=== PATIENT | female | born 1950 | race African-American/Black ===

== ENCOUNTER 2020-04-25 18:29 | Inpatient (IN) | payer OTHER ==
[2020-04-25] MEDS ORDERED: ACETAMINOPHEN 1000 MG/100 ML VIAL (NON FORMULARY) IVPB ONE (19:01)
[2020-04-25] MEDS ORDERED: ONDANSETRON 4 MG/2 ML VIAL IVPUSH ONE (19:01)
--- NOTE | 2020-04-25 19:02 | PDOC ---
History of Present Illness - General Chief Complaint: Pain, Acute Stated Complaint: ABD/PAIN/ALL QUADRANTS Time Seen by Provider: 04/25/20 18:46 - History of Present Illness Initial Comments: Consuelo Sanchez is a 69 y/o female with PMH significant for MS, sarcoidosis, HTN, HLD, presenting today with abdominal pain and fullness. Reports that she had a colonoscopy with Dr. Monsalve done on . Reports she has been feeling diffuse abdominal pain and fullness since . Reports nausea and vomiting w/o blood approx once a day. Has not had a bowel movement since Monday night (bowel prep). Has not been eating much much but able to tolerate PO fluids. She was prescribed pantoprazole and zofran after the colonoscopy. Reports diffuse abdominal pain that is worsening and abdominal fullness. No blood in the stool. No diarrhea. No dysuria. No headache/dizziness. No chest pain/shortness of breath. SurgHx: s/p hysterectomy and myomectomy Past History - Medical History Allergies/Adverse Reactions: Allergies Allergy/AdvReac Type Severity Reaction Status Date / Time No Known Allergies Allergy Verified 11/16/14 10:13 Home Medications: Ambulatory Orders Alendronate Sodium [Binosto] 70 mg PO DAILY 11/16/14 Clopidogrel Bisulfate [Plavix -] 75 mg PO DAILY 11/16/14 Pramipexole Di-HCl [Mirapex] 0.125 mg PO BID 11/16/14 Simvastatin [Zocor -] 20 mg PO DAILY 11/16/14 Irbesartan [Avapro] 150 mg PO DAILY 04/25/20 Ondansetron [Zofran *Odt*] 4 mg SL TID PRN 04/25/20 Pantoprazole Sodium [Protonix -] 40 mg PO DAILY 04/25/20 Spironolactone [Aldactone] 25 mg PO DAILY 04/25/20 Anemia: (PLATELET PROBLEMS IN PAST.) CVA: (RULING OUT MS PER RENALDO.) HTN: Yes Hypercholesterolemia: Yes - Surgical History Abdominal Surgery: Yes - Immunization History Immunization Up to Date: Yes (FLU UP TO DATE) - Psycho-Social/Smoking History Smoking History: Smoker current status UNK Have you smoked in the past 12 months: No - Substance Abuse Hx (Audit-C & DAST Scrn) How often the patient has a drink containing alcohol: Never Score: In Men: 4 or > Positive; In Women: 3 or > Positive: 0 Screen Result (Pos requires Nsg. Audit-10AR): Negative In the last yr the pt used illegal drug/Rx for NonMed reason: No Score: Yes response is considered Positive: 0 Screen Result (Positive result requires Nsg. DAST-10): Negative Review of Systems - Review of Systems Comments:: GENERAL/CONSTITUTIONAL: No fever or chills. No weakness._ HEAD, EYES, EARS, NOSE AND THROAT: No change in vision. No change in hearing. No sore throat._ CARDIOVASCULAR: No chest pain or shortness of breath_ RESPIRATORY: Denies cough, hemoptysis_ GASTROINTESTINAL: Reports nausea, vomiting, abdominal pain and fullness. GENITOURINARY: No dysuria, frequency, or change in urination._ MUSCULOSKELETAL: No joint or muscle swelling or pain. No neck or back pain._ SKIN: No rash_ NEUROLOGIC: No headache, vertigo, loss of consciousness, or change in strength/sensation._ ENDOCRINE: No increased thirst. No abnormal weight change_ HEMATOLOGIC/LYMPHATIC: No anemia, easy bleeding, or history of blood clots._ ALLERGIC/IMMUNOLOGIC: No hives or skin allergy._ *Physical Exam - Vital Signs Last Vital Signs Temp Pulse Resp BP Pulse Ox 98 F 125 H 18 109/70 99 04/25/20 18:37 04/25/20 18:37 04/25/20 18:37 04/25/20 18:37 04/25/20 18:37 - Physical Exam GENERAL: Awake, alert, and oriented to person/place/time, in no acute distress_ HEAD: No signs of trauma, normocephalic, atraumatic _ EYES: PERRLA, EOMI, sclera anicteric, conjunctiva clear_ ENT: Hearing grossly normal, nares patent, oropharynx clear without exudates. No uvular deviation. Moist mucosa_ NECK: Normal ROM, supple, no lymphadenopathy, JVD, or masses_ LUNGS: No distress, speaks in full sentences, clear to auscultation bilaterally _ HEART: Regular rate and rhythm, normal S1 and S2, no murmurs appreciated, peripheral pulses normal and equal bilaterally._ ABDOMEN: Soft, minimal tenderness, distended and full without fluid wave, normoactive bowel sounds. No guarding, no rebound. No masses_ EXTREMITIES: Normal inspection, Normal range of motion, no edema. No clubbing or cyanosis_ NEUROLOGICAL: Cranial nerves II through XII grossly intact. Normal speech, normal gait, no focal sensorimotor deficits _ SKIN: Warm, Dry, normal turgor, no rashes or lesions noted_ ED Treatment Course - LABORATORY CBC & Chemistry Diagram: 04/26/20 06:20 04/26/20 06:20 - RADIOLOGY Radiology Studies Ordered: Category Date Time Status ABDOMEN & PELVIS CT WITH CONTR [CT] Stat CT Scan 04/25/20 18:56 Ordered CHEST X-RAY PORTABLE* [RAD] Stat Radiology 04/25/20 18:57 Ordered Medical Decision Making - Medical Decision Making 04/25/20 19:00 69F s/p colonoscopy on presenting today with worsening abdominal pain and fullness. Took pantoprazole and zofran per Dr. Monsalve. Vomiting NBNB once a day. No BM since Monday night. Has not been eating but tolerating PO fluids. -cbc, cmp -ekg, trop, cxr -CT abd w/ IV contrast -lactic -tylenol -zofran 04/25/20 20:23 CXR shows concern for free air under diaphragm. Case d/w Dr. Monsalve. Will obtain CT abd w/o contrast. Pt started on rocephin and flagyl. Morphine for pain control. [address] Monsalve: [phone] 04/25/20 20:30 EKG shows 110bpm, sinus tachycardia, no axis deviation, WI 116, QTc 441, no ST elevation/depression, no prior for comparison. 04/25/20 21:05 Labs reviewed. Laboratory Last Values WBC 4.0 K/mm3 (4.0-10.0) 04/25/20 19:35 RBC 3.67 M/mm3 (3.60-5.2) 04/25/20 19:35 Hgb 11.0 GM/dL (10.7-15.3) 04/25/20 19:35 Hct 32.8 % (32.4-45.2) 04/25/20 19:35 MCV 89.3 fl (80-96) 04/25/20 19:35 MCH 30.0 pg (25.7-33.7) 04/25/20 19:35 MCHC 33.6 g/dl (32.0-36.0) 04/25/20 19:35 RDW 14.2 % (11.6-15.6) 04/25/20 19:35 Plt Count 214 K/MM3 (134-434) D 04/25/20 19:35 MPV 8.5 fl (7.5-11.1) 04/25/20 19:35 Absolute Neuts (auto) 2.8 K/mm3 (1.5-8.0) 04/25/20 19:35 Neutrophils % 70.4 % (42.8-82.8) 04/25/20 19:35 Lymphocytes % 11.0 % (8-40) 04/25/20 19:35 Monocytes % 18.2 % (3.8-10.2) H 04/25/20 19:35 Eosinophils % 0.1 % (0-4.5) 04/25/20 19:35 Basophils % 0.3 % (0-2.0) 04/25/20 19:35 Nucleated RBC % 0 % (0-0) 04/25/20 19:35 PT with INR 12.50 SEC (9.7-13.0) 04/25/20 19:35 INR 1.06 (0.83-1.09) 04/25/20 19:35 PTT (Actin FS) 27.6 SECONDS (25.2-36.5) 04/25/20 19:35 Sodium 132 mmol/L (136-145) L 04/25/20 19:35 Potassium 3.6 mmol/L (3.5-5.1) 04/25/20 19:35 Chloride 93 mmol/L (98-107) L 04/25/20 19:35 Carbon Dioxide 33 mmol/L (21-32) H 04/25/20 19:35 Anion Gap 7 MMOL/L (8-16) L 04/25/20 19:35 BUN 26.6 mg/dL (7-18) H 04/25/20 19:35 Creatinine 0.8 mg/dL (0.55-1.3) 04/25/20 19:35 Est GFR (CKD-EPI)AfAm 86.57 04/25/20 19:35 Est GFR (CKD-EPI)NonAf 74.70 04/25/20 19:35 Random Glucose 118 mg/dL (74-106) H 04/25/20 19:35 Lactic Acid 2.0 mmol/L (0.4-2.0) 04/25/20 19:35 Calcium 10.5 mg/dL (8.5-10.1) H 04/25/20 19:35 Total Bilirubin 1.1 mg/dL (0.2-1) H 04/25/20 19:35 AST 38 U/L (15-37) H 04/25/20 19:35 ALT 29 U/L (13-61) 04/25/20 19:35 Alkaline Phosphatase 71 U/L (45-117) 04/25/20 19:35 Creatine Kinase 102 U/L (26-192) 04/25/20 19:35 Troponin I < 0.02 ng/ml (0.00-0.05) 04/25/20 19:35 Total Protein 7.5 g/dl (6.4-8.2) 04/25/20 19:35 Albumin 3.8 g/dl (3.4-5.0) 04/25/20 19:35 04/25/20 21:33 CT abd findings d/w radiologist. SBO with transition point in the pelvis. No signs of free air in the abdomen. Trace ascites. Case d/w with Dr. Duong. Will admit with NGT. NGT tube placed with gastric content return. CXR ordered. 04/25/20 22:27 D/w Dr. Tovar who accepts the patient for admission under Dr. Barriga. 04/25/20 23:30 CXR shows NGT past the GE junction. Discharge - Discharge Information Problems reviewed: Yes Clinical Impression/Diagnosis: SBO (small bowel obstruction) Condition: Guarded - Admission Yes - Follow up/Referral - Patient Discharge Instructions - Post Discharge Activity
[2020-04-25] MEDS ORDERED: ACETAMINOPHEN INJECTION 100 ML IVPB ONE (19:44)
[2020-04-25 19:54] LABS: BASO % 0.3 % (0-2.0); EOS % 0.1 % (0-4.5); HEMATOCRIT 32.8 % (32.4-45.2); MCHC 33.6 g/dl (32.0-36.0); MEAN CELL VOLUME 89.3 fl (80-96); MEAN PLT VOLUME 8.5 fl (7.5-11.1); MONO % 18.2 % (3.8-10.2); NEUT % 70.4 % (42.8-82.8); PLATELET COUNT 214 K/MM3 (134-434); RBC 3.67 M/mm3 (3.60-5.2); RDW 14.2 % (11.6-15.6)
--- NOTE | 2020-04-25 20:10 | PDOC ---
Attending Attestation - Resident Resident Name: Darius Sarabia - ED Attending Attestation I have performed the following: I have examined & evaluated the patient, The case was reviewed & discussed with the resident, I agree w/resident's findings & plan - HPI HPI: 04/25/20 20:27 Pt comes with inability to eat properly or pee after colonsocopy done Thurs. Pt is uncomfortable. Ate a hard boiled egg today Pt looks weak and dehydrated. SHe is complaint with her meds Afebrile - Physicial Exam PE: 04/25/20 20:28 Pt appears unwell pale and thin heart tachy lungs CTAB abd diffuse discomfort; but no rigidity or guarding no flank pain neuro exam normal - Medical Decision Making 04/25/20 20:10 R/O perf CBC is normal 04/25/20 20:29 portable CXR shows free air under diaphragm. Sent to imaging irrigation worker for read. 04/25/20 21:00 Pt had coffee ground emesis. She will be given 80 mg protonix Pt understa 04/25/20 20:31 Patient Name: STEFANIE FATIMA THIS IS A PRELIMINARY REPORT DATE OF SERVICE: 2020-04-25 19:57:19 IMAGES: 2 EXAM: CHEST X-RAY PORTABLE* HISTORY: Abdominal distention COMPARISON: None. FINDINGS: No airspace consolidation. No pneumothorax. The costophrenic angles are well defined Likely scarring in the right mid lung field The cardiomediastinal silhouette is within normal limits The bony thorax is unremarkable Multiple prominent gas-filled loops of bowel in the right upper quadrant. Left subdiaphragmatic. lucency may also reflect gas-filled bowel in the left upper quadrant, however intra-abdominal free air cannot be excluded. Consider further evaluation with CT 04/25/20 21:44 Patient Name: STEFANIE FATIMA FINDINGS: There is subsegmental, dependent and compressive atelectasis at the lung bases Calcified subcarinal and bilateral hilar lymph nodes compatible with old granulomatous disease The visualized distal esophagus is distended with fluid, likely refluxed There are multiple distended loops of small bowel containing fluid with scattered air-fluid levels extending to a transition in the pelvis best seen on axial images 86 through 90 with decompression of the bowel distally compatible with small bowel obstruction. Suspected adhesions. There is trace ascites in the pelvis and mesenteric edema in the region of transition. No intra-abdominal free air The stomach is markedly distended with fluid Multiple stones within a decompressed gallbladder The liver, spleen, pancreas, adrenal glands and kidneys are grossly normal allowing for lack of intravenous contrast 04/25/20 21:46 Discharge - Discharge Information Problems reviewed: Yes Clinical Impression/Diagnosis: SBO (small bowel obstruction) Condition: Guarded - Follow up/Referral - Patient Discharge Instructions - Post Discharge Activity
[2020-04-25 20:12] LABS: INR 1.06 (0.83-1.09); PROTHROMBIN TIME (PATIENT) 12.5 SEC (9.7-13.0)
[2020-04-25] MEDS ORDERED: CEFTRIAXONE 1 GM in DEXTROSE 5%-WATER - 50 ML IVPB ONE (20:14)
[2020-04-25 20:15] LABS: ACTIVATED PTT 27.6 SECONDS (25.2-36.5)
[2020-04-25] MEDS ORDERED: MORPHINE SULFATE 2 MG/ML VIAL ONE ×2 (20:20→21:17)
[2020-04-25] MEDS ORDERED: LACTATED RINGERS SOLUTION 1000 ML INFUS.BAG IV ONE (20:22)
[2020-04-25] MEDS ORDERED: morphine CARPU-JECT 2 MG/1 ML DISP.SYRIN IVPUSH ONE ×2 (20:22→20:59)
[2020-04-25] MEDS ORDERED: CEFTRIAXONE 1 GM/50 ML BAG ONE (20:31)
[2020-04-25 20:34] LABS: ALBUMIN 3.8 g/dl (3.4-5.0); ALK PHOS 71 U/L (45-117); ANION GAP 7 MMOL/L (8-16); BILIRUBIN,TOTAL 1.1 mg/dL (0.2-1); BLOOD UREA NITROGEN 26.6 mg/dL (7-18); CALCIUM 10.5 mg/dL (8.5-10.1); CHLORIDE 93 mmol/L (98-107); CO2 33 mmol/L (21-32); CREATININE 0.8 mg/dL (0.55-1.3); GLUCOSE,RANDOM 118 mg/dL (74-106); POTASSIUM 3.6 mmol/L (3.5-5.1); SGOT/AST 38 U/L (15-37); SGPT/ALT 29 U/L (13-61); SODIUM 132 mmol/L (136-145); TOT PROT 7.5 g/dl (6.4-8.2)
[2020-04-25] MEDS ORDERED: PANTOPRAZOLE SODIUM 40 MG VIAL IVPB ONE (20:58)
[2020-04-25] MEDS ORDERED: PANTOPRAZOLE SODIUM 80 MG/200 ML BAG IVPB ONE (20:59)
--- NOTE | 2020-04-25 22:13 | PN ---
Teaching Attending Note Name of Resident: Cyndi Tovar ATTENDING PHYSICIAN STATEMENT I saw and evaluated the patient. I reviewed the resident's note and discussed the case with the resident. I agree with the resident's findings and plan as documented. SUBJECTIVE: Patient is a 69 year old woman with a PMH of Multiple sclerosis, Hysterectomy, Myomectomy, Sarcoidosis, HTN and HLD who presents to the ER with abdominal pain and fullness. Reports that she had a colonoscopy with Dr. Monsalve done on . Reports she has been feeling diffuse abdominal pain and fullness since . Reports nausea and vomiting without blood abouts once a day. Has not had a bowel movement since Monday night (bowel prep). Has not been eating much much but able to tolerate PO fluids. She was prescribed Pantoprazole and Zofran after the colonoscopy. Reports diffuse abdominal pain that is worsening and abdominal fullness. Vomited once in the ER. Denies blood in the stool, diarrhea, dysuria, headache/dizziness, chest pain, shortness of breath, fever or chills. Denies alcohol, tobacco or illicit drug use. No sick contacts or recent travels. Family history - father from [place]. OBJECTIVE: Alert Vital Signs Period Temp Pulse Resp BP Sys/Christopher Pulse Ox Last 24 Hr 98 F 125 18 109/70 99 HEENT: No Jaundice, eye redness or discharge, PERRLA, EOMI. Normocephalic, atraumatic. External ears are normal and hearing is grossly intact. No nasal discharge. Neck: Supple, nontender. No palpable adenopathy or thyromegaly. No JVD Chest: Good effort. Clear to auscultation and percussion. Heart: Regular. No S3, rub or murmur Abdomen: Distended, soft and tender and no HSM. No rebound or guarding. Normal bowel sounds. Ext: Peripheral pulses intact. No leg edema. Skin: Warm and dry. No petechiae, rash or ecchymosis. Neuro: Alert. Oriented x3. CN 2-12 grossly intact. Sensation grossly intact in all four extremities and DTR are symmetric. Psych: Appropriate mood and affect. Good insight. Home Medications Medication Instructions Recorded Alendronate Sodium [Binosto] 70 mg PO DAILY 11/16/14 Clopidogrel Bisulfate [Plavix -] 75 mg PO DAILY 11/16/14 Pramipexole Di-HCl [Mirapex] 0.125 mg PO BID 11/16/14 Simvastatin [Zocor -] 20 mg PO DAILY 11/16/14 Irbesartan [Avapro] 150 mg PO DAILY 04/25/20 Ondansetron [Zofran *Odt*] 4 mg SL TID PRN 04/25/20 Pantoprazole Sodium [Protonix -] 40 mg PO DAILY 04/25/20 Spironolactone [Aldactone] 25 mg PO DAILY 04/25/20 Abnormal Lab Results 04/25/20 04/25/20 19:35 19:35 Monocytes % 18.2 H Sodium 132 L Chloride 93 L Carbon Dioxide 33 H Anion Gap 7 L BUN 26.6 H Random Glucose 118 H Calcium 10.5 H Total Bilirubin 1.1 H AST 38 H ASSESSMENT AND PLAN: 1. Small bowel obstruction - CT scan of abdomen/pelvis without contrast shows - "There is subsegmental, dependent and compressive atelectasis at the lung bases. Calcified subcarinal and bilateral hilar lymph nodes compatible with old granulomatous disease. The visualized distal esophagus is distended with fluid, likely refluxed. There are multiple distended loops of small bowel containing fluid with scattered air-fluid levels extending to a transition in the pelvis best seen on axial images 86 through 90 with decompression of the bowel distally compatible with small bowel obstruction. Suspected adhesions. There is trace ascites in the pelvis and mesenteric edema in the region of transition. No intra-abdominal free air. The stomach is markedly distended with fluid. Multiple stones within a decompressed gallbladder. The liver, spleen, pancreas, adrenal glands and kidneys are grossly normal allowing for lack of intravenous contrast." CXR shows increased interstitial markings, perihilar calcified nodules/lymphnodes (R>L) and hilar prominence. ER staff prescribed Tylenol, Zofran, Protonix, IV LR, IV Ceftriaxone, IV Flagyl and IV Morphine for the patient. Will avoid IV LR, use IV NS and keep her NPO. Surgery consulted and NGT is being placed. Hypercalcemia likely due to sarcoidosis - IV NS will enhance calcium excretion and correct dehydration. EKG shows sinus tachycardia at 110/minute and QTc [address]-T wave changes. Initial troponin is negative. Viral testing for COVID-19 ordered and patient placed on airborne, droplet and contact isolation. Will continue comprehensive care for all of patients comorbid conditions. 2. Hypertension Hold antihypertensive drugs for low BP. Restart suitable outpatient antihypertensive drugs when clinically appropriate. Subsequently, will revise regimen to ensure [id number] excellent BP control. Patient counseled on the injurious effects of uncontrolled hypertension. Nonpharmacologic measures to control hypertension like weight loss, salt restriction and exercise stressed. Importance of adherence to treatment regimen and attainment of normotension emphasized. 3. DVT prophylaxis - SCD. 4. Advance directives - Full code
[2020-04-25] MEDS ORDERED: MORPHINE SULFATE 2 MG/ML VIAL IVPUSH PRN (23:03)
[2020-04-25] MEDS ORDERED: SODIUM CHLORIDE 1,000 ML IV SCH (23:15)
--- NOTE | 2020-04-25 23:22 | HP ---
CHIEF COMPLAINT: Abdominal pain/fullness/urinary retention PCP: Luis Combs HISTORY OF PRESENT ILLNESS: Pt is a 69 year old female with PMHx of MS, sarcoidosis, HTN and HLD presenting with abdominal pain and fullness since after her colonoscopy with Dr. Monsalve. Pt states she has not urinated or had a bowel movement since then. She states she also has had one daily episode of dark black vomit since . Pt states she has been able to tolerate PO fluids, and had a hard boiled egg this morning that she was able to keep down. Pt states the abdominal pain and fullness has been constant since . Pt states she was given Zofran and Protonix to take after her colonoscopy which have not been of any help. Pt denies fever, chills, SOB, diarrhea. Constipated and not urinated since ER course was notable for: (1) Rocephin, flagyl for concern of free air under diaphragm (2) CT/abd pelvis shows SBO with transition point in pelvis, no intraabdoinal free air notes; bilateral hilar lymph nodes calcified consistent with sarcoid; trace ascites; atelectsais at lung bases (3) [place] catheter placed, NG/NPO/IVF per Dr. Duong (surgery) Recent Travel: Denies PAST MEDICAL HISTORY: As stated in HPI PAST SURGICAL HISTORY: Hysterectomy 1989 Myomectomy 2000 Social History: Smoking: Denies Alcohol: Denies Drugs: Denies Allergies No Known Allergies Allergy (Verified 11/16/14 10:13) HOME MEDICATIONS: Home Medications Medication Instructions Recorded Alendronate Sodium [Binosto] 70 mg PO DAILY 11/16/14 Clopidogrel Bisulfate [Plavix -] 75 mg PO DAILY 11/16/14 Pramipexole Di-HCl [Mirapex] 0.125 mg PO BID 11/16/14 Simvastatin [Zocor -] 20 mg PO DAILY 11/16/14 Irbesartan [Avapro] 150 mg PO DAILY 04/25/20 Ondansetron [Zofran *Odt*] 4 mg SL TID PRN 04/25/20 Pantoprazole Sodium [Protonix -] 40 mg PO DAILY 04/25/20 Spironolactone [Aldactone] 25 mg PO DAILY 04/25/20 REVIEW OF SYSTEMS CONSTITUTIONAL: Absent: fever, chills, diaphoresis, generalized weakness, malaise, loss of appetite, weight change HEENT: Absent: rhinorrhea, nasal congestion, throat pain, throat swelling, difficulty swallowing, mouth swelling, ear pain, eye pain, visual changes CARDIOVASCULAR: Absent: chest pain, syncope, palpitations, irregular heart rate, lightheadedness, peripheral edema RESPIRATORY: Absent: cough, shortness of breath, dyspnea with exertion, orthopnea, wheezing, stridor, hemoptysis GASTROINTESTINAL: Abdominal pain/distension/nausea and vomiting/constipation Absent: diarrhea, melena, hematochezia GENITOURINARY: Absent: dysuria, frequency, urgency, hesitancy, hematuria, flank pain, genital pain MUSCULOSKELETAL: Absent: myalgia, arthralgia, joint swelling, back pain, neck pain SKIN: Absent: rash, itching, pallor HEMATOLOGIC/IMMUNOLOGIC: Absent: easy bleeding, easy bruising, lymphadenopathy, frequent infections ENDOCRINE: Absent: unexplained weight gain, unexplained weight loss, heat intolerance, cold intolerance NEUROLOGIC: Absent: headache, focal weakness or paresthesias, dizziness, unsteady gait, seizure, mental status changes, bladder or bowel incontinence PSYCHIATRIC: Absent: anxiety, depression, suicidal or homicidal ideation, hallucinations. PHYSICAL EXAMINATION Vital Signs - 24 hr 04/25/20 18:37 Temperature 98 F Pulse Rate 125 H Respiratory 18 Rate Blood Pressure 109/70 O2 Sat by Pulse 99 Oximetry (%) GENERAL: Awake, alert, and fully oriented, in no acute distress. HEAD: Normal with no signs of trauma. EYES: Pupils equal, round and reactive to light, extraocular movements intact, sclera anicteric, conjunctiva clear. No lid lag. EARS, NOSE, THROAT: Ears normal, nares patent, oropharynx clear without exudates. Moist mucous membranes. NECK: Normal range of motion, supple without lymphadenopathy, JVD, or masses. LUNGS: Breath sounds equal, clear to auscultation bilaterally. No wheezes, and no crackles. No accessory muscle use. HEART: Regular rate and rhythm, normal S1 and S2 without murmur, rub or gallop. ABDOMEN: Soft, tender, distended, hypoactive bowel sounds. no guarding, no rebound, no masses. No hepatomegaly or splenomegaly. MUSCULOSKELETAL: Normal range of motion at all joints. No bony deformities or tenderness. No CVA tenderness. UPPER EXTREMITIES: 2+ pulses, warm, well-perfused. No cyanosis. No clubbing. No peripheral edema. LOWER EXTREMITIES: 2+ pulses, warm, well-perfused. No calf tenderness. No peripheral edema. NEUROLOGICAL: Cranial nerves II-XII intact. Normal speech. Normal gait. PSYCHIATRIC: Cooperative. Good eye contact. Appropriate mood and affect. SKIN: Warm, dry, normal turgor, no rashes or lesions noted, normal capillary refill. Laboratory Results - last 24 hr 04/25/20 04/25/20 04/25/20 19:35 19:35 19:35 WBC 4.0 RBC 3.67 Hgb 11.0 Hct 32.8 MCV 89.3 MCH 30.0 MCHC 33.6 RDW 14.2 Plt Count 214 D MPV 8.5 Absolute Neuts (auto) 2.8 Neutrophils % 70.4 Lymphocytes % 11.0 Monocytes % 18.2 H Eosinophils % 0.1 Basophils % 0.3 Nucleated RBC % 0 PT with INR 12.50 INR 1.06 PTT (Actin FS) 27.6 Sodium 132 L Potassium 3.6 Chloride 93 L Carbon Dioxide 33 H Anion Gap 7 L BUN 26.6 H Creatinine 0.8 Est GFR (CKD-EPI)AfAm 86.57 Est GFR (CKD-EPI)NonAf 74.70 Random Glucose 118 H Lactic Acid Calcium 10.5 H Total Bilirubin 1.1 H AST 38 H ALT 29 Alkaline Phosphatase 71 Creatine Kinase 102 Troponin I < 0.02 Total Protein 7.5 Albumin 3.8 04/25/20 19:35 WBC RBC Hgb Hct MCV MCH MCHC RDW Plt Count MPV Absolute Neuts (auto) Neutrophils % Lymphocytes % Monocytes % Eosinophils % Basophils % Nucleated RBC % PT with INR INR PTT (Actin FS) Sodium Potassium Chloride Carbon Dioxide Anion Gap BUN Creatinine Est GFR (CKD-EPI)AfAm Est GFR (CKD-EPI)NonAf Random Glucose Lactic Acid 2.0 Calcium Total Bilirubin AST ALT Alkaline Phosphatase Creatine Kinase Troponin I Total Protein Albumin ASSESSMENT/PLAN: Pt is a 69 year old female with PMHx MS, sarcoidosis, HTN and HLD presenting with abdominal pain and fullness, no urination or bowel movements since after her colonoscopy with Dr. Monsalve admitted for SBO as seen on CT #Small bowel obstruction -CT ab/pelvis showing SBO without free air with transition point in pelvis -Rec'd flagyl and rocephin in ED due to concern of free air; ruled out on imaging; no leukocytosis/afebrile/lactic WNL -Surgery consulted; IVF/NPO/NGT -[place] catheter placed due to lack of urination since -PRN morphine #Hx of HTN -On ibersartan at home -Held -BP 109/70 #Hx of Sarcoidosis -calcified bilateral hilar lymph nodes seen on CT/cxr -continue home alendronate -Ca 10.5 #Hx of MS #Hx of HLD -continue home statin FEN: NPO IVF NGT Monitor electrolytes PPX: SCD Dispo Admitted to med surg. SBO --> NPO/IVF/NGT. [place] placed for urinary retention since . Monitor improvement. Consulted surg. Family Medical History Family History: As Documented Visit type - Medication Review Med list reviewed for High Risk Meds patients 65 and older: Yes - Emergency Visit Emergency Visit: Yes ED Registration Date: 04/25/20 Care time: The patient presented to the Emergency Department on the above date and was hospitalized for further evaluation of their emergent condition. - New Patient This patient is new to me today: No - Critical Care Critical Care patient: No ATTENDING PHYSICIAN STATEMENT I saw and evaluated the patient. I reviewed the resident's note and discussed the case with the resident. I agree with the resident's findings and plan as documented. SUBJECTIVE: OBJECTIVE: ASSESSMENT AND PLAN:
[2020-04-26] MEDS ORDERED: MORPHINE SULFATE 2 MG/ML VIAL IVPUSH PRN (00:19)
[2020-04-26 01:26] LABS: URINE APPEARANCE CLOUDY; URINE BILIRUBIN NEGATIVE (NEGATIVE); URINE COLOR DK YELLOW; URINE GLUCOSE (UA) NEGATIVE (NEGATIVE); URINE KETONE TRACE (NEGATIVE); URINE LEUK ESTERASE NEGATIVE (NEGATIVE); URINE NITRITE NEGATIVE (NEGATIVE); URINE PROTEIN TRACE (NEGATIVE)
[2020-04-26] MEDS ORDERED: MORPHINE SULFATE 2 MG/ML VIAL ONE (03:18)
[2020-04-26 07:13] LABS: BASO % 0.1 % (0-2.0); HEMATOCRIT 29.6 % (32.4-45.2); HEMOGLOBIN 10.1 GM/dL (10.7-15.3); LYMPH % 19.4 % (8-40); MCH 30.4 pg (25.7-33.7); MCHC 34.3 g/dl (32.0-36.0); MEAN CELL VOLUME 88.8 fl (80-96); MONO % 19.2 % (3.8-10.2); NEUT % 58.3 % (42.8-82.8); PLATELET COUNT 166 K/MM3 (134-434); RBC 3.33 M/mm3 (3.60-5.2); RDW 13.8 % (11.6-15.6)
[2020-04-26 07:20] LABS: WHITE BLOOD COUNT 1.3 K/mm3 (4.0-10.0)
[2020-04-26 07:21] LABS: BLOOD UREA NITROGEN 22.8 mg/dL (7-18); CALCIUM 9.4 mg/dL (8.5-10.1); CREATININE 0.6 mg/dL (0.55-1.3); PHOSPHOROUS 3.5 mg/dL (2.5-4.9); POTASSIUM 3.5 mmol/L (3.5-5.1)
--- NOTE | 2020-04-26 08:14 | PN ---
Progress Note (short form) - Note Progress Note: S: 69yo F who presented due to abdominal pain and distention admitted due to likely small bowel obstruction. Pt had colonoscopy performed with Dr. Monsalve on 04/23/2020 without significant findings (per patient) and started having fullness shortly thereafter. Patient noted development of nausea and NB/NB vomiting and came to the hospital as a result. Patient's las BM was 04/22 with her bowel prep and she has not been eating much due to feeling unwell. Pt was tolerating fluids. Pt currently has diffuse abdominal pain and distention. No fevers, no true shortness of breath, no CP. Vital Signs Temperature 97.9 F 04/26/20 06:21 Pulse Rate 110 H 04/26/20 06:21 Respiratory Rate 18 04/26/20 07:30 Blood Pressure 130/72 04/26/20 06:21 O2 Sat by Pulse Oximetry (%) 93 L 04/26/20 07:30 GENERAL: Awake, alert, and fully oriented, in no acute distress. HEENT: NC/AT, EOMI, VIVI, anicteric sclera, MMM, NGT in nare without ulceration: 150cc bilious output LUNG: CTA b/l with shallow inspirations, no wheezes or rales CARD: RRR no murmurs ABD: Soft, diffuse mild tenderness, distended with hypoactive BS, no guarding, no rebound. No hernias appreciated. EXT: No edema, no calf tendernes, strong disal pulses SKIN: No rashes or lesions; no ecchymotic areas CBC, BMP 04/26/20 06:20 04/26/20 06:20 Assessment and Plan: Small bowel obstruction with transition point Cholelithiasis Leukopenia Normocytic Anemia CAD Hyponatremia History of HTN History of MS --SBO with transition point in pelvis --NGT decompression with strict NPO --Surgery and GI on board --Considering leukopenia and normocytic anemia will cover with broad spectrum antibiotics, however will repeat CBC to ensure accuracy --Avoid opiate pain mitigation unless severe pain; optimize Tylenol dosing --Holding all nonessential PO medications due to above. --AXR today noted with dilated bowel loops --Repeat AXR in AM --Monitor NGT drain output Dispo: Monitor M/S Saud Pretty, DO - IM
[2020-04-26] MEDS ORDERED: ACETAMINOPHEN 1000 MG/100 ML VIAL (NON FORMULARY) IVPB PRN (08:18)
[2020-04-26 09:13] LABS: ANISOCYTOSIS 1+; MACROCYTOSIS 0; PLATELET ESTIMATE NORMAL
[2020-04-26] MEDS ORDERED: CEFTRIAXONE 1 GM/50 ML BAG ONE (10:38)
[2020-04-26] MEDS: CEFTRIAXONE 1 GM in DEXTROSE 5%-WATER - 50 ML IVPB SCH (10:47)
--- NOTE | 2020-04-26 13:12 | CONSULT ---
- Consultation REQUESTING PROVIDER: CONSULT REQUEST: We have been asked to surgically evaluate this patient for (specify). Hospitalist:Saud Pretty MD HISTORY OF PRESENT ILLNESS:SUSANA who is a is a 69 y/o female who presented to the [facility] ED 04/25/2020 with abdominal pain and fullness. She had a colonoscopy with Dr. Monsalve done on 04/23/2020 as a " f/u". She reports she has been feeling diffuse abdominal pain and fullness since immediately after the procedure and perhaps before. Reports nausea and vomiting. She has not had a bowel movement since 04/22/2020 since the bowel prep. She has not been eating but is able to tolerate PO fluids. She was prescribed pantoprazole and zofran after the colonoscopy. She states she has diffuse abdominal pain that is worsening and abdominal fullness. PMHx:MS/sarcoid/HTN/HLD PSHx: TAHBSO/myomectomy Home Medications Medication Instructions Recorded Alendronate Sodium [Binosto] 70 mg PO DAILY 11/16/14 Clopidogrel Bisulfate [Plavix -] 75 mg PO DAILY 11/16/14 Pramipexole Di-HCl [Mirapex] 0.125 mg PO BID 11/16/14 Simvastatin [Zocor -] 20 mg PO DAILY 11/16/14 Irbesartan [Avapro] 150 mg PO DAILY 04/25/20 Ondansetron [Zofran *Odt*] 4 mg SL TID PRN 04/25/20 Pantoprazole Sodium [Protonix -] 40 mg PO DAILY 04/25/20 Spironolactone [Aldactone] 25 mg PO DAILY 04/25/20 Allergies Allergy/AdvReac Type Severity Reaction Status Date / Time No Known Allergies Allergy Verified 11/16/14 10:13 REVIEW OF SYSTEMS: CONSTITUTIONAL: Absent: fever, chills, diaphoresis, generalized weakness, malaise, loss of appetite, weight change CARDIOVASCULAR: Absent: chest pain, syncope, palpitations, irregular heart rate, lightheadedness, peripheral edema RESPIRATORY: Absent: cough, shortness of breath, dyspnea with exertion, wheezing, stridor, hemoptysis GASTROINTESTINAL: Absent: abdominal pain, abdominal distension, nausea, vomiting, diarrhea, constipation, melena, hematochezia GENITOURINARY: Absent: dysuria, frequency, urgency, hesitancy, hematuria, flank pain, genital pain MUSCULOSKELETAL: Absent: myalgia, arthralgia, joint swelling, back pain, neck pain SKIN: Absent: rash, itching, pallor HEMATOLOGIC/IMMUNOLOGIC: Absent: easy bleeding, easy bruising, lymphadenopathy NEUROLOGIC: Absent: headache, Present: focal weakness, Absent:paresthesias, dizziness, Present:unsteady gait, Absent: seizure, mental status changes, bladder or bowel incontinence PSYCHIATRIC: Absent: anxiety, depression, suicidal or homicidal ideation, hallucinations. PHYSICAL EXAM: GENERAL: Awake, alert, and fully oriented, in no acute distress. HEAD: Normal with no signs of trauma. EYES: PERRL, sclera anicteric, conjunctiva clear. NECK: Normal ROM, supple without lymphadenopathy, JVD, or masses. ABDOMEN: Soft, minimally tender, distended, hypooactive bowel sounds, no guarding, no rebound, no masses. No organomegaly. No hernias; healed scar. MUSCULOSKELETAL: Normal ROM at all joints. No bony deformities or tenderness. No CVA tenderness. UPPER EXTREMITIES: 2+ pulses, warm, well-perfused. No cyanosis. Cap refill <2 seconds. No peripheral edema. LOWER EXTREMITIES: 2+ pulses, warm, well-perfused. No calf tenderness. No peripheral edema. NEUROLOGICAL: Normal speech, gait not observed. PSYCH: Cooperative. Good eye contact. Appropriate mood and affect. SKIN: Warm, dry, normal turgor, no rashes or lesions noted. Vital Signs Temperature 98.2 F 04/26/20 10:25 Pulse Rate 103 H 04/26/20 10:25 Respiratory Rate 17 04/26/20 10:25 Blood Pressure 121/71 04/26/20 10:25 O2 Sat by Pulse Oximetry (%) 98 04/26/20 10:25 Lab Results WBC 1.3 K/mm3 (4.0-10.0) L* 04/26/20 06:20 RBC 3.33 M/mm3 (3.60-5.2) L 04/26/20 06:20 Hgb 10.1 GM/dL (10.7-15.3) L 04/26/20 06:20 Hct 29.6 % (32.4-45.2) L 04/26/20 06:20 MCV 88.8 fl (80-96) 04/26/20 06:20 MCHC 34.3 g/dl (32.0-36.0) 04/26/20 06:20 RDW 13.8 % (11.6-15.6) 04/26/20 06:20 Plt Count 166 K/MM3 (134-434) D 04/26/20 06:20 INR 1.06 (0.83-1.09) 04/25/20 19:35 Sodium 133 mmol/L (136-145) L 04/26/20 06:20 Potassium 3.5 mmol/L (3.5-5.1) 04/26/20 06:20 Chloride 94 mmol/L (98-107) L 04/26/20 06:20 Carbon Dioxide 32 mmol/L (21-32) 04/26/20 06:20 Anion Gap 7 MMOL/L (8-16) L 04/26/20 06:20 BUN 22.8 mg/dL (7-18) H 04/26/20 06:20 Creatinine 0.6 mg/dL (0.55-1.3) 04/26/20 06:20 Random Glucose 95 mg/dL (74-106) 04/26/20 06:20 Calcium 9.4 mg/dL (8.5-10.1) 04/26/20 06:20 Blood Type O POSITIVE 04/26/20 00:50 Antibody Screen Negative 04/26/20 00:50 CT a/p images and films reviewed IMP: post colonoscopy abdominal pain and distention; ? of SBO ? PLAN: NPO/IVF/I/O/NGT; f/u AXR's and serial exams; will f/u; films today show dilated small bowel loops; ? small amount of air in the colon; no clear cut a/f levels; will order films for 04/27/2020. Lucian Duong MD FACS
--- NOTE | 2020-04-26 14:06 | CON.GI ---
Consult Consult Specialty:: GI - History of Present Illness History of Present Illness: 69 y/o F s/p diagnostic colonoscopy 04/23/22 was noted to have redundant sigmoid. The next day she developed vague abdominal pain associated with one episode of vomiting. Because of the persistent symptoms she went to the ED for further evaluation and management. In the ER, FUA revealed possible perforation. CT without contrast revealed SBO with mesenteric edema. NGT was inserted and drained 400 cc dark geen fluid overnight which provided complete relief of her symptoms. She is hungry and thirsty. Her WBC dropped to 1500. She was noted to have mild renal insufficiency - Alcohol/Substance Use Hx Alcohol Use: No - Smoking History Smoking history: Smoker current status UNK Have you smoked in the past 12 months: No Home Medications - Allergies Allergies/Adverse Reactions: Allergies Allergy/AdvReac Type Severity Reaction Status Date / Time No Known Allergies Allergy Verified 11/16/14 10:13 - Home Medications Home Medications: Ambulatory Orders Alendronate Sodium [Binosto] 70 mg PO DAILY 11/16/14 Clopidogrel Bisulfate [Plavix -] 75 mg PO DAILY 11/16/14 Pramipexole Di-HCl [Mirapex] 0.125 mg PO BID 11/16/14 Simvastatin [Zocor -] 20 mg PO DAILY 11/16/14 Irbesartan [Avapro] 150 mg PO DAILY 04/25/20 Ondansetron [Zofran *Odt*] 4 mg SL TID PRN 04/25/20 Pantoprazole Sodium [Protonix -] 40 mg PO DAILY 04/25/20 Spironolactone [Aldactone] 25 mg PO DAILY 04/25/20 Physical Exam-GI Vital Signs: Vital Signs Temperature 98.2 F 04/26/20 10:25 Pulse Rate 103 H 04/26/20 10:25 Respiratory Rate 17 04/26/20 10:25 Blood Pressure 121/71 04/26/20 10:25 O2 Sat by Pulse Oximetry (%) 98 04/26/20 10:25 Constitutional: Yes: Well Nourished Eyes: Yes: Conjunctiva Clear HENT: Yes: Atraumatic Neck: Yes: Supple Cardiovascular: Yes: Regular Rate and Rhythm Respiratory: Yes: CTA Bilaterally ...Auscultate: Yes: Normoactive Bowel Sounds ...Palpate: Yes: Soft. No: Firm/Rigid, Guarding, Hepatomegaly, Mass, Pulsatile Mass, Splenomegaly, Tenderness ...Percussion: No: Tympanitic Labs: CBC, BMP 04/26/20 06:20 04/26/20 06:20 INR, PTT INR 1.06 (0.83-1.09) 04/25/20 19:35 CBC,CMP WBC 1.3 K/mm3 (4.0-10.0) L* 04/26/20 06:20 RBC 3.33 M/mm3 (3.60-5.2) L 04/26/20 06:20 Hgb 10.1 GM/dL (10.7-15.3) L 04/26/20 06:20 Hct 29.6 % (32.4-45.2) L 04/26/20 06:20 MCV 88.8 fl (80-96) 04/26/20 06:20 MCH 30.4 pg (25.7-33.7) 04/26/20 06:20 MCHC 34.3 g/dl (32.0-36.0) 04/26/20 06:20 RDW 13.8 % (11.6-15.6) 04/26/20 06:20 Plt Count 166 K/MM3 (134-434) D 04/26/20 06:20 MPV 9.0 fl (7.5-11.1) 04/26/20 06:20 Absolute Neuts (auto) 0.7 K/mm3 (1.5-8.0) L 04/26/20 06:20 Neutrophils % 58.3 % (42.8-82.8) 04/26/20 06:20 Neutrophils % (Manual) 29.3 % (42.8-82.8) L 04/26/20 06:20 Band Neutrophils % 29.3 % 04/26/20 06:20 Lymphocytes % 19.4 % (8-40) D 04/26/20 06:20 Lymphocytes % (Manual) 26.3 % (8-40) 04/26/20 06:20 Monocytes % 19.2 % (3.8-10.2) H 04/26/20 06:20 Monocytes % (Manual) 10 % (3.8-10.2) 04/26/20 06:20 Eosinophils % 3.0 % (0-4.5) D 04/26/20 06:20 Eosinophils % (Manual) 3.0 % (0-4.5) 04/26/20 06:20 Basophils % 0.1 % (0-2.0) 04/26/20 06:20 Basophils % (Manual) 0.0 % (0-2.0) 04/26/20 06:20 Myelocytes % (Man) 0 % (0-2) 04/26/20 06:20 Promyelocytes % (Man) 0 % (0-2) 04/26/20 06:20 Blast Cells % (Manual) 0 % (0-0) 04/26/20 06:20 Nucleated RBC % 0 % (0-0) 04/26/20 06:20 Metamyelocytes 0 % (0-2) 04/26/20 06:20 Hypochromia 0 04/26/20 06:20 Platelet Estimate Normal 04/26/20 06:20 Polychromasia 0 04/26/20 06:20 Poikilocytosis 0 04/26/20 06:20 Anisocytosis 1+ 04/26/20 06:20 Microcytosis 1+ 04/26/20 06:20 Macrocytosis 0 04/26/20 06:20 Sodium 133 mmol/L (136-145) L 04/26/20 06:20 Potassium 3.5 mmol/L (3.5-5.1) 04/26/20 06:20 Chloride 94 mmol/L (98-107) L 04/26/20 06:20 Carbon Dioxide 32 mmol/L (21-32) 04/26/20 06:20 Anion Gap 7 MMOL/L (8-16) L 04/26/20 06:20 BUN 22.8 mg/dL (7-18) H 04/26/20 06:20 Creatinine 0.6 mg/dL (0.55-1.3) 04/26/20 06:20 Est GFR (CKD-EPI)AfAm 107.03 04/26/20 06:20 Est GFR (CKD-EPI)NonAf 92.35 04/26/20 06:20 Random Glucose 95 mg/dL (74-106) 04/26/20 06:20 Lactic Acid 2.0 mmol/L (0.4-2.0) 04/25/20 19:35 Calcium 9.4 mg/dL (8.5-10.1) 04/26/20 06:20 Phosphorus 3.5 mg/dL (2.5-4.9) 04/26/20 06:20 Magnesium 2.0 mg/dL (1.8-2.4) 04/26/20 06:20 Total Bilirubin 1.1 mg/dL (0.2-1) H 04/25/20 19:35 AST 38 U/L (15-37) H 04/25/20 19:35 ALT 29 U/L (13-61) 04/25/20 19:35 Alkaline Phosphatase 71 U/L (45-117) 04/25/20 19:35 Creatine Kinase 102 U/L (26-192) 04/25/20 19:35 Troponin I < 0.02 ng/ml (0.00-0.05) 04/25/20 19:35 Total Protein 7.5 g/dl (6.4-8.2) 04/25/20 19:35 Albumin 3.8 g/dl (3.4-5.0) 04/25/20 19:35 Problem List - Problems (1) SBO (small bowel obstruction) Assessment/Plan: --resolving R> continue NGT drainage serial abdominal examination IV hydration FUA in am continue antibiotics surgical ff-up Code(s): K56.609 - UNSP INTESTNL OBST, UNSP TO PARTIAL VERSUS COMPLETE OBST
[2020-04-26] MEDS: SODIUM CHLORIDE 1,000 ML IV SCH (14:27)
[2020-04-26 23:31] VITALS: BMI 25.3
[2020-04-27] MEDS: SODIUM CHLORIDE 1,000 ML IV SCH ×2 (01:11→13:58)
[2020-04-27 07:32] LABS: HEMATOCRIT 31.5 % (32.4-45.2); HEMOGLOBIN 10.4 GM/dL (10.7-15.3); MCH 29.7 pg (25.7-33.7); MCHC 33.2 g/dl (32.0-36.0); MEAN CELL VOLUME 89.4 fl (80-96); MEAN PLT VOLUME 8.9 fl (7.5-11.1); PLATELET COUNT 184 K/MM3 (134-434); RBC 3.52 M/mm3 (3.60-5.2); RDW 14.2 % (11.6-15.6); WHITE BLOOD COUNT 3.5 K/mm3 (4.0-10.0)
[2020-04-27 08:06] LABS: POTASSIUM 3.4 mmol/L (3.5-5.1)
[2020-04-27 08:36] LABS: BLOOD UREA NITROGEN 22.1 mg/dL (7-18); CALCIUM 9.5 mg/dL (8.5-10.1); CREATININE 0.5 mg/dL (0.55-1.3)
--- NOTE | 2020-04-27 09:24 | PN ---
Progress Note (short form) - Note Progress Note: Surgery: Pt states that she isn't having any abd pain. NO BM/ flatus Vital Signs Period Temp Pulse Resp BP Sys/Christopher Pulse Ox Last 24 Hr 97.8 F-98.7 F 87-110 17-20 111-131/60-71 92-99 NGT: 1000ml bilious GEN: A&0x3, NAD ABD: soft, non-distended, non-tender CBC, BMP 04/27/20 07:20 04/27/20 07:20 A/P: 69 yo female s/p colonscopy as outpt now admitted with abd pain. AXR ordered for reveals continue SBO, NGT pulled back to 60cm(was at 75cm) and taped into place. Draining bile K 3.4 repleted today with KCL riders. Repeat BMP ordered for tomorrow and abd xray D/w Dr. Duong <Olivia Ramírez - Last Filed: 04/27/20 17:31> - Note Progress Note: Attending Surgeon: I personally saw and examined the patient. My examination reveals a patient with an SBO. I discussed the case with the surgical PA and agree with their findings and plan of care with any exceptions as noted. ~ Lucian Duong MD, FACS <Lucian Duong - Last Filed: 04/29/20 19:50>
[2020-04-27] MEDS ORDERED: cefTRIAXone SODIUM 1 GM VIAL ONE (10:23)
[2020-04-27] MEDS ORDERED: DEXTROSE 5%-WATER - 50 ML IVPB ONE (10:23)
[2020-04-27] MEDS: CEFTRIAXONE 1 GM in DEXTROSE 5%-WATER - 50 ML IVPB SCH (10:27)
--- NOTE | 2020-04-27 11:00 | EKG ---
Test Reason : Blood Pressure : / mmHG Vent. Rate : 110 BPM Atrial Rate : 110 BPM P-R Int : 116 ms QRS Dur : 076 ms QT Int : 326 ms P-R-T Axes : 071 059 -33 degrees QTc Int : 441 ms SINUS TACHYCARDIA NONSPECIFIC ST AND T WAVE ABNORMALITY ABNORMAL ECG NO PREVIOUS ECGS AVAILABLE Confirmed by OMAR HILLS MD ([id number]) on 04/27/2020 11:00:15 AM Referred By: Confirmed By:OMAR HILLS MD
--- NOTE | 2020-04-27 14:51 | PN ---
Teaching Attending Note Name of Resident: Travon Segal ATTENDING PHYSICIAN STATEMENT I saw and evaluated the patient. I reviewed the resident's note and discussed the case with the resident. I agree with the resident's findings and plan as documented. SUBJECTIVE: Seen and examined at bedside. Patient reports continued abdominal pain. KUB s hows high-grade small bowel obstruction. Patient remains n.p.o. with NG tube OBJECTIVE Last Vital Signs Temp Pulse Resp BP Pulse Ox 98.2 F 89 17 130/70 93 L 04/27/20 14:00 04/27/20 14:00 04/27/20 14:00 04/27/20 14:00 04/27/20 14:00 PE: Per resident note Labs/Imaging: reviewed ASSESSMENT/PLAN 69-year-old female with a history of MS, sarcoidosis, hypertension, hyperlipidemia recent diagnostic colonoscopy on 04/23/2020 presented with small bowel obstruction and mesenteric edema. #Small bowel obstruction N.p.o. with NG tube placed Surgery on board Continue fluids Continue ceftriaxone, Flagyl Pain control #Urinary obstruction [place] catheter in place Pending decision by surgical team regarding possible surgical management. If no plans for surgery in near future would recommend trial of void #On Plavix Confirm indication for Plavix. If stent within 1 year may require IV treatment to prevent in-stent thrombosis
[2020-04-27] MEDS ORDERED: MENTHOL/PHENOL 1 EACH UD MM PRN (18:18)
[2020-04-27] MEDS: KCL 10 MEQ IVPB 10 MEQ/100 ML INFUS.BAG IVPB SCH ×3 (18:43→23:11)
--- NOTE | 2020-04-27 20:17 | PN ---
Physical Exam: SUBJECTIVE: Patient seen and examined OBJECTIVE: Vital Signs Period Temp Pulse Resp BP Sys/Christopher Pulse Ox Last 24 Hr 97.8 F-98.9 F 87-105 17-18 111-131/60-71 93-99 GENERAL: The patient is awake, alert, and fully oriented, in no acute distress. HEAD: Normal with no signs of trauma. EYES: PERRL, extraocular movements intact, sclera anicteric, conjunctiva clear. No ptosis. ENT: Ears normal, nares patent, oropharynx clear without exudates, moist mucous membranes. NECK: Trachea midline, full range of motion, supple. LUNGS: Breath sounds equal, clear to auscultation bilaterally, no wheezes, no crackles, no accessory muscle use. HEART: Regular rate and rhythm, S1, S2 without murmur, rub or gallop. ABDOMEN: Soft, nontender, nondistended, normoactive bowel sounds, no guarding, no rebound, no hepatosplenomegaly, no masses. EXTREMITIES: 2+ pulses, warm, well-perfused, no edema. NEUROLOGICAL: Cranial nerves II through XII grossly intact. Normal speech, gait not observed. PSYCH: Normal mood, normal affect. SKIN: Warm, dry, normal turgor, no rashes or lesions noted Laboratory Results - last 24 hr 04/26/20 04/27/20 04/27/20 00:40 07:20 07:20 WBC 3.5 L RBC 3.52 L Hgb 10.4 L Hct 31.5 L MCV 89.4 MCH 29.7 MCHC 33.2 RDW 14.2 Plt Count 184 MPV 8.9 Sodium 134 L Potassium 3.4 L Chloride 96 L Carbon Dioxide 25 Anion Gap 13 BUN 22.1 H Creatinine 0.5 L Est GFR (CKD-EPI)AfAm 113.65 Est GFR (CKD-EPI)NonAf 98.06 Random Glucose 65 L Calcium 9.5 COVID-19 (JULIA) Not detected Active Medications Generic Name Dose Route Start Last Admin Trade Name Freq PRN Reason Stop Dose Admin Eucalyptus/Menthol/Phenol/Sorbitol 1 each 04/27/20 18:18 Cepastat Lozenge - MM Q4H PRN SORE THROAT Metronidazole 500 mg in 100 mls @ 100 mls/hr 04/26/20 10:00 04/27/20 17:23 Flagyl 500mg Premixed Ivpb - IVPB 100 mls/hr Q8H-IV ADELINE Administration Ceftriaxone Sodium 1 gm/ 50 mls @ 200 mls/hr 04/26/20 10:00 04/27/20 10:27 Dextrose IVPB 200 mls/hr DAILY ADELINE Administration Protocol Sodium Chloride 1,000 mls @ 100 mls/hr 04/26/20 14:10 04/27/20 13:58 Normal Saline - IV 100 mls/hr ASDIR ADELINE Administration Morphine Sulfate 2 mg 04/26/20 08:19 Morphine Sulfate IVPUSH Q8H PRN PAIN LEVEL 7 - 10 ASSESSMENT/PLAN: Pt. is a 69 y.o. F w/ PMHx. of MS, sarcoidosis, hypertension, hyperlipidemia, and recent diagnostic colonoscopy on 04/23/2020 presented with small bowel obstruction and mesenteric edema. #Small bowel obstruction N.p.o. with NG tube placed--> still draining bilious contents Surgery on board -GI consult appreciated Continue fluids Continue ceftriaxone, Flagyl Pain control -AXR 04/27/20: SBO -CT A/P: cholelithiasis, RML patchy infiltrates , SBO #Urinary obstruction [place] catheter in place Pending decision by surgical team regarding possible surgical management. If no plans for surgery in near future would recommend trial of void #On Plavix Confirm indication for Plavix. If stent within 1 year may require IV treatment to prevent in-stent thrombosis---> call placed to home x2 without response. -will continue to hold in setting of possible surgery #HTN #HLD #Sarcoidosis hold non-essential home PO medications #FEN NS @ 100 monitor and replete as needed NPO #DVT Ppx. SCDs Visit type - Emergency Visit Emergency Visit: Yes ED Registration Date: 04/25/20 Care time: The patient presented to the Emergency Department on the above date and was hospitalized for further evaluation of their emergent condition. - New Patient This patient is new to me today: Yes Date on this admission: 04/27/20 - Critical Care Critical Care patient: No - Discharge Referral Referred to [facility] Med P.C[facility] No - Medication Review Med list reviewed for High Risk Meds patients 65 and older: Yes ATTENDING PHYSICIAN STATEMENT I saw and evaluated the patient. I reviewed the resident's note and discussed the case with the resident. I agree with the resident's findings and plan as documented. SUBJECTIVE: OBJECTIVE: ASSESSMENT AND PLAN:
[2020-04-28] MEDS: MORPHINE SULFATE 2 MG/ML VIAL IVPUSH PRN ×2 (00:39→22:30)
--- NOTE | 2020-04-28 08:07 | PN.GI ---
GI Progress Note Subjective: patient continue to have no bowl movement or passage of Gas, denies abdominal pain - Objective Vital Signs: Vital Signs Temperature 98.3 F 04/28/20 06:50 Pulse Rate 103 H 04/28/20 06:50 Respiratory Rate 20 04/28/20 06:50 Blood Pressure 129/77 04/28/20 07:28 O2 Sat by Pulse Oximetry (%) 93 L 04/28/20 06:50 Constitutional: Well Nourished HENT: Yes: Atraumatic Neck: Yes: Supple Cardiovascular: Yes: Regular Rate and Rhythm Respiratory: Yes: CTA Bilaterally Gastrointestinal Inspection: Yes: Distention ...Auscultate: Yes: Normoactive Bowel Sounds ...Palpate: Yes: Soft. No: Firm/Rigid, Guarding, Hepatomegaly, Mass, Pulsatile Mass, Splenomegaly Labs: INR, PTT INR 1.06 (0.83-1.09) 04/25/20 19:35 CBC,CMP WBC 3.5 K/mm3 (4.0-10.0) L 04/27/20 07:20 RBC 3.52 M/mm3 (3.60-5.2) L 04/27/20 07:20 Hgb 10.4 GM/dL (10.7-15.3) L 04/27/20 07:20 Hct 31.5 % (32.4-45.2) L 04/27/20 07:20 MCV 89.4 fl (80-96) 04/27/20 07:20 MCH 29.7 pg (25.7-33.7) 04/27/20 07:20 MCHC 33.2 g/dl (32.0-36.0) 04/27/20 07:20 RDW 14.2 % (11.6-15.6) 04/27/20 07:20 Plt Count 184 K/MM3 (134-434) 04/27/20 07:20 MPV 8.9 fl (7.5-11.1) 04/27/20 07:20 Absolute Neuts (auto) 0.7 K/mm3 (1.5-8.0) L 04/26/20 06:20 Neutrophils % 58.3 % (42.8-82.8) 04/26/20 06:20 Neutrophils % (Manual) 29.3 % (42.8-82.8) L 04/26/20 06:20 Band Neutrophils % 29.3 % 04/26/20 06:20 Lymphocytes % 19.4 % (8-40) D 04/26/20 06:20 Lymphocytes % (Manual) 26.3 % (8-40) 04/26/20 06:20 Monocytes % 19.2 % (3.8-10.2) H 04/26/20 06:20 Monocytes % (Manual) 10 % (3.8-10.2) 04/26/20 06:20 Eosinophils % 3.0 % (0-4.5) D 04/26/20 06:20 Eosinophils % (Manual) 3.0 % (0-4.5) 04/26/20 06:20 Basophils % 0.1 % (0-2.0) 04/26/20 06:20 Basophils % (Manual) 0.0 % (0-2.0) 04/26/20 06:20 Myelocytes % (Man) 0 % (0-2) 04/26/20 06:20 Promyelocytes % (Man) 0 % (0-2) 04/26/20 06:20 Blast Cells % (Manual) 0 % (0-0) 04/26/20 06:20 Nucleated RBC % 0 % (0-0) 04/26/20 06:20 Metamyelocytes 0 % (0-2) 04/26/20 06:20 Hypochromia 0 04/26/20 06:20 Platelet Estimate Normal 04/26/20 06:20 Polychromasia 0 04/26/20 06:20 Poikilocytosis 0 04/26/20 06:20 Anisocytosis 1+ 04/26/20 06:20 Microcytosis 1+ 04/26/20 06:20 Macrocytosis 0 04/26/20 06:20 Sodium 134 mmol/L (136-145) L 04/27/20 07:20 Potassium 3.4 mmol/L (3.5-5.1) L 04/27/20 07:20 Chloride 96 mmol/L (98-107) L 04/27/20 07:20 Carbon Dioxide 25 mmol/L (21-32) 04/27/20 07:20 Anion Gap 13 MMOL/L (8-16) 09/14/20 07:20 BUN 22.1 mg/dL (7-18) H 04/27/20 07:20 Creatinine 0.5 mg/dL (0.55-1.3) L 04/27/20 07:20 Est GFR (CKD-EPI)AfAm 113.65 04/27/20 07:20 Est GFR (CKD-EPI)NonAf 98.06 04/27/20 07:20 Random Glucose 65 mg/dL (74-106) L 04/27/20 07:20 Lactic Acid 2.0 mmol/L (0.4-2.0) 04/25/20 19:35 Calcium 9.5 mg/dL (8.5-10.1) 04/27/20 07:20 Phosphorus 3.5 mg/dL (2.5-4.9) 04/26/20 06:20 Magnesium 2.0 mg/dL (1.8-2.4) 04/26/20 06:20 Total Bilirubin 1.1 mg/dL (0.2-1) H 04/25/20 19:35 AST 38 U/L (15-37) H 04/25/20 19:35 ALT 29 U/L (13-61) 04/25/20 19:35 Alkaline Phosphatase 71 U/L (45-117) 04/25/20 19:35 Creatine Kinase 102 U/L (26-192) 04/25/20 19:35 Troponin I < 0.02 ng/ml (0.00-0.05) 04/25/20 19:35 Total Protein 7.5 g/dl (6.4-8.2) 04/25/20 19:35 Albumin 3.8 g/dl (3.4-5.0) 04/25/20 19:35 Problem List - Problems (1) SBO (small bowel obstruction) Assessment/Plan: R> keep NPO await Small bowel series as per surgery Code(s): K56.609 - UNSP INTESTNL OBST, UNSP TO PARTIAL VERSUS COMPLETE OBST
[2020-04-28 08:17] LABS: BASO % 0.2 % (0-2.0); HEMATOCRIT 31.6 % (32.4-45.2); HEMOGLOBIN 10.3 GM/dL (10.7-15.3); LYMPH % 7.8 % (8-40); MCH 29.3 pg (25.7-33.7); MCHC 32.5 g/dl (32.0-36.0); MEAN CELL VOLUME 90.2 fl (80-96); MEAN PLT VOLUME 8.8 fl (7.5-11.1); PLATELET COUNT 176 K/MM3 (134-434); RDW 13.9 % (11.6-15.6); WHITE BLOOD COUNT 4.6 K/mm3 (4.0-10.0)
[2020-04-28 08:31] LABS: BLOOD UREA NITROGEN 17.9 mg/dL (7-18); CALCIUM 8.5 mg/dL (8.5-10.1); CREATININE 0.6 mg/dL (0.55-1.3); PHOSPHOROUS 2.4 mg/dL (2.5-4.9); POTASSIUM 3.7 mmol/L (3.5-5.1)
[2020-04-28] MEDS ORDERED: cefTRIAXone SODIUM 1 GM VIAL ONE (10:22)
[2020-04-28] MEDS ORDERED: DEXTROSE 5%-WATER - 50 ML IVPB ONE (10:22)
[2020-04-28] MEDS: CEFTRIAXONE 1 GM in DEXTROSE 5%-WATER - 50 ML IVPB SCH (10:32)
[2020-04-28] MEDS ORDERED: ACETAMINOPHEN 1000 MG/100 ML VIAL (NON FORMULARY) IVPB PRN (10:43)
--- NOTE | 2020-04-28 10:45 | PN ---
Progress Note (short form) - Note Progress Note: Surgery: Pt states that she isn't having intermitent abd pain. No nausea and not passing flatus/BM, but she does feel the sensation of gas starting. Vital Signs Period Temp Pulse Resp BP Sys/Christopher Pulse Ox Last 24 Hr 97.9 F-98.9 F 89-105 17-20 119-130/63-80 90-99 NGT: 1600ml bilious GEN: A&0x3, NAD ABD: soft, non-distended, non-tender CBC, BMP 04/28/20 07:30 04/28/20 07:30 Laboratory Tests 04/28/20 07:30 Phosphorus 2.4 L A/P: 69 yo female s/p colonscopy as outpt now admitted with abd pain. SBO AXR ordered for todau reveals continue SBO, NGT decompression and repeat films in the am. OOB to chair/PT. IV tylenol for pain as needed, trying to avoid narcotics. K 3.7 and phos 2.4 repleted today with K phos. Repeat BMP ordered for tomorrow. Discontinue ray cath, placed for possible OR. Currently her vitals and uop remain stable. If the OR is needed, may replace cath at time of procedure. D/w Dr. Duong <Olivia Ramírez - Last Filed: 04/28/20 10:52> - Note Progress Note: Attending Surgeon: I personally saw and examined the patient. My examination reveals a patient with an SBO. I discussed the case with the surgical PA and agree with their findings and plan of care with any exceptions as noted. ~ Lucian Duong MD, FACS <Lucian Duong - Last Filed: 04/29/20 19:49>
[2020-04-28] MEDS ORDERED: POTASSIUM PHOSPHATE 15 MM in SODIUM CHLORIDE 250 ML IVPB ONE (11:00)
[2020-04-28] MEDS: AMINO ACIDS 4.25%/D5W 1,000 ML IV SCH ×2 (12:35→22:30)
[2020-04-28 13:09] LABS: ROULEAU 2+
[2020-04-28 13:10] LABS: PLATELET ESTIMATE ADEQUATE
--- NOTE | 2020-04-28 14:45 | PN ---
Teaching Attending Note Name of Resident: Estrella Kunz ATTENDING PHYSICIAN STATEMENT I saw and evaluated the patient. I reviewed the resident's note and discussed the case with the resident. I agree with the resident's findings and plan as documented. SUBJECTIVE: Seen and examined at bedside. KUB still shows high-grade obstruction. Samayoa catheter removed OBJECTIVE Last Vital Signs Temp Pulse Resp BP Pulse Ox 97.6 F 98 H 20 134/73 94 L 04/28/20 14:31 04/28/20 14:31 04/28/20 14:31 04/28/20 14:31 04/28/20 14:31 PE: Per resident note Labs/Imaging: reviewed ASSESSMENT/PLAN 69-year-old female with a history of MS, sarcoidosis, hypertension, hyperlipidemia recent diagnostic colonoscopy on 04/23/2020 presented with small bowel obstruction and mesenteric edema. #Small bowel obstruction N.p.o. with NG tube placed Surgery on board Continue fluids stop ceftriaxone, Flagyl Pain control #Urinary obstruction Samayoa catheter removed. Trial of void #On Plavix Confirm indication for Plavix. If stent within 1 year may require IV treatment to prevent in-stent thrombosis
--- NOTE | 2020-04-28 15:18 | PN ---
Physical Exam: SUBJECTIVE: Patient seen and examined at bedside. No acute events overnight. OBJECTIVE: Vital Signs Period Temp Pulse Resp BP Sys/Christopher Pulse Ox Last 24 Hr 97.6 F-98.9 F 95-105 18-20 119-134/63-80 90-99 GENERAL: Awake, alert, and fully oriented, in no acute distress. HEENT: NC/AT, EOMI, VIVI, anicteric sclera, MMM, NGT in nare without ulceration: 150cc bilious output LUNG: CTA b/l with shallow inspirations, no wheezes or rales CARD: RRR no murmurs ABD: Soft, diffuse mild tenderness, distended with hypoactive BS, no guarding, no rebound. No hernias appreciated. EXT: No edema, no calf tendernes, strong disal pulses SKIN: No rashes or lesions; no ecchymotic areas Laboratory Results - last 24 hr 04/28/20 04/28/20 07:30 07:30 WBC 4.6 RBC 3.50 L Hgb 10.3 L Hct 31.6 L MCV 90.2 MCH 29.3 MCHC 32.5 RDW 13.9 Plt Count 176 MPV 8.8 Absolute Neuts (auto) 2.9 Total Counted 100 Neutrophils % 62.0 Neutrophils % (Manual) 67.0 Band Neutrophils % 5.0 Lymphocytes % 7.8 L D Lymphocytes % (Manual) 10.0 D Monocytes % 28.0 H Monocytes % (Manual) 14 H Eosinophils % 2.0 Eosinophils % (Manual) 2.0 Basophils % 0.2 Basophils % (Manual) 2.0 D Myelocytes % (Man) 1 D Nucleated RBC % 0 Hypochromia 1+ Platelet Estimate Adequate Platelet Comment No clumping noted Poikilocytosis 1+ Acanthocytes (Spur) 1+ Rouleaux 2+ Sodium 137 Potassium 3.7 Chloride 101 Carbon Dioxide 23 Anion Gap 13 BUN 17.9 Creatinine 0.6 Est GFR (CKD-EPI)AfAm 107.03 Est GFR (CKD-EPI)NonAf 92.35 Random Glucose 62 L Calcium 8.5 Phosphorus 2.4 L Magnesium 2.0 Active Medications Generic Name Dose Route Start Last Admin Trade Name Freq PRN Reason Stop Dose Admin Acetaminophen 1,000 mg 04/28/20 10:43 Ofirmev Injection - IVPB Q6H PRN PAIN LEVEL 1-5 Eucalyptus/Menthol/Phenol/Sorbitol 1 each 04/27/20 18:18 04/28/20 12:46 Cepastat Lozenge - MM 1 each Q4H PRN Administration SORE THROAT Potassium Phosphate 15 mm/ 255 mls @ 42 mls/hr 04/28/20 11:00 04/28/20 12:36 Sodium Chloride IVPB 04/28/20 17:04 42 mls/hr ONCE ONE Administration Amino Acids 1,000 mls @ 84 mls/hr 04/28/20 11:45 04/28/20 12:35 Clinimix - IV 84 mls/hr Q12H ADELINE Administration Morphine Sulfate 2 mg 04/26/20 08:19 04/28/20 00:39 Morphine Sulfate IVPUSH 2 mg Q8H PRN Administration PAIN LEVEL 7 - 10 ASSESSMENT/PLAN: 69F w/ pmhx of MS, sarcoidosis, hypertension, hyperlipidemia, and recent diagnostic colonoscopy on 04/23/2020 presented with small bowel obstruction and mesenteric edema. #Small bowel obstruction NPO w/ NG tube placed Surgery on board; will cont to monitor if surgical intervention is needed. Abdominal x-ray ordered for AM. -GI consult appreciated Continue fluids Stop IV abx (s/p Ceftriaxone/Flagyl) Pain control -AXR 04/27/20: SBO -CT A/P: cholelithiasis, RML patchy infiltrates , SBO #Urinary obstruction; Samay[place] catheter removed. TOV, if no output, will get bladder scan and straight cath if needed. #On Plavix Confirm indication for Plavix. If stent within 1 year may require IV treatment to prevent in-stent thrombosis---> call placed to home x2 without response. -will continue to hold in setting of possible surgery #HTN/HLD; Hold home meds. #Sarcoidosis; No acute issues. #FEN -no IVf needed -recheck lytes in AM (K Phos repleted today) -NPO #Prophylaxis DVT: SCDs Dispo -cont to monitor on med-surg Visit type - Emergency Visit Emergency Visit: Yes ED Registration Date: 04/25/20 Care time: The patient presented to the Emergency Department on the above date and was hospitalized for further evaluation of their emergent condition. - New Patient This patient is new to me today: Yes Date on this admission: 04/28/20 - Critical Care Critical Care patient: No - Discharge Referral Referred to [facility] Med P.C.: No - Medication Review Med list reviewed for High Risk Meds patients 65 and older: Yes ATTENDING PHYSICIAN STATEMENT I saw and evaluated the patient. I reviewed the resident's note and discussed the case with the resident. I agree with the resident's findings and plan as documented. SUBJECTIVE: OBJECTIVE: ASSESSMENT AND PLAN:
[2020-04-29] MEDS: AMINO ACIDS 4.25%/D5W 1,000 ML IV SCH ×2 (02:48→13:51)
[2020-04-29 07:59] LABS: HEMATOCRIT 29.9 % (32.4-45.2); HEMOGLOBIN 10.2 GM/dL (10.7-15.3); MEAN CELL VOLUME 88.3 fl (80-96); MEAN PLT VOLUME 8.7 fl (7.5-11.1); PLATELET COUNT 189 K/MM3 (134-434); RBC 3.38 M/mm3 (3.60-5.2); RDW 13.8 % (11.6-15.6); WHITE BLOOD COUNT 4.9 K/mm3 (4.0-10.0)
[2020-04-29] MEDS: MORPHINE SULFATE 2 MG/ML VIAL IVPUSH PRN (08:33)
[2020-04-29 08:47] LABS: BLOOD UREA NITROGEN 15.6 mg/dL (7-18); CALCIUM 8.3 mg/dL (8.5-10.1); CREATININE 0.5 mg/dL (0.55-1.3); MAGNESIUM 1.9 mg/dL (1.8-2.4); PHOSPHOROUS 1.6 mg/dL (2.5-4.9)
--- NOTE | 2020-04-29 12:40 | PN ---
Progress Note (short form) - Note Progress Note: Surgery: Pt states that she isn't having intermitent abd pain. No nausea and not passing flatus/BM. Pt oob to chair today Vital Signs Period Temp Pulse Resp BP Sys/Christopher Pulse Ox Last 24 Hr 97.6 F-99.1 F 82-100 18-20 118-134/63-74 92-95 NGT: 2200ml light bilious GEN: A&0x3, NAD ABD: soft, non-distended, mild mid abd tenderness CBC, BMP 04/29/20 07:30 04/29/20 07:30 Laboratory Tests 04/29/20 07:30 Phosphorus 1.6 L Magnesium 1.9 A/P: 69 yo female s/p colonscopy as outpt now admitted with abd pain. SBO IV tylenol for pain as needed, trying to avoid narcotics. K 3.0 and phos 1.6, spoke with the medical team today for repletion of electrolytes. Follow daily D/w Dr. Duong. Continue ngt daily and ordered Small bowel follow thru. <Olivia Ramírez - Last Filed: 04/29/20 12:43> - Note Progress Note: Attending Surgeon: I personally saw and examined the patient. My examination reveals a patient with an SBO. I discussed the case with the surgical PA and agree with their findings and plan of care with any exceptions as noted. ~ Lucian Duong MD, FACS <Lucian Duong - Last Filed: 04/29/20 19:48>
[2020-04-29] MEDS ORDERED: POTASSIUM PHOSPHATE 15 MM in SODIUM CHLORIDE 250 ML IVPB ONE (13:00)
--- NOTE | 2020-04-29 14:21 | PN ---
Physical Exam: SUBJECTIVE: Patient seen and examined at bedside patient states she is very uncomfortable'; she still has not had a bowel movement she is has a lot of phlegm and she is having slight pain- since the ray was removed yesterday she has not had any issues voiding; she is very anxious. she denies any CP/SOB/N/V OBJECTIVE: Vital Signs Period Temp Pulse Resp BP Sys/Christopher Pulse Ox Last 24 Hr 97.6 F-99.1 F 82-100 18-20 118-134/63-74 92-95 GENERAL: The patient is awake, alert, and fully oriented, in no acute distress. EYES: PEERLA: EOMI no scleral icterus NECK: no JVD; no lymphadenopathy LUNGS: CTA B/L no rales, rhochi or wheezing HEART: Regular rate and rhythm, S1, S2 without murmur, rub or gallop. ABDOMEN: Soft, hypoactive BS; slight tenderness upon palpation; no rebound/guarding EXTREMITIES: 2+ pulses, warm, well-perfused, no edema. NEUROLOGICAL: Cranial nerves II through XII grossly intact. Normal speech, gait not observed. PSYCH: Normal mood, normal affect. SKIN: Warm, dry, normal turgor, no rashes or lesions noted Laboratory Results - last 24 hr 04/29/20 04/29/20 07:30 07:30 WBC 4.9 RBC 3.38 L Hgb 10.2 L Hct 29.9 L MCV 88.3 MCH 30.0 MCHC 34.0 RDW 13.8 Plt Count 189 MPV 8.7 Sodium 135 L Potassium 3.0 L Chloride 98 Carbon Dioxide 29 Anion Gap 8 BUN 15.6 Creatinine 0.5 L Est GFR (CKD-EPI)AfAm 113.65 Est GFR (CKD-EPI)NonAf 98.06 Random Glucose 130 H Calcium 8.3 L Phosphorus 1.6 L Magnesium 1.9 Active Medications Generic Name Dose Route Start Last Admin Trade Name Freq PRN Reason Stop Dose Admin Acetaminophen 1,000 mg 04/28/20 10:43 04/29/20 10:18 Ofirmev Injection - IVPB 1,000 mg Q6H PRN Administration PAIN LEVEL 1-5 Eucalyptus/Menthol/Phenol/Sorbitol 1 each 04/27/20 18:18 04/28/20 12:46 Cepastat Lozenge - MM 1 each Q4H PRN Administration SORE THROAT Amino Acids 1,000 mls @ 84 mls/hr 04/28/20 11:45 04/29/20 13:51 Clinimix - IV 84 mls/hr Q12H ADELINE Administration Potassium Phosphate 15 mm/ 255 mls @ 42.5 mls/hr 04/29/20 13:00 04/29/20 13:51 Sodium Chloride IVPB 04/29/20 18:59 42.5 mls/hr ONCE ONE Administration 15 MM/6 HR Morphine Sulfate 2 mg 04/26/20 08:19 04/29/20 08:33 Morphine Sulfate IVPUSH 2 mg Q8H PRN Administration PAIN LEVEL 7 - 10 ASSESSMENT/PLAN: 1F w/ pmhx of MS, sarcoidosis, hypertension, hyperlipidemia, and recent diagnostic colonoscopy on 04/23/2020 presented with small bowel obstruction and mesenteric edema. #Small bowel obstruction NPO w/ NG tube placed Surgery on board; will cont to monitor if surgical intervention is needed. Abdominal x-ray done today showing BSO with no signs of free air -GI consult appreciated Continue fluids Pain control -AXR 04/27/20: SBO -CT A/P: cholelithiasis, RML patchy infiltrates , SBO -to get a small bowel series tomorrow AM -started on clinimix #Urinary obstruction; Ray catheter removed. TOV, if no output, will get bladder scan and straight cath if needed. #On Plavix Confirm indication for Plavix. If stent within 1 year may require IV treatment to prevent in-stent thrombosis---> call placed to home x2 without response. -will continue to hold in setting of possible surgery #HTN/HLD; Hold home meds. #Sarcoidosis; No acute issues. #FEN -no IVf needed -recheck lytes later this PM; (k and phos repleted) -NPO #Prophylaxis DVT: SCDs Dispo -cont to monitor on med-surg Problem List - Problems (1) SBO (small bowel obstruction) Code(s): K56.609 - UNSP INTESTNL OBST, UNSP TO PARTIAL VERSUS COMPLETE OBST (2) Hip pain Code(s): M25.559 - PAIN IN UNSPECIFIED HIP Visit type - Emergency Visit Emergency Visit: Yes ED Registration Date: 04/25/20 Care time: The patient presented to the Emergency Department on the above date and was hospitalized for further evaluation of their emergent condition. - New Patient This patient is new to me today: Yes Date on this admission: 04/29/20 - Critical Care Critical Care patient: No - Medication Review Med list reviewed for High Risk Meds patients 65 and older: Yes ATTENDING PHYSICIAN STATEMENT I saw and evaluated the patient. I reviewed the resident's note and discussed the case with the resident. I agree with the resident's findings and plan as documented. SUBJECTIVE: OBJECTIVE: ASSESSMENT AND PLAN:
--- NOTE | 2020-04-29 14:37 | PN ---
Teaching Attending Note Name of Resident: Joselyn Szymanski ATTENDING PHYSICIAN STATEMENT I saw and evaluated the patient. I reviewed the resident's note and discussed the case with the resident. I agree with the resident's findings and plan as documented. SUBJECTIVE: Seen and examined at bedside. Potassium and phosphorus low. We will replete. Still obstructed. Patient to have small bowel series tomorrow OBJECTIVE Last Vital Signs Temp Pulse Resp BP Pulse Ox 97.6 F 98 H 20 134/73 94 L 04/28/20 14:31 04/28/20 14:31 04/28/20 14:31 04/28/20 14:31 04/28/20 14:31 PE: Per resident note Labs/Imaging: reviewed ASSESSMENT/PLAN 69-year-old female with a history of MS, sarcoidosis, hypertension, hyperlipidemia recent diagnostic colonoscopy on 04/23/2020 presented with small bowel obstruction and mesenteric edema. #Small bowel obstruction N.p.o. with NG tube placed Surgery on board Continue fluids small bowel series tomorrow Pain control #hypkalemia/hypophosphatemia -aggressively replete given extra losses 2/2 gastric suction #Urinary obstruction Samayoa catheter removed. Trial of void #On Plavix Confirm indication for Plavix. If stent within 1 year may require IV treatment to prevent in-stent thrombosis
[2020-04-29] MEDS ORDERED: PHENOL 177 ML SPRAY BOTTLE MM PRN (14:45)
--- NOTE | 2020-04-29 15:39 | PN.GI ---
GI Progress Note Subjective: Following up 69 yr old F with SBO, NG tube in place to LWS. Pt complains of diffuse abdominal pain. Continues to have no BM or passage of gas. - Objective Vital Signs: Vital Signs Temperature 98.0 F 04/29/20 14:00 Pulse Rate 88 04/29/20 14:00 Respiratory Rate 20 04/29/20 14:00 Blood Pressure 120/73 04/29/20 14:00 O2 Sat by Pulse Oximetry (%) 95 04/29/20 14:00 Constitutional: Well Nourished, Calm HENT: Yes: Atraumatic Neck: Yes: Supple Cardiovascular: Yes: Regular Rate and Rhythm Respiratory: Yes: CTA Bilaterally Gastrointestinal Inspection: No: Distention ...Auscultate: Yes: Hypoactive Bowel Sounds ...Palpate: Yes: Soft, Tenderness (diffuse). No: Firm/Rigid, Guarding, Hepatomegaly, Mass, Splenomegaly Labs: CBC, BMP 04/29/20 07:30 04/29/20 07:30 INR, PTT INR 1.06 (0.83-1.09) 04/25/20 19:35 Problem List - Problems (1) SBO (small bowel obstruction) Assessment/Plan: Keep NPO awaiting small bowel series as per surgery. Code(s): K56.609 - UNSP INTESTNL OBST, UNSP TO PARTIAL VERSUS COMPLETE OBST
--- NOTE | 2020-04-29 18:44 | PN.GI ---
GI Progress Note Subjective: apoke to the patient, and daughter and explained that we will need a second opinion as the patient not clinically better afte 4 days of conservative management. Compared to yesterday she has more abdominal pain - Objective Vital Signs: Vital Signs Temperature 98.5 F 04/29/20 16:20 Pulse Rate 88 04/29/20 16:20 Respiratory Rate 18 04/29/20 16:20 Blood Pressure 128/78 04/29/20 16:20 O2 Sat by Pulse Oximetry (%) 95 04/29/20 14:00 Constitutional: Well Nourished Eyes: Yes: Conjunctiva Clear, Occular Prosthesis Neck: Yes: Trachea Midline Cardiovascular: Yes: Regular Rate and Rhythm Respiratory: Yes: CTA Bilaterally ...Palpate: Yes: Soft, Tenderness (--diffuse). No: Firm/Rigid, Guarding, Hepatomegaly, Pulsatile Mass, Splenomegaly Labs: CBC, BMP 04/29/20 07:30 04/29/20 07:30 INR, PTT INR 1.06 (0.83-1.09) 04/25/20 19:35 Problem List - Problems (1) SBO (small bowel obstruction) Assessment/Plan: will obtain labs R> will await second opinion CBC, lactic acid, ESR,CRP,CMP Code(s): K56.609 - UNSP INTESTNL OBST, UNSP TO PARTIAL VERSUS COMPLETE OBST
--- NOTE | 2020-04-29 19:32 | PN ---
Progress Note (short form) - Note Progress Note: Attending Surgeon Seen in f/u earlier today and concur w/ a/p as outlined by CABRERA Ramírez VSS AF abdo-soft and non tender and minimally distended AXR-sbo IMP: SBO PLAN: Small bowel series which will be dx. and possibly therapeutic; may need ex-lap ; lysis of adhesions; K and phosphorous being repleted. Lucian Duong MD FACS
--- NOTE | 2020-04-29 21:03 | CONSULT ---
Consult Consult Specialty:: surgery Reason for Consultation:: Abdominal pain. second opinion - History of Present Illness Chief Complaint: Abdominal pain History of Present Illness: 69 y/o female who presented to the [facility] ED 04/25/2020 with abdominal pain and fullness. She had a colonoscopy with Dr. Monsalve done on 04/23/2020 as a " f/u". She reports she has been feeling diffuse abdominal pain and fullness since immediately after the procedure and perhaps before. Reports nausea and vomiting. She has not had a bowel movement since 04/22/2020 since the bowel prep. She has not been eating Since admission she has not improved with significant NGT output and no bowel activity Her PSurgical History includes myomectomy and hysterectomy. - Alcohol/Substance Use Hx Alcohol Use: No - Smoking History Smoking history: Never smoked Have you smoked in the past 12 months: No Home Medications - Allergies Allergies/Adverse Reactions: Allergies Allergy/AdvReac Type Severity Reaction Status Date / Time No Known Allergies Allergy Verified 11/16/14 10:13 - Home Medications Home Medications: Ambulatory Orders Alendronate Sodium [Binosto] 70 mg PO DAILY 11/16/14 Clopidogrel Bisulfate [Plavix -] 75 mg PO DAILY 11/16/14 Pramipexole Di-HCl [Mirapex] 0.125 mg PO BID 11/16/14 Simvastatin [Zocor -] 20 mg PO DAILY 11/16/14 Irbesartan [Avapro] 150 mg PO DAILY 04/25/20 Ondansetron [Zofran *Odt*] 4 mg SL TID PRN 04/25/20 Pantoprazole Sodium [Protonix -] 40 mg PO DAILY 04/25/20 Spironolactone [Aldactone] 25 mg PO DAILY 04/25/20 Physical Exam Vital Signs: Vital Signs Temperature 98.9 F 04/29/20 20:12 Pulse Rate 96 H 04/29/20 20:12 Respiratory Rate 20 04/29/20 20:12 Blood Pressure 136/66 04/29/20 20:12 O2 Sat by Pulse Oximetry (%) 93 L 04/29/20 20:12 Labs: CBC, BMP 04/29/20 07:30 04/29/20 07:30 Imaging - Results X-ray: Report Reviewed, Image Reviewed Cat Scan: Report Reviewed, Image Reviewed Problem List - Problems (1) SBO (small bowel obstruction) Code(s): K56.609 - UNSP INTESTNL OBST, UNSP TO PARTIAL VERSUS COMPLETE OBST Assessment/Plan 69 you old female with Acute SBO Hospital Day 4 not improving to conservative management with NGT decompression, hydration. Recommendations Exploratory laparotomy for lysis of adhesions , most likely cause of SBO. Discussed with patient and She is currently hemodynamically stable with no peritoneal signs and think this can be done safely in am unless she clinically changes overnight.
[2020-04-29 22:03] LABS: HEMATOCRIT 31.1 % (32.4-45.2); HEMOGLOBIN 10.3 GM/dL (10.7-15.3); MCH 29.2 pg (25.7-33.7); MCHC 33.2 g/dl (32.0-36.0); MEAN CELL VOLUME 88.2 fl (80-96); MEAN PLT VOLUME 8.8 fl (7.5-11.1); PLATELET COUNT 218 K/MM3 (134-434); RBC 3.53 M/mm3 (3.60-5.2); RDW 13.8 % (11.6-15.6); WHITE BLOOD COUNT 5.8 K/mm3 (4.0-10.0)
[2020-04-29 22:18] LABS: INR 1.13 (0.83-1.09); PROTHROMBIN TIME (PATIENT) 13.4 SEC (9.7-13.0)
[2020-04-29 22:27] LABS: BLOOD UREA NITROGEN 13.2 mg/dL (7-18); CALCIUM 8.7 mg/dL (8.5-10.1); CREATININE 0.4 mg/dL (0.55-1.3); POTASSIUM 3.4 mmol/L (3.5-5.1)
[2020-04-30] MEDS: MORPHINE SULFATE 2 MG/ML VIAL IVPUSH PRN (02:00)
[2020-04-30] MEDS: AMINO ACIDS 4.25%/D5W 1,000 ML IV SCH ×3 (06:15→23:59)
[2020-04-30 08:20] LABS: BASO % 0.3 % (0-2.0); EOS % 2.2 % (0-4.5); HEMATOCRIT 32.2 % (32.4-45.2); HEMOGLOBIN 10.6 GM/dL (10.7-15.3); LYMPH % 11.3 % (8-40); MCH 29.3 pg (25.7-33.7); MEAN CELL VOLUME 88.8 fl (80-96); MEAN PLT VOLUME 8.8 fl (7.5-11.1); MONO % 19.4 % (3.8-10.2); NEUT % 66.8 % (42.8-82.8); PLATELET COUNT 235 K/MM3 (134-434); RBC 3.63 M/mm3 (3.60-5.2); RDW 13.8 % (11.6-15.6); WHITE BLOOD COUNT 6.1 K/mm3 (4.0-10.0)
[2020-04-30 08:43] LABS: POTASSIUM 3.2 mmol/L (3.5-5.1)
[2020-04-30 09:27] LABS: ALBUMIN 3.2 g/dl (3.4-5.0); BILIRUBIN,TOTAL 0.7 mg/dL (0.2-1); BLOOD UREA NITROGEN 13.2 mg/dL (7-18); CALCIUM 9.4 mg/dL (8.5-10.1); CREATININE 0.4 mg/dL (0.55-1.3); MAGNESIUM 2.1 mg/dL (1.8-2.4); PHOSPHOROUS 2.8 mg/dL (2.5-4.9); TOT PROT 6.6 g/dl (6.4-8.2)
[2020-04-30] MEDS ORDERED: PT OWN MED DRAWER 7, Y5N ONE (10:15)
[2020-04-30] MEDS: KCL 10 MEQ IVPB 10 MEQ/100 ML INFUS.BAG IVPB SCH ×4 (10:28→18:00)
[2020-04-30] MEDS ORDERED: fentaNYL CITRATE 250 MCG/5 ML VIAL ONE (12:56)
--- NOTE | 2020-04-30 12:58 | PN ---
Physical Exam: SUBJECTIVE: Patient seen and examined at bedside; no acute events overnight; patient going to the OR this morning for Ex-lap OBJECTIVE: Vital Signs Period Temp Pulse Resp BP Sys/Christopher Pulse Ox Last 24 Hr 98.0 F-98.9 F 88-96 18-20 114-136/64-78 91-98 GENERAL: The patient is awake, alert, and fully oriented, in no acute distress. EYES: PEERLA: EOMI no scleral icterus NECK: no JVD; no lymphadenopathy LUNGS: CTA B/L no rales, rhonchi or wheezing. HEART: Regular rate and rhythm, S1, S2 without murmur, rub or gallop. ABDOMEN: Soft, slight tenderness upon palpation; minimal BS EXTREMITIES: 2+ pulses, warm, well-perfused, no edema. PSYCH: Normal mood, normal affect. SKIN: Warm, dry, normal turgor, no rashes or lesions noted Laboratory Results - last 24 hr 04/29/20 04/29/20 04/29/20 20:05 20:05 20:05 WBC 5.8 RBC 3.53 L Hgb 10.3 L Hct 31.1 L MCV 88.2 MCH 29.2 MCHC 33.2 RDW 13.8 Plt Count 218 MPV 8.8 Absolute Neuts (auto) Neutrophils % Lymphocytes % Monocytes % Eosinophils % Basophils % Nucleated RBC % PT with INR INR Sodium 134 L Potassium 3.4 L Chloride 96 L Carbon Dioxide 31 Anion Gap 7 L BUN 13.2 Creatinine 0.4 L Est GFR (CKD-EPI)AfAm 122.31 Est GFR (CKD-EPI)NonAf 105.53 Random Glucose 79 Lactic Acid 1.2 Calcium 8.7 Phosphorus 3.0 Magnesium Total Bilirubin AST ALT Alkaline Phosphatase Total Protein Albumin Blood Type Antibody Screen 04/29/20 04/30/20 04/30/20 20:05 07:19 07:19 WBC 6.1 RBC 3.63 Hgb 10.6 L Hct 32.2 L MCV 88.8 MCH 29.3 MCHC 33.0 RDW 13.8 Plt Count 235 MPV 8.8 Absolute Neuts (auto) 4.1 Neutrophils % 66.8 Lymphocytes % 11.3 D Monocytes % 19.4 H Eosinophils % 2.2 Basophils % 0.3 Nucleated RBC % 0 PT with INR 13.40 H INR 1.13 H Sodium 135 L Potassium 3.2 L Chloride 95 L Carbon Dioxide 31 Anion Gap 9 BUN 13.2 Creatinine 0.4 L Est GFR (CKD-EPI)AfAm 122.31 Est GFR (CKD-EPI)NonAf 105.53 Random Glucose 76 Lactic Acid Calcium 9.4 Phosphorus 2.8 Magnesium 2.1 Total Bilirubin 0.7 AST 28 ALT 21 Alkaline Phosphatase 69 Total Protein 6.6 Albumin 3.2 L Blood Type Antibody Screen 04/30/20 10:00 WBC RBC Hgb Hct MCV MCH MCHC RDW Plt Count MPV Absolute Neuts (auto) Neutrophils % Lymphocytes % Monocytes % Eosinophils % Basophils % Nucleated RBC % PT with INR INR Sodium Potassium Chloride Carbon Dioxide Anion Gap BUN Creatinine Est GFR (CKD-EPI)AfAm Est GFR (CKD-EPI)NonAf Random Glucose Lactic Acid Calcium Phosphorus Magnesium Total Bilirubin AST ALT Alkaline Phosphatase Total Protein Albumin Blood Type O POSITIVE Antibody Screen Negative Active Medications Generic Name Dose Route Start Last Admin Trade Name Freq PRN Reason Stop Dose Admin Acetaminophen 1,000 mg 04/28/20 10:43 04/29/20 10:18 Ofirmev Injection - IVPB 1,000 mg Q6H PRN Administration PAIN LEVEL 1-5 Eucalyptus/Menthol/Phenol/Sorbitol 1 each 04/27/20 18:18 04/28/20 12:46 Cepastat Lozenge - MM 1 each Q4H PRN Administration SORE THROAT Amino Acids 1,000 mls @ 84 mls/hr 04/28/20 11:45 04/30/20 10:58 Clinimix - IV Not Given Q12H ADELINE Morphine Sulfate 2 mg 04/26/20 08:19 04/30/20 02:00 Morphine Sulfate IVPUSH 2 mg Q8H PRN Administration PAIN LEVEL 7 - 10 Phenol/Menthol 1 spray 04/29/20 14:45 Chloraseptic - MM Q6HPO PRN SORE THROAT ASSESSMENT/PLAN: 1F w/ pmhx of MS, sarcoidosis, hypertension, hyperlipidemia, and recent diagnostic colonoscopy on 04/23/2020 presented with small bowel obstruction and mesenteric edema. #Small bowel obstruction NPO w/ NG tube placed Surgery on board; going to OR today for ex-lap -GI consult appreciated Continue fluids Pain control -AXR 04/27/20: SBO -CT A/P: cholelithiasis, RML patchy infiltrates , SBO -started on clinimix #Urinary obstruction; Samay[place] catheter removed. urinating fine- no issues #On Plavix Confirm indication for Plavix. If stent within 1 year may require IV treatment to prevent in-stent thrombosis---> call placed to home x2 without response. -will continue to hold in setting of possible surgery #HTN/HLD; Hold home meds. #Sarcoidosis; No acute issues. #FEN -no IVf needed -recheck lytes later this PM; (k and phos repleted) -NPO #Prophylaxis DVT: SCDs Dispo -cont to monitor on med-surg Problem List - Problems (1) SBO (small bowel obstruction) Code(s): K56.609 - UNSP INTESTNL OBST, UNSP TO PARTIAL VERSUS COMPLETE OBST (2) Hip pain Code(s): M25.559 - PAIN IN UNSPECIFIED HIP Visit type - Emergency Visit Emergency Visit: Yes ED Registration Date: 04/25/20 Care time: The patient presented to the Emergency Department on the above date and was hospitalized for further evaluation of their emergent condition. - New Patient This patient is new to me today: No - Critical Care Critical Care patient: No - Medication Review Med list reviewed for High Risk Meds patients 65 and older: Yes ATTENDING PHYSICIAN STATEMENT I saw and evaluated the patient. I reviewed the resident's note and discussed the case with the resident. I agree with the resident's findings and plan as documented. SUBJECTIVE: OBJECTIVE: ASSESSMENT AND PLAN:
[2020-04-30] MEDS ORDERED: ceFAZolin SODIUM 1 GM VIAL IVPB ONE (13:53)
[2020-04-30] MEDS ORDERED: DEXAMETHASONE SOD PHOSPHATE/PF 10 MG/ML SDV ONE (14:42)
--- NOTE | 2020-04-30 14:46 | PN ---
Teaching Attending Note Name of Resident: Joselyn Szymanski ATTENDING PHYSICIAN STATEMENT I saw and evaluated the patient. I reviewed the resident's note and discussed the case with the resident. I agree with the resident's findings and plan as documented. SUBJECTIVE: OBJECTIVE: ASSESSMENT AND PLAN: 69 year old female with a PMHx notable for Multiple Sclerosis, sarcoidosis, hypertension, hyperlipidemia, and recent diagnostic colonoscopy on 04/23/2020 who presents with small bowel obstruction and mesenteric edema. #Small bowel obstruction - To OR today for exp-lap -started on clinimix - on plavix for unclear indication hold for surgery #HTN/HLD; Hold home oral meds. #Sarcoidosis; No acute issues.
[2020-04-30] MEDS ORDERED: NEOSTIGMINE METHYLSULFATE 0.5 MG/ML - 10 ML MDV ONE (14:58)
--- NOTE | 2020-04-30 15:19 | PN ---
Progress Note (short form) - Note Progress Note: CAME TO SEE PATIENT. She was in OR for exploratory laparatomy. Problem List - Problems (1) SBO (small bowel obstruction) Code(s): K56.609 - UNSP INTESTNL OBST, UNSP TO PARTIAL VERSUS COMPLETE OBST
[2020-04-30] MEDS ORDERED: ONDANSETRON 4 MG/2 ML VIAL IVPUSH PRN ×2 (15:25→16:19)
[2020-04-30] MEDS ORDERED: HYDROmorphone HCl 2 MG/ML VIAL IVPB PRN ×2 (15:27→16:19)
[2020-04-30] MEDS ORDERED: LACTATED RINGERS SOLUTION 1,000 ML IV SCH ×2 (15:30→16:19)
[2020-04-30] MEDS ORDERED: ACETAMINOPHEN 1000 MG/100 ML VIAL (NON FORMULARY) IVPB SCH ×2 (15:30→21:30)
[2020-04-30] MEDS ORDERED: BISACODYL 10 MG SUPP.RECT PR ONE (15:33)
--- NOTE | 2020-04-30 15:44 | OP ---
Operative Note - Note: Operative Date: 04/30/20 Pre-Operative Diagnosis: small bowel obstruction Operation: laparotomy and repair of internal hernia Findings: internal hernia; viable bowel Surgeon: Lucian Duong Sheep Or Calf Grader: Olivia Ramírez Anesthesiologist/WOOD HEEL CEMENTER: Jil Lay Anesthesia: General Specimens Removed: none Estimated Blood Loss (mls): 20
[2020-04-30] MEDS ORDERED: MENTHOL/PHENOL 1 EACH UD MM PRN ×2 (16:19→17:02)
[2020-04-30] MEDS ORDERED: PHENOL 177 ML SPRAY BOTTLE MM PRN ×2 (16:19→17:02)
--- NOTE | 2020-04-30 17:01 | SURG ---
Surgery Men'S Swim Coach Note Men'S Swim Coach: Olivia Ramírez PA-C Date of Service: 04/30/20 Diagnosis: small bowel obstruction Procedure: laparotomy and repair of internal hernia I was present for the entirety of the operative procedure. For further detail, please refer to operative report.
[2020-04-30] MEDS: HYDROmorphone HCl 2 MG/ML VIAL IVPB PRN (18:27)
[2020-04-30 22:25] LABS: BLOOD UREA NITROGEN 15.9 mg/dL (7-18); CALCIUM 8.2 mg/dL (8.5-10.1); CREATININE 0.5 mg/dL (0.55-1.3); POTASSIUM 3.9 mmol/L (3.5-5.1)
[2020-04-30] MEDS: ACETAMINOPHEN 1000 MG/100 ML VIAL (NON FORMULARY) IVPB SCH (23:13)
[2020-04-30] MEDS ORDERED: AMINO ACIDS 4.25%/D5W 1,000 ML IV SCH (23:45)
[2020-05-01] MEDS: ACETAMINOPHEN 1000 MG/100 ML VIAL (NON FORMULARY) IVPB SCH ×2 (05:14→11:47)
[2020-05-01] MEDS ORDERED: ONDANSETRON 4 MG/2 ML VIAL IVPUSH PRN (05:36)
[2020-05-01] MEDS: HYDROmorphone HCl 2 MG/ML VIAL IVPB PRN ×3 (06:06→22:55)
--- NOTE | 2020-05-01 07:12 | PN ---
Teaching Attending Note Name of Resident: Crystal Mancia ATTENDING PHYSICIAN STATEMENT I saw and evaluated the patient. I reviewed the resident's note and discussed the case with the resident. I agree with the resident's findings and plan as documented. SUBJECTIVE: Pt unable to sleep well last night with discomfort due to abdominal surgery and NGT. Otherwise no complaints. No flatus or BM. Otherwise no other acute events. OBJECTIVE: Vital Signs Temperature 98.7 F 05/01/20 06:00 Pulse Rate 90 05/01/20 06:00 Respiratory Rate 20 05/01/20 06:00 Blood Pressure 103/62 05/01/20 06:00 O2 Sat by Pulse Oximetry (%) 94 L 05/01/20 06:00 PE: Gen: NAD, awake, alert, oriented HEENT: NC/AT, NGT R nare with 200cc bilious drainage, MMM LUNG: CTA b/l without wheezes or rales CARD: RRR no murmurs ABD: Soft, nondistendend, mild tenderness around surgical site, surgical bandage without drainage, no guarding, no rebound EXT: No edema, no calf tenderness, strong distal pulses Active Medications Acetaminophen (Ofirmev Injection -) 1,000 mg IVPB Q6H ADELINE Stop: 05/01/20 11:31 Last Admin: 05/01/20 05:14 Dose: 1,000 mg Documented by: Eucalyptus/Menthol/Phenol/Sorbitol (Cepastat Lozenge -) 1 each MM Q4H PRN PRN Reason: SORE THROAT Hydromorphone HCl (Dilaudid Vial -) 0.5 mg IVPB Q4H PRN PRN Reason: PAIN LEVEL 1-5 Last Admin: 05/01/20 06:06 Dose: 0.5 mg Documented by: Amino Acids (Clinimix -) 1,000 mls @ 84 mls/hr IV Q12H ADELINE Last Admin: 04/30/20 23:59 Dose: 84 mls/hr Documented by: Pantoprazole Sodium (Protonix Iv) 40 mg IVPUSH DAILY [facility] Phenol/Menthol (Chloraseptic -) 1 spray MM Q6HPO PRN PRN Reason: SORE THROAT Microbiology 04/26/20 00:30 Urine - Urine Clean Catch Urine Culture - Final NO GROWTH OBTAINED Assessment and Plan: POD 1 Ex-lap with reduction of internal hernia Small bowel obstruction Cholelithiasis CAD Hyponatremia Hypophosphatemia History of HTN History of MS --Monitor post-operatively after successful internal hernia reduction --Surgery and GI on board; appreciate recommendations --Pain control; will adjust regimen for severe and moderate pain post procedure --Holding all nonessential PO medications due to above --Monitor hyponatremia especially with Clinimix formulation on board. Would hold if <130 as patient is hyponatremic chronically --Replete electrolytes Dispo: Monitor M/S DO Malgorzata Carranza
[2020-05-01] MEDS: PANTOPRAZOLE SODIUM 40 MG VIAL IVPUSH SCH (09:24)
[2020-05-01 09:27] LABS: ALBUMIN 2.8 g/dl (3.4-5.0); BILIRUBIN,TOTAL 0.6 mg/dL (0.2-1); BLOOD UREA NITROGEN 16.1 mg/dL (7-18); CALCIUM 8.3 mg/dL (8.5-10.1); CREATININE 0.5 mg/dL (0.55-1.3); MAGNESIUM 1.7 mg/dL (1.8-2.4); PHOSPHOROUS 1.7 mg/dL (2.5-4.9); TOT PROT 5.9 g/dl (6.4-8.2)
[2020-05-01 09:36] LABS: BASO % 0.1 % (0-2.0); HEMATOCRIT 30.8 % (32.4-45.2); HEMOGLOBIN 10.3 GM/dL (10.7-15.3); LYMPH % 3.5 % (8-40); MCH 29.4 pg (25.7-33.7); MCHC 33.3 g/dl (32.0-36.0); MEAN CELL VOLUME 88.2 fl (80-96); MEAN PLT VOLUME 8.5 fl (7.5-11.1); MONO % 14.4 % (3.8-10.2); PLATELET COUNT 243 K/MM3 (134-434); RBC 3.49 M/mm3 (3.60-5.2); RDW 13.8 % (11.6-15.6)
[2020-05-01] MEDS ORDERED: ACETAMINOPHEN 1000 MG/100 ML VIAL (NON FORMULARY) IVPB PRN (11:39)
--- NOTE | 2020-05-01 11:59 | PN ---
Progress Note (short form) - Note Progress Note: Attending Surgeon POD #1 c/o pain VSS AF abdo-dressing c/d/i; incisional tenderness; non distended; o/w negative calves-soft; non tender labs noted; Phos low NGT 2000 then 200 IMP: stable POD3 PLAN: D/c ray/OOB/continue NGT to LCWS; replete phos
[2020-05-01] MEDS ORDERED: POTASSIUM PHOSPHATE 15 MM in DEXTROSE 5%-WATER - 250 ML IVPB ONE (13:00)
[2020-05-01] MEDS: AMINO ACIDS 4.25%/D5W 1,000 ML IV SCH (13:24)
--- NOTE | 2020-05-01 16:15 | PN ---
Physical Exam: SUBJECTIVE: Patient seen and examined this AM. No new complaints but has not passed flatus yet. OBJECTIVE: Vital Signs Period Temp Pulse Resp BP Sys/Christopher Pulse Ox Last 24 Hr 97.4 F-98.7 F 88-106 12-20 103-150/62-94 94-99 GENERAL: A&Ox3, NAD EYES: EOMI ENT: moist mucous membranes NECK: Supple, no JVD LUNGS: CTA B/L no wheezing HEART: Regular rate and rhythm, S1, S2 without murmur ABDOMEN: Soft, mild diffuse tenderness to palpation, Hypoactive BS EXTREMITIES: no edema SKIN: Warm, dry Laboratory Last Values WBC 10.0 K/mm3 (4.0-10.0) 05/01/20 09:05 RBC 3.49 M/mm3 (3.60-5.2) L 05/01/20 09:05 Hgb 10.3 GM/dL (10.7-15.3) L 05/01/20 09:05 Hct 30.8 % (32.4-45.2) L 05/01/20 09:05 MCV 88.2 fl (80-96) 05/01/20 09:05 MCH 29.4 pg (25.7-33.7) 05/01/20 09:05 MCHC 33.3 g/dl (32.0-36.0) 05/01/20 09:05 RDW 13.8 % (11.6-15.6) 05/01/20 09:05 Plt Count 243 K/MM3 (134-434) 05/01/20 09:05 MPV 8.5 fl (7.5-11.1) 05/01/20 09:05 Absolute Neuts (auto) 8.2 K/mm3 (1.5-8.0) H 05/01/20 09:05 Total Counted 100 04/28/20 07:30 Neutrophils % 82.0 % (42.8-82.8) D 05/01/20 09:05 Neutrophils % (Manual) 67.0 % (42.8-82.8) 04/28/20 07:30 Band Neutrophils % 5.0 % 04/28/20 07:30 Lymphocytes % 3.5 % (8-40) L D 05/01/20 09:05 Lymphocytes % (Manual) 10.0 % (8-40) D 04/28/20 07:30 Monocytes % 14.4 % (3.8-10.2) H 05/01/20 09:05 Monocytes % (Manual) 14 % (3.8-10.2) H 04/28/20 07:30 Eosinophils % 0.0 % (0-4.5) D 05/01/20 09:05 Eosinophils % (Manual) 2.0 % (0-4.5) 04/28/20 07:30 Basophils % 0.1 % (0-2.0) 05/01/20 09:05 Basophils % (Manual) 2.0 % (0-2.0) D 04/28/20 07:30 Myelocytes % (Man) 1 % (0-2) D 04/28/20 07:30 Promyelocytes % (Man) 0 % (0-2) 04/26/20 06:20 Blast Cells % (Manual) 0 % (0-0) 04/26/20 06:20 Nucleated RBC % 0 % (0-0) 05/01/20 09:05 Metamyelocytes 0 % (0-2) 04/26/20 06:20 Hypochromia 1+ 04/28/20 07:30 Platelet Estimate Adequate 04/28/20 07:30 Platelet Comment No clumping noted 04/28/20 07:30 Polychromasia 0 04/26/20 06:20 Poikilocytosis 1+ 04/28/20 07:30 Anisocytosis 1+ 04/26/20 06:20 Microcytosis 1+ 04/26/20 06:20 Macrocytosis 0 04/26/20 06:20 Acanthocytes (Spur) 1+ 04/28/20 07:30 Rouleaux 2+ 04/28/20 07:30 PT with INR 13.40 SEC (9.7-13.0) H 04/29/20 20:05 INR 1.13 (0.83-1.09) H 04/29/20 20:05 PTT (Actin FS) 27.6 SECONDS (25.2-36.5) 04/25/20 19:35 Sodium 131 mmol/L (136-145) L 05/01/20 Unknown Potassium 4.0 mmol/L (3.5-5.1) 05/01/20 Unknown Chloride 96 mmol/L (98-107) L 05/01/20 Unknown Carbon Dioxide 27 mmol/L (21-32) 05/01/20 Unknown Anion Gap 9 MMOL/L (8-16) 05/01/20 Unknown BUN 16.1 mg/dL (7-18) 05/01/20 Unknown Creatinine 0.5 mg/dL (0.55-1.3) L 05/01/20 Unknown Est GFR (CKD-EPI)AfAm 113.65 05/01/20 Unknown Est GFR (CKD-EPI)NonAf 98.06 05/01/20 Unknown POC Glucometer 88 UNITS (80-120) 04/30/20 15:43 Random Glucose 153 mg/dL (74-106) H 05/01/20 Unknown Lactic Acid 1.2 mmol/L (0.4-2.0) 04/29/20 20:05 Calcium 8.3 mg/dL (8.5-10.1) L 05/01/20 Unknown Phosphorus 1.7 mg/dL (2.5-4.9) L 05/01/20 Unknown Magnesium 1.7 mg/dL (1.8-2.4) L 05/01/20 Unknown Total Bilirubin 0.6 mg/dL (0.2-1) 05/01/20 Unknown AST 47 U/L (15-37) H 05/01/20 Unknown ALT 33 U/L (13-61) 05/01/20 Unknown Alkaline Phosphatase 70 U/L (45-117) 05/01/20 Unknown Creatine Kinase 102 U/L (26-192) 04/25/20 19:35 Troponin I < 0.02 ng/ml (0.00-0.05) 04/25/20 19:35 Total Protein 5.9 g/dl (6.4-8.2) L 05/01/20 Unknown Albumin 2.8 g/dl (3.4-5.0) L 05/01/20 Unknown Urine Color Dk yellow 04/26/20 00:30 Urine Appearance Cloudy 04/26/20 00:30 Urine pH 5.0 (5.0-8.0) 04/26/20 00:30 Ur Specific [place] 1.034 (1.010-1.035) 04/26/20 00:30 Urine Protein Trace (NEGATIVE) 04/26/20 00:30 Urine Glucose (UA) Negative (NEGATIVE) 04/26/20 00:30 Urine Ketones Trace (NEGATIVE) H 04/26/20 00:30 Urine Blood Negative (NEGATIVE) 04/26/20 00:30 Urine Nitrite Negative (NEGATIVE) 04/26/20 00:30 Urine Bilirubin Negative (NEGATIVE) 04/26/20 00:30 Urine Urobilinogen 1.0 mg/dL (0.2-1.0) 04/26/20 00:30 Ur Leukocyte Esterase Negative (NEGATIVE) 04/26/20 00:30 COVID-19 (JULIA) Not detected (Not Detected) 04/26/20 00:40 Blood Type O POSITIVE 04/30/20 10:00 Antibody Screen Negative 04/30/20 10:00 Crossmatch See Detail 04/30/20 10:00 Microbiology 04/26/20 00:30 Urine - Urine Clean Catch Urine Culture - Final NO GROWTH OBTAINED Active Medications Acetaminophen (Ofirmev Injection -) 1,000 mg IVPB Q6H PRN PRN Reason: PAIN LEVEL 1-3 Stop: 05/02/20 11:39 Eucalyptus/Menthol/Phenol/Sorbitol (Cepastat Lozenge -) 1 each MM Q4H PRN PRN Reason: SORE THROAT Hydromorphone HCl (Dilaudid Vial -) 0.5 mg IVPB Q4H PRN PRN Reason: PAIN LEVEL 7-10 Last Admin: 05/01/20 06:06 Dose: 0.5 mg Documented by: Amino Acids (Clinimix -) 1,000 mls @ 84 mls/hr IV Q12H [facility] Last Admin: 05/01/20 13:24 Dose: 84 mls/hr Documented by: Potassium Phosphate 15 mm/ (Dextrose) 255 mls @ 42.5 mls/hr IVPB ONCE ONE Stop: 05/01/20 18:59 Last Admin: 05/01/20 13:25 Dose: 42.5 mls/hr Documented by: Ketorolac Tromethamine (Toradol Injection -) 30 mg IVPUSH Q8H-IV PRN PRN Reason: PAIN LEVEL 4-6 Stop: 05/06/20 17:59 Pantoprazole Sodium (Protonix Iv) 40 mg IVPUSH DAILY [facility] Last Admin: 05/01/20 09:24 Dose: 40 mg Documented by: Phenol/Menthol (Chloraseptic -) 1 spray MM Q6HPO PRN PRN Reason: SORE THROAT ASSESSMENT/PLAN: 69F w/ PMHx MS, sarcoidosis, HTN, HLD, recent diagnostic colonoscopy on 04/23/2020 presented with SBO and mesenteric edema. #Small bowel obstruction -Now POD#1 s/p ExLap with reduction internal hernia NPO w/ NGT placed Surgery consulted, appreciate rec's -GI consult appreciated -Analgesia -IV Hydration -Clinimix #HTN/HLD; Hold home meds, Resume when BP is above goal #Sarcoidosis; No acute issues. #FEN -No Standing fluids -Replete Lytes PRN -NPO #Prophylaxis DVT: SCDs Dispo -cont to monitor on med-surg Visit type - Emergency Visit Emergency Visit: Yes ED Registration Date: 04/25/20 Care time: The patient presented to the Emergency Department on the above date and was hospitalized for further evaluation of their emergent condition. - New Patient This patient is new to me today: Yes Date on this admission: 05/01/20 - Critical Care Critical Care patient: No - Discharge Referral Referred to [facility] Med [facility].C[facility] No - Medication Review Med list reviewed for High Risk Meds patients 65 and older: Yes ATTENDING PHYSICIAN STATEMENT I saw and evaluated the patient. I reviewed the resident's note and discussed the case with the resident. I agree with the resident's findings and plan as documented. SUBJECTIVE: OBJECTIVE: ASSESSMENT AND PLAN:
--- NOTE | 2020-05-01 19:04 | PN ---
GI Progress Note Subjective: s/p explore lap day 1, no flatus, NGT - Objective Vital Signs: Vital Signs Temperature 99.2 F 05/01/20 17:44 Pulse Rate 109 H 05/01/20 17:44 Respiratory Rate 05/01/20 17:44 Blood Pressure 108/73 05/01/20 17:44 O2 Sat by Pulse Oximetry (%) 99 05/01/20 17:44 Constitutional: Well Nourished, Poor Hygeine Eyes: Yes: Occular Prosthesis HENT: Yes: Tonsillar Exudate Cardiovascular: Yes: Regular Rate and Rhythm Respiratory: Yes: CTA Bilaterally ...Palpate: Yes: Soft. No: Firm/Rigid, Guarding, Hepatomegaly, Mass, Pulsatile Mass, Splenomegaly, Tenderness Labs: CBC, BMP 05/01/20 09:05 05/01/20 Unknown INR, PTT INR 1.13 (0.83-1.09) H 04/29/20 20:05 Problem List - Problems (1) SBO (small bowel obstruction) Assessment/Plan: s/p explore lap R> IV hydration correct electrolytes Code(s): K56.609 - UNSP INTESTNL OBST, UNSP TO PARTIAL VERSUS COMPLETE OBST
[2020-05-02] MEDS: AMINO ACIDS 4.25%/D5W 1,000 ML IV SCH ×4 (03:40→23:51)
[2020-05-02 07:49] LABS: BASO % 0.2 % (0-2.0); EOS % 1.4 % (0-4.5); HEMATOCRIT 27.6 % (32.4-45.2); HEMOGLOBIN 9.1 GM/dL (10.7-15.3); LYMPH % 8.4 % (8-40); MCH 29.8 pg (25.7-33.7); MCHC 32.9 g/dl (32.0-36.0); MEAN CELL VOLUME 90.3 fl (80-96); MEAN PLT VOLUME 8.4 fl (7.5-11.1); MONO % 18.2 % (3.8-10.2); NEUT % 71.8 % (42.8-82.8); PLATELET COUNT 207 K/MM3 (134-434); RBC 3.05 M/mm3 (3.60-5.2); RDW 14.1 % (11.6-15.6); WHITE BLOOD COUNT 7.3 K/mm3 (4.0-10.0)
[2020-05-02] MEDS: PANTOPRAZOLE SODIUM 40 MG VIAL IVPUSH SCH (09:59)
[2020-05-02] MEDS ORDERED: PT OWN MED DRAWER 7, Y5N ONE (10:07)
[2020-05-02] MEDS: POTASSIUM PHOSPHATE 30 MM in SODIUM CHLORIDE 500 ML IVPB SCH ×2 (10:13→18:35)
--- NOTE | 2020-05-02 11:00 | PN ---
Progress Note (short form) - Note Progress Note: Attending Surgeon POD #2 Less c/o pain; no flatus/no bowel movement VSS AF abdo-incision and dressing c/d/i; less incisional tenderness; non distended; o/w negative calves-soft; non tender labs noted; Phos low/K low/Mg low; WBC normal NGT 400 IMP: stable POD2 PLAN: D/c ray/OOB/continue NGT to WS; replete phos and magnesium and potassium Lucian Duong MD FACS
--- NOTE | 2020-05-02 12:55 | PN ---
Progress Note (short form) - Note Progress Note: SUBJECTIVE: Seen and examined at bedside. Potassium and phosphorus low. We will replete. Patient failed trial of void overnight x2. Will consult urology for urinary retention OBJECTIVE Last Vital Signs Temp Pulse Resp BP Pulse Ox 98.3 F 107 H 20 98/66 96 05/02/20 07:40 05/02/20 07:40 05/02/20 07:40 05/02/20 07:40 05/02/20 07:40 PE: GEN: NAD HEENT: NC/AT PEAR RESP: CTAB CARDS: RRR, -MRG ABD: soft, nt/nd +BS EXT: No swelling/Edema Neuro: Non-focal, A&OX3 Labs/Imaging: reviewed ASSESSMENT/PLAN 69-year-old female with a history of MS, sarcoidosis, hypertension, hyperlipidemia recent diagnostic colonoscopy on 04/23/2020 presented with small bowel obstruction and mesenteric edema. #Small bowel obstruction PO Day #2. Has not passed gas or stool Continue clinimex NGT in place Pain control #hypkalemia/hypophosphatemia -aggressively replete given extra losses 2/2 gastric suction #Urinary obstruction Patient has failed trial of void Urology consult -cont ray Visit type - Emergency Visit Emergency Visit: Yes ED Registration Date: 04/25/20 Care time: The patient presented to the Emergency Department on the above date and was hospitalized for further evaluation of their emergent condition. - New Patient This patient is new to me today: No - Critical Care Critical Care patient: No - Medication Review Med list reviewed for High Risk Meds patients 65 and older: Yes
[2020-05-02 13:07] LABS: ALBUMIN 2.7 g/dl (3.4-5.0); BILIRUBIN,TOTAL 0.6 mg/dL (0.2-1); CALCIUM 8.6 mg/dL (8.5-10.1); CREATININE 0.5 mg/dL (0.55-1.3); POTASSIUM 3.5 mmol/L (3.5-5.1); TOT PROT 5.8 g/dl (6.4-8.2)
--- NOTE | 2020-05-02 20:59 | OP ---
DATE OF OPERATION: 04/30/2020 PREOPERATIVE DIAGNOSIS: Small-bowel obstruction. POSTOPERATIVE DIAGNOSIS: Small-bowel obstruction. PROCEDURE: Laparotomy and repair of internal hernia. SURGEON: Lucian Duong MD [employer] BUSTER: Olivia Ramírez PA-C ANESTHESIA: General. OPERATIVE FINDINGS: There was an internal hernia which was the result of previous gynecological surgery. Contained within that hernia was a loop of small bowel. The bowel was viable without any evidence of vascular compromise, and the rest of the findings were unremarkable. DESCRIPTION OF PROCEDURE: The patient was placed on the operating table in supine position. After the induction of general anesthesia, the patient's abdomen was prepped with ChloraPrep and draped in sterile fashion. Prior to this, a Samay[place] catheter was inserted and sequential compression devices placed on the patient's lower extremities. A timeout was taken and the abdomen entered through a midline incision starting above the umbilicus and extending towards the symphysis pubis. Upon exploration, the previously noted findings were observed. The ring of the internal hernia was released using electrocautery and then the bowel delivered from the defect and wrapped in warm saline laparotomy pads. The bowel distal to the obstruction was collapsed and the bowel proximal to the obstruction was dilated. All small bowel contents were milked cephalad into the stomach so they could be suctioned out by the NG tube that was in place. The internal hernia defect was closed using continuous 2-0 Vicryl suture. The bowel was then reassessed and found to be viable as noted above. Other adhesions in the pelvis were lysed using blunt dissection and then hemostasis checked for and noted to be good. The small bowel was returned to its normal anatomic position and the abdominal wall closed using continuous 0 loop Maxon suture. Subcutaneous tissue was irrigated and the skin edges reapproximated using surgical clay. Dry sterile dressings were placed and the procedure terminated at this point. The patient was aroused from general anesthesia and transferred to the postanesthesia care unit in a stable condition, awake and alert. ESTIMATED BLOOD LOSS: 20 mL. REPLACEMENTS: Crystalloid. DRAINS: None. SPECIMEN: None. I, Lucian Duong, was physically present in the operating room from the time the patient was placed on the operating table until she was transferred to the postanesthesia care unit in my accompaniment. MD CLAUDIA Cloud/[id number] JEROD
[2020-05-02] MEDS: KETOROLAC TROMETHAMINE 30 MG/1 ML VIAL IVPUSH PRN (22:31)
[2020-05-03] MEDS: KETOROLAC TROMETHAMINE 30 MG/1 ML VIAL IVPUSH PRN ×2 (03:47→11:38)
[2020-05-03] MEDS: PANTOPRAZOLE SODIUM 40 MG VIAL IVPUSH SCH (09:27)
[2020-05-03 09:39] LABS: BASO % 0.3 % (0-2.0); EOS % 2.6 % (0-4.5); HEMATOCRIT 29.8 % (32.4-45.2); LYMPH % 5.8 % (8-40); MCH 29.6 pg (25.7-33.7); MCHC 33.4 g/dl (32.0-36.0); MEAN CELL VOLUME 88.6 fl (80-96); MEAN PLT VOLUME 8.4 fl (7.5-11.1); MONO % 13.7 % (3.8-10.2); NEUT % 77.6 % (42.8-82.8); PLATELET COUNT 246 K/MM3 (134-434); RBC 3.36 M/mm3 (3.60-5.2); RDW 13.9 % (11.6-15.6); WHITE BLOOD COUNT 8.9 K/mm3 (4.0-10.0)
[2020-05-03 10:05] LABS: BLOOD UREA NITROGEN 29.4 mg/dL (7-18); CALCIUM 8.2 mg/dL (8.5-10.1); CREATININE 0.5 mg/dL (0.55-1.3); MAGNESIUM 1.4 mg/dL (1.8-2.4); PHOSPHOROUS 3.1 mg/dL (2.5-4.9); POTASSIUM 3.6 mmol/L (3.5-5.1)
--- NOTE | 2020-05-03 11:12 | PN ---
Progress Note (short form) - Note Progress Note: ttending Surgeon POD #3 Less c/o pain; no flatus/no bowel movement VSS AF abdo-incision c/d/i; less incisional tenderness; non distended; o/w negative; clay in place calves-soft; non tender labs noted; Phos nl/K nl/Mg low; WBC normal NGT 1200 IMP: stable POD# 3 PLAN: Continue ray/OOB/continue NGT to LCWS; replete magnesium; TOV tomorrow Lucian Duong MD FACS
[2020-05-03] MEDS: AMINO ACIDS 4.25%/D5W 1,000 ML IV SCH ×2 (13:01→23:41)
--- NOTE | 2020-05-03 13:06 | PN ---
Progress Note (short form) - Note Progress Note: SUBJECTIVE: Seen and examined at bedside. Pt still has not passed flatus. Ray in place for urinary obstruction OBJECTIVE Last Vital Signs Temp Pulse Resp BP Pulse Ox 98.5 F 93 H 20 117/62 94 L 05/03/20 11:10 05/03/20 11:10 05/03/20 11:10 05/03/20 11:10 05/03/20 11:10 PE: GEN: NAD HEENT: NC/AT PEARLL RESP: CTAB CARDS: RRR, -MRG ABD: soft, nt/nd +BS EXT: No swelling/Edema Neuro: Non-focal, A&OX3 Labs/Imaging: reviewed ASSESSMENT/PLAN 69-year-old female with a history of MS, sarcoidosis, hypertension, hyperlipidemia recent diagnostic colonoscopy on 04/23/2020 presented with small bowel obstruction and mesenteric edema. #Small bowel obstruction PO Day #3. Has not passed gas or stool Continue clinimex NGT in place Pain control #hypkalemia/hypophosphatemia -aggressively replete given extra losses 2/2 gastric suction #Urinary obstruction Patient has failed trial of void x2 Urology consulted: pending recs -cont ray Visit type - Emergency Visit Emergency Visit: Yes ED Registration Date: 04/25/20 Care time: The patient presented to the Emergency Department on the above date and was hospitalized for further evaluation of their emergent condition. - New Patient This patient is new to me today: No - Critical Care Critical Care patient: No - Medication Review Med list reviewed for High Risk Meds patients 65 and older: Yes
[2020-05-03] MEDS ORDERED: KCL 10 MEQ IVPB 10 MEQ/100 ML INFUS.BAG IVPB SCH (13:15)
[2020-05-04] MEDS: KETOROLAC TROMETHAMINE 30 MG/1 ML VIAL IVPUSH PRN ×2 (00:26→21:05)
[2020-05-04 09:19] LABS: CALCIUM 8.5 mg/dL (8.5-10.1); CREATININE 0.4 mg/dL (0.55-1.3); MAGNESIUM 1.5 mg/dL (1.8-2.4); POTASSIUM 3.4 mmol/L (3.5-5.1)
--- NOTE | 2020-05-04 09:47 | CONSULT ---
Consult - text type - Consultation Consultation Note: CC: urinary retention HPI: Patient is s/p repair of SBO secondary to internal hernia. Patient has had two episodes failed trial of voiding. Patient denies previous difficulty voiding. Patient with normal UA/renal function/and a normal WBC PE VSS; afeb abd-soft, non-tender genitalia-ray draining clear urine imp urinary retention s/p hernia repair plan avoid narcotics and continue with toraldol physical therapy give another trial of voiding when patient is ambulating regulary.
[2020-05-04 10:05] LABS: BASO % 0.3 % (0-2.0); EOS % 3.5 % (0-4.5); HEMOGLOBIN 9.3 GM/dL (10.7-15.3); LYMPH % 5.6 % (8-40); MCH 29.7 pg (25.7-33.7); MCHC 33.2 g/dl (32.0-36.0); MEAN CELL VOLUME 89.5 fl (80-96); MEAN PLT VOLUME 8.2 fl (7.5-11.1); MONO % 10.4 % (3.8-10.2); NEUT % 80.2 % (42.8-82.8); PLATELET COUNT 243 K/MM3 (134-434); RBC 3.13 M/mm3 (3.60-5.2); RDW 13.9 % (11.6-15.6); WHITE BLOOD COUNT 7.7 K/mm3 (4.0-10.0)
--- NOTE | 2020-05-04 10:09 | PN ---
Progress Note (short form) - Note Progress Note: Surgery POD#4 laparotomy and repair of internal hernia. Patient seen and examined on AM rounds. She c/o spitting up phlegm but denies any N/V. Her pain is controlled and she is anxious to remove the NGT. She is not passing flatus yet although she has been OOB ambulating frequently. She denies any CP, SOB, fever or chills. Vital Signs Temp 97.8 F 05/04/20 06:00 Pulse 92 H 05/04/20 06:00 Resp 20 05/04/20 06:00 BP 120/70 05/04/20 06:00 Pulse Ox 92 L 05/04/20 06:00 Intake & Output 05/03/20 05/03/20 05/04/20 11:59 23:59 11:59 Intake Total 498 336 504 Output Total 850 600 Balance 498 -514 -96 Intake: IV 498 336 504 CLINIMIX 498 336 504 s/l 0 IVPB 0 Output: Gastric Drainage 400 Urine 450 600 Samayoa 450 600 Other: Voiding Method Indwelling Catheter Indwelling Catheter Indwelling Catheter Bowel Movement No No No # Bowel Movements 0 CBC, BMP 05/04/20 08:08 05/04/20 08:08 PE: A&Ox3, NAD Unlabored resp on RA NGT secure and in place-put out 400cc yesterday. ABD: ND with mild ttp throughout, clay in situ with surrounding tissue intact and no evidence of tracking erythema, edeama or evidence of collection or d/c. B/L LE compartments soft, supple and non-tender with +2 DP pulses. Problem List - Problems (1) SBO (small bowel obstruction) Assessment/Plan: POD#4 slow to progress but stable. No flatus however no vomiting. abdomen benign. -TOV today per urology -place NGT to gravity. -OOB as tolerated -Encourage IS -Pain control Evaluation and plan discussed with Dr Duong Code(s): K56.609 - UNSP INTESTNL OBST, UNSP TO PARTIAL VERSUS COMPLETE OBST
[2020-05-04] MEDS: PANTOPRAZOLE SODIUM 40 MG VIAL IVPUSH SCH (11:17)
[2020-05-04] MEDS: ACETAMINOPHEN 1000 MG/100 ML VIAL (NON FORMULARY) IVPB PRN (11:26)
[2020-05-04] MEDS: AMINO ACIDS 4.25%/D5W 1,000 ML IV SCH (13:38)
--- NOTE | 2020-05-04 13:51 | PN ---
Teaching Attending Note Name of Resident: Zelalem Rangel ATTENDING PHYSICIAN STATEMENT I saw and evaluated the patient. I reviewed the resident's note and discussed the case with the resident. I agree with the resident's findings and plan as documented. SUBJECTIVE: Seen and examined at bedside. Pt still has not passed flatus. NGT switched to g ravity. Undergoing trial of void OBJECTIVE Last Vital Signs Temp Pulse Resp BP Pulse Ox 98.5 F 93 H 20 117/62 94 L 05/03/20 11:10 05/03/20 11:10 05/03/20 11:10 05/03/20 11:10 05/03/20 11:10 PE: GEN: NAD HEENT: NC/AT PEARLL RESP: CTAB CARDS: RRR, -MRG ABD: soft, nt/nd +BS EXT: No swelling/Edema Neuro: Non-focal, A&OX3 Labs/Imaging: reviewed ASSESSMENT/PLAN 69-year-old female with a history of MS, sarcoidosis, hypertension, hyperlipidemia recent diagnostic colonoscopy on 04/23/2020 presented with small bowel obstruction and mesenteric edema. #Small bowel obstruction PO Day #3. Has not passed gas or stool Continue clinimex NGT in place: switch to gravity Pain control #hypkalemia/hypophosphatemia -aggressively replete given extra losses 2/2 gastric suction #Urinary obstruction Patient has failed trial of void Urology consulted: -repeat TOV
--- NOTE | 2020-05-04 15:25 | PN.GI ---
GI Progress Note Subjective: Pt seen and examined by Dr Monsalve. s/p explore lap day 4 , no flatus, no BM. NGT to self gravity. . She c/o spitting up phlegm but denies any N/V. Denies abdominal pain - Objective Vital Signs: Vital Signs Temperature 98.4 F 05/04/20 14:00 Pulse Rate 92 H 05/04/20 14:00 Respiratory Rate 20 05/04/20 14:00 Blood Pressure 115/55 L 05/04/20 14:00 O2 Sat by Pulse Oximetry (%) 92 L 05/04/20 14:00 Constitutional: Well Nourished, No Distress, Calm Eyes: Yes: Conjunctiva Clear, EOM Intact HENT: Yes: Atraumatic, Normocephalic Neck: Yes: Supple, Trachea Midline Cardiovascular: Yes: Regular Rate and Rhythm Respiratory: Yes: Regular, CTA Bilaterally Gastrointestinal Inspection: Yes: WNL. No: Distention ...Auscultate: Yes: Hypoactive Bowel Sounds ...Palpate: Yes: Soft. No: Firm/Rigid, Guarding, Hepatomegaly, Mass, Pulsatile Mass, Splenomegaly, Tenderness Genitourinary: Yes: Samay[place] Present Labs: CBC, BMP 05/04/20 08:08 05/04/20 08:08 INR, PTT INR 1.13 (0.83-1.09) H 04/29/20 20:05 Problem List - Problems (1) SBO (small bowel obstruction) Assessment/Plan: s/p explore lap, plan discussed with Dr Monsalve R> IV hydration correct electrolytes encourage ambulation incentive spirometry Code(s): K56.609 - UNSP INTESTNL OBST, UNSP TO PARTIAL VERSUS COMPLETE OBST
--- NOTE | 2020-05-04 19:34 | PN ---
Physical Exam: SUBJECTIVE: Patient seen and examined at bedside. No acute events overnight. Denies passing flatus. OBJECTIVE: Vital Signs Period Temp Pulse Resp BP Sys/Christopher Pulse Ox Last 24 Hr 97.6 F-98.8 F 88-96 20-20 114-129/55-70 91-98 GENERAL: NAD HEAD: Normal with no signs of trauma. NGT in place EYES: EOMI Sclera Clear ENT: MMM NECK: Trachea midline, full range of motion, supple. LUNGS: Clear to auscultation bilaterally. No wheezing rhonchi or rales HEART: RRR S1S2 No MRG ABDOMEN: NDNT, Hypoactive bowel sounds. EXTREMITIES: No CCE NEUROLOGICAL: No focal neuro deficits appreciated Laboratory Results - last 24 hr 04/30/20 05/04/20 05/04/20 10:00 08:08 08:08 WBC 7.7 RBC 3.13 L Hgb 9.3 L Hct 28.0 L MCV 89.5 MCH 29.7 MCHC 33.2 RDW 13.9 Plt Count 243 MPV 8.2 Absolute Neuts (auto) 6.1 Neutrophils % 80.2 Lymphocytes % 5.6 L Monocytes % 10.4 H Eosinophils % 3.5 Basophils % 0.3 Nucleated RBC % 0 Sodium 136 Potassium 3.4 L Chloride 101 Carbon Dioxide 27 Anion Gap 7 L BUN 23.0 H Creatinine 0.4 L Est GFR (CKD-EPI)AfAm 122.31 Est GFR (CKD-EPI)NonAf 105.53 Random Glucose 95 Calcium 8.5 Phosphorus 3.0 Magnesium 1.5 L Crossmatch See Detail Active Medications Generic Name Dose Route Start Last Admin Trade Name Freq PRN Reason Stop Dose Admin Acetaminophen 1,000 mg 05/04/20 10:50 05/04/20 11:26 Ofirmev Injection - IVPB 05/05/20 10:51 1,000 mg Q6H PRN Administration fever or pain 1-3 Eucalyptus/Menthol/Phenol/Sorbitol 1 each 04/30/20 17:02 Cepastat Lozenge - MM Q4H PRN SORE THROAT Amino Acids 1,000 mls @ 84 mls/hr 04/30/20 23:45 05/04/20 13:38 Clinimix - IV 84 mls/hr Q12H ADELINE Administration Ketorolac Tromethamine 30 mg 05/01/20 11:39 05/04/20 00:26 Toradol Injection - IVPUSH 05/06/20 17:59 30 mg Q8H-IV PRN Administration PAIN LEVEL 4-6 Pantoprazole Sodium 40 mg 05/01/20 10:00 05/04/20 11:17 Protonix Iv IVPUSH 40 mg DAILY ADELINE Administration Phenol/Menthol 1 spray 04/30/20 17:02 Chloraseptic - MM Q6HPO PRN SORE THROAT ASSESSMENT/PLAN: 69F w/ PMHx MS, sarcoidosis, HTN, HLD, recent diagnostic colonoscopy on 04/23/2020 presented with SBO and mesenteric edema. #Small bowel obstruction -Now POD#4 s/p ExLap with reduction internal hernia-Dr Duong NPO w/ NGT placed Surgery on board -GI consulted---> Rec increase IV Fluids -Analgesia -IV Hydration -Clinimix #HTN/HLD; Hold home meds, Resume when BP is above goal #Urinary retention Patient has failed trial of void. Dr Arora on board. Recs appreciated -repeat TOV #Sarcoidosis; No acute issues. #FEN -No Standing fluids -Replete Lytes PRN -NPO #Prophylaxis DVT: SCDs Dispo -cont to monitor on med-surg Visit type - Emergency Visit Emergency Visit: Yes ED Registration Date: 04/25/20 Care time: The patient presented to the Emergency Department on the above date and was hospitalized for further evaluation of their emergent condition. - New Patient This patient is new to me today: No - Critical Care Critical Care patient: No - Discharge Referral Referred to [facility] Med P.C.: No - Medication Review Med list reviewed for High Risk Meds patients 65 and older: Yes ATTENDING PHYSICIAN STATEMENT I saw and evaluated the patient. I reviewed the resident's note and discussed the case with the resident. I agree with the resident's findings and plan as documented. SUBJECTIVE: OBJECTIVE: ASSESSMENT AND PLAN:
[2020-05-04] MEDS ORDERED: FAT EMULSION/OLIVE/SOY (CLINOLIPID) 250 ML EMULSION IV SCH (22:00)
[2020-05-04] MEDS: FAT EMULSION/OLIVE/SOY/PHOSPHO 250 ML IV SCH (22:54)
[2020-05-05] MEDS: AMINO ACIDS 4.25%/D5W 1,000 ML IV SCH ×3 (00:52→12:42)
[2020-05-05] MEDS: ACETAMINOPHEN 1000 MG/100 ML VIAL (NON FORMULARY) IVPB PRN (01:17)
[2020-05-05] MEDS ORDERED: PT OWN MED DRAWER 7, Y5N ONE ×2 (01:53→01:55)
[2020-05-05] MEDS: KETOROLAC TROMETHAMINE 30 MG/1 ML VIAL IVPUSH PRN ×2 (06:48→18:57)
--- NOTE | 2020-05-05 08:09 | PN ---
Progress Note (short form) - Note Progress Note: Surgery POD#5 laparotomy and repair of internal hernia. Patient seen and examined on AM rounds. Pt states she feels like she is about to pass flatus, but hasn't yet. Her pain is controlled and her NGT is on gravity. She is not passing flatus yet although she has been OOB ambulating frequently. She denies any CP, SOB, fever or chills. Last Vital Signs Temp Pulse Resp BP Pulse Ox 98.5 F 96 H 20 138/78 97 05/05/20 06:00 05/05/20 06:00 05/05/20 06:00 05/05/20 06:00 05/05/20 06:00 CBC, BMP 05/04/20 08:08 05/04/20 08:08 PE: A&Ox3, NAD Unlabored resp on RA NGT secure and in place-put out 400cc yesterday. ABD: ND with mild ttp throughout, clay in situ with surrounding tissue intact and no evidence of tracking erythema, edema or evidence of collection or d/c. B/L LE compartments soft, supple and non-tender with +2 DP pulses. Problem List - Problems (1) SBO (small bowel obstruction) Assessment/Plan: POD#5 slow to progress but stable. No flatus however no vomiting. abdomen benign. - NGT to gravity. -OOB as tolerated -Encourage IS -Pain control Evaluation and plan discussed with Dr Duong
[2020-05-05 08:42] LABS: HEMATOCRIT 27.5 % (32.4-45.2); HEMOGLOBIN 9.5 GM/dL (10.7-15.3); MCH 30.6 pg (25.7-33.7); MCHC 34.4 g/dl (32.0-36.0); MEAN PLT VOLUME 8.4 fl (7.5-11.1); PLATELET COUNT 240 K/MM3 (134-434); RBC 3.09 M/mm3 (3.60-5.2); RDW 14.3 % (11.6-15.6); WHITE BLOOD COUNT 6.8 K/mm3 (4.0-10.0)
[2020-05-05 09:13] LABS: ALBUMIN 2.5 g/dl (3.4-5.0); BILIRUBIN,TOTAL 0.6 mg/dL (0.2-1); BLOOD UREA NITROGEN 20.4 mg/dL (7-18); CALCIUM 8.5 mg/dL (8.5-10.1); CREATININE 0.5 mg/dL (0.55-1.3); MAGNESIUM 1.6 mg/dL (1.8-2.4); PHOSPHOROUS 2.9 mg/dL (2.5-4.9); POTASSIUM 3.2 mmol/L (3.5-5.1); TOT PROT 5.5 g/dl (6.4-8.2)
[2020-05-05] MEDS: PANTOPRAZOLE SODIUM 40 MG VIAL IVPUSH SCH (10:20)
--- NOTE | 2020-05-05 11:40 | PN ---
Physical Exam: SUBJECTIVE: Patient seen and examined at bedside. She admits passing flatus twice this morning. Denies passing bowel movement yet. She denies chest pain, palpitations, abdominal pain, nasuea, vomiting. OBJECTIVE: Vital Signs Period Temp Pulse Resp BP Sys/Christopher Pulse Ox Last 24 Hr 98.2 F-98.8 F 88-96 20-20 114-138/55-78 92-98 GENERAL: The patient is awake, alert, and fully oriented, in no acute distress. HEAD: Normocephalic, atraumatic. EYES: PERRL, extraocular movements intact, sclera anicteric, conjunctiva clear. ENT: Oropharynx clear, without erythema or exudates. Moist mucous membranes. NG tube in place, gravity suction. NECK: Trachea midline, full range of motion. Supple without lymphadenopathy. LUNGS: Breath sounds equal, clear to auscultation bilaterally. No wheezes, no crackles. No accessory muscle use. HEART: Regular rate and rhythm. S1, S2 without murmur, rub or gallop. ABDOMEN: Soft, nondistended, nontender to light and deep palpation x4 quadrants. No rebound tenderness, no guarding. Hypoactive bowel sounds x4 quadrants. No hepatosplenomegaly, no masses appreciated. EXTREMITIES: 2+ radial, dorsalis pedis pulses bilaterally. Warm, well-perfused. No lower extremity edema bilaterally. NEUROLOGICAL: Cranial nerves II through XII grossly intact. Normal speech. No gross focal deficits. PSYCH: Normal mood, normal affect upon my encounter. SKIN: Warm, dry. Laboratory Results - last 24 hr 05/05/20 05/05/20 07:35 07:35 WBC 6.8 RBC 3.09 L Hgb 9.5 L Hct 27.5 L MCV 89.0 MCH 30.6 MCHC 34.4 RDW 14.3 Plt Count 240 MPV 8.4 Sodium 138 Potassium 3.2 L Chloride 105 Carbon Dioxide 25 Anion Gap 8 BUN 20.4 H Creatinine 0.5 L Est GFR (CKD-EPI)AfAm 113.65 Est GFR (CKD-EPI)NonAf 98.06 Random Glucose 100 Calcium 8.5 Phosphorus 2.9 Magnesium 1.6 L Total Bilirubin 0.6 AST 55 H ALT 55 Alkaline Phosphatase 193 H Total Protein 5.5 L Albumin 2.5 L Active Medications Generic Name Dose Route Start Last Admin Trade Name Freq PRN Reason Stop Dose Admin Eucalyptus/Menthol/Phenol/Sorbitol 1 each 04/30/20 17:02 Cepastat Lozenge - MM Q4H PRN SORE THROAT Amino Acids 1,000 mls @ 84 mls/hr 04/30/20 23:45 05/05/20 00:52 Clinimix - IV 84 mls/hr Q12H ADELINE Administration Fat Emulsion-[place] Oil/Soybean Oil 250 mls @ 20.833 mls/hr 05/04/20 22:00 05/04/20 22:54 Clinolipid 20% Iv Fat Emulsion IV 20.833 mls/hr DAILY@2200 ADELINE Administration Potassium Chloride 10 meq in 100 mls @ 100 mls/hr 05/05/20 11:45 Potassium Chloride 10 Meq Premix Ivpb - IVPB 05/05/20 14:44 Q60M ADELINE Ketorolac Tromethamine 30 mg 05/01/20 11:39 05/05/20 06:48 Toradol Injection - IVPUSH 05/06/20 17:59 30 mg Q8H-IV PRN Administration PAIN LEVEL 4-6 Magnesium Sulfate 2 gm 05/05/20 11:39 Magnesium Sulfate IVPB 05/05/20 11:40 ONCE ONE Multivitamins/Minerals 10 ml 05/05/20 10:00 Infuvite Adult - IV DAILY ADELINE Pantoprazole Sodium 40 mg 05/01/20 10:00 05/05/20 10:20 Protonix Iv IVPUSH 40 mg DAILY ADELINE Administration Phenol/Menthol 1 spray 04/30/20 17:02 Chloraseptic - MM Q6HPO PRN SORE THROAT ASSESSMENT/PLAN: Patient is a 69 year old female with history of multiple sclerosis, sarcoidosis, hypertension, hyperlipidemia admitted for small bowel obstruction. Small bowel obstruction -S/P colonoscopy on 04/23 -Patient is passing flatus -NG tube to be discontinued by surgery -Trial of clear liquid diet, per surgery -Protonix 40mg IV daily Urinary retention -Patient endorses history of urinary retention for the past month -Urology recommendations appreciated. Will allow for repeat trial of voiding. History of hypertension, hyperlipidemia -Home medication on hold while patient NPO. Currently normotensive. -Reinstate home medications once clinically appropriate. -Monitor vital signs FEN -Clinimix -Hypokalemia, hypomagnesemia repleted. Follow BMP -Trial of clear liquid diet. Will DC clinimix if tolerating diet. Prophylaxis -SCDs bilateral lower extremities -Protonix 40mg IV daily Disposition -Continue care in medical- surgical floor Visit type - Emergency Visit Emergency Visit: Yes ED Registration Date: 04/25/20 Care time: The patient presented to the Emergency Department on the above date and was hospitalized for further evaluation of their emergent condition. - New Patient This patient is new to me today: Yes Date on this admission: 05/05/20 - Critical Care Critical Care patient: No - Discharge Referral Referred to [facility] Med P.C.: No - Medication Review Med list reviewed for High Risk Meds patients 65 and older: Yes ATTENDING PHYSICIAN STATEMENT I saw and evaluated the patient. I reviewed the resident's note and discussed the case with the resident. I agree with the resident's findings and plan as documented. SUBJECTIVE: OBJECTIVE: ASSESSMENT AND PLAN:
[2020-05-05] MEDS ORDERED: MAGNESIUM 2GM/50ML STERILE WATER IVPB IVPB ONE (12:15)
[2020-05-05] MEDS: MULTIVIT INJ. ADULT COMBO WITH VIT K 1 COMBO 10 ML VIAL IV SCH (12:42)
--- NOTE | 2020-05-05 12:52 | PN ---
Teaching Attending Note Name of Resident: Johnnie Gomez ATTENDING PHYSICIAN STATEMENT I saw and evaluated the patient. I reviewed the resident's note and discussed the case with the resident. I agree with the resident's findings and plan as documented. SUBJECTIVE: Seen and examined at bedside. Patient reports passing flatus at 0910 this mor delia. Has not had nausea or vomiting. Per surgery will remove NG tube OBJECTIVE Last Vital Signs Temp Pulse Resp BP Pulse Ox 98.2 F 94 H 20 117/73 96 05/05/20 09:24 05/05/20 09:24 05/05/20 09:24 05/05/20 09:24 05/05/20 09:24 PE: GEN: NAD HEENT: NC/AT TREVON RESP: CTAB CARDS: RRR, -MRG ABD: soft, nt/nd +BS EXT: No swelling/Edema Neuro: Non-focal, A&OX3 Labs/Imaging: reviewed ASSESSMENT/PLAN 69-year-old female with a history of MS, sarcoidosis, hypertension, hyperlipidemia recent diagnostic colonoscopy on 04/23/2020 presented with small bowel obstruction and mesenteric edema. #Small bowel obstruction PO Day #5. Passed gas 05/05 AM -DC NGT per surgery -Diet initiation per surgical team Continue clinimex NGT in place: switch to gravity Pain control #hypkalemia/hypophosphatemia -aggressively replete #Urinary obstruction Patient has failed trial of void Urology consulted: -repeat TOV today
[2020-05-05] MEDS: KCL 10 MEQ IVPB 10 MEQ/100 ML INFUS.BAG IVPB SCH ×4 (13:44→18:46)
--- NOTE | 2020-05-05 14:31 | PN.GI ---
GI Progress Note Subjective: Pt seen and examined at bedside. s/p explore lap day 4 , pt passing gas , no BM. NGT to self gravity. to be d/michelle today as per surgery. Denies any N/V. Denies abdominal pain - Objective Vital Signs: Vital Signs Temperature 98.2 F 05/05/20 09:24 Pulse Rate 94 H 05/05/20 09:24 Respiratory Rate 20 05/05/20 09:24 Blood Pressure 117/73 05/05/20 09:24 O2 Sat by Pulse Oximetry (%) 96 05/05/20 09:24 Constitutional: Well Nourished, No Distress, Calm Eyes: Yes: WNL, Conjunctiva Clear HENT: Yes: WNL, Atraumatic Neck: Yes: WNL, Supple, Trachea Midline Cardiovascular: Yes: Regular Rate and Rhythm Respiratory: Yes: WNL, Regular, CTA Bilaterally Gastrointestinal Inspection: No: Distention ...Auscultate: Yes: Normoactive Bowel Sounds ...Palpate: Yes: Soft. No: Firm/Rigid, Guarding, Hepatomegaly, Mass, Pulsatile Mass, Splenomegaly, Tenderness Labs: CBC, BMP 05/05/20 07:35 05/05/20 07:35 INR, PTT INR 1.13 (0.83-1.09) H 04/29/20 20:05 Problem List - Problems (1) SBO (small bowel obstruction) Assessment/Plan: s/p explore lap, plan discussed with Dr Bello schultz post Sx Advance diet as per surgery R> IV hydration correct electrolytes encourage ambulation incentive spirometry Code(s): K56.609 - UNSP INTESTNL OBST, UNSP TO PARTIAL VERSUS COMPLETE OBST
[2020-05-06] MEDS: AMINO ACIDS 4.25%/D5W 1,000 ML IV SCH ×3 (00:52→23:03)
[2020-05-06] MEDS: FAT EMULSION/OLIVE/SOY/PHOSPHO 250 ML IV SCH (00:52)
[2020-05-06 08:39] LABS: HEMATOCRIT 28.1 % (32.4-45.2); HEMOGLOBIN 9.6 GM/dL (10.7-15.3); MCH 30.5 pg (25.7-33.7); MCHC 34.1 g/dl (32.0-36.0); MEAN CELL VOLUME 89.4 fl (80-96); MEAN PLT VOLUME 7.9 fl (7.5-11.1); PLATELET COUNT 264 K/MM3 (134-434); RBC 3.15 M/mm3 (3.60-5.2); RDW 14.1 % (11.6-15.6); WHITE BLOOD COUNT 5.5 K/mm3 (4.0-10.0)
[2020-05-06 08:56] LABS: ALBUMIN 2.8 g/dl (3.4-5.0); BLOOD UREA NITROGEN 15.1 mg/dL (7-18); CALCIUM 8.8 mg/dL (8.5-10.1); PHOSPHOROUS 3.1 mg/dL (2.5-4.9); POTASSIUM 3.3 mmol/L (3.5-5.1); TOT PROT 5.9 g/dl (6.4-8.2)
[2020-05-06 08:58] LABS: BILIRUBIN,TOTAL 0.6 mg/dL (0.2-1); CREATININE 0.4 mg/dL (0.55-1.3)
--- NOTE | 2020-05-06 09:05 | PN ---
Progress Note (short form) - Note Progress Note: Surgery POD#5 s/p laparotomy and repair of internal hernia. Patient seen and examined on AM rounds. Reports she had a very difficult night. Was oob to the bathroom every 2 hours having loose stools. No n/v, tolerating clears. Requesting more food. Pain is controlled, passing flatus. Denies any CP, SOB, fever or chills. Vital Signs Temp 98.2 F 05/06/20 06:00 Pulse 99 H 05/06/20 06:00 Resp 20 05/06/20 06:00 BP 134/75 05/06/20 06:00 Pulse Ox 94 L 05/06/20 06:00 Intake & Output 05/05/20 05/05/20 05/06/20 11:59 23:59 11:59 Intake Total 1154 700 250 Output Total 400 250 Balance 754 450 250 Intake: IV 1008 500 250 CLINIMIX 1008 500 250 IVPB 146 100 Oral 0 100 Output: Urine 400 250 [place] 400 250 Other: Voiding Method Indwelling Catheter Bedpan Bedpan # Unmeasured Voids [place] 1 1 Bowel Movement No No No CBC, BMP 05/06/20 07:20 05/06/20 07:20 PE: A&Ox3, NAD Unlabored resp on RA ABD: ND with mild ttp throughout, clay in place with surrounding tissue intact and no evidence of tracking erythema, edema or evidence of collection or d/c. B/L LE compartments soft, supple and non-tender with +2 DP pulses. A/P: 69 y/o F w/ PMHx MS, sarcoidosis, HTN and HLD a/w abdominal pain and fullness s/p colonoscopy with Dr. Monsalve, found to have sbo with concern for internal hernia, now POD#5, s/p laparotomy and repair of internal hernia. no n/v, tolerating clears passing flatus having bms afebrile, vss -regular diet ordered -pain control -commode bedside -OOB as tolerated -Encourage IS -if tolerates diet can d/c tomorrow d/w Dr Duong
[2020-05-06] MEDS: MULTIVIT INJ. ADULT COMBO WITH VIT K 1 COMBO 10 ML VIAL IV SCH (10:42)
[2020-05-06] MEDS: PANTOPRAZOLE SODIUM 40 MG VIAL IVPUSH SCH (11:06)
--- NOTE | 2020-05-06 13:44 | PN.GI ---
GI Progress Note Subjective: Pt seen and examined at bedside. s/p explore lap , pt passing gas , reports having diarhea from last night. Diet advanced to lactose free, low fibre diet today. Reports abdominal bloating and diffuse abdominal pain more at the incision site. Denies any N/V. - Objective Vital Signs: Vital Signs Temperature 98.2 F 05/06/20 06:00 Pulse Rate 99 H 05/06/20 06:00 Respiratory Rate 05/06/20 06:00 Blood Pressure 134/75 05/06/20 06:00 O2 Sat by Pulse Oximetry (%) 94 L 05/06/20 06:00 Constitutional: Well Nourished, No Distress, Calm Eyes: Yes: WNL, Conjunctiva Clear, EOM Intact HENT: Yes: WNL, Atraumatic, Normocephalic Neck: Yes: WNL, Supple, Trachea Midline Cardiovascular: Yes: WNL, Regular Rate and Rhythm Respiratory: Yes: WNL, Regular, CTA Bilaterally Gastrointestinal Inspection: No: Distention ...Auscultate: Yes: Normoactive Bowel Sounds ...Palpate: Yes: Soft, Tenderness (tenderness at incision site). No: Firm/ Rigid, Guarding, Hepatomegaly, Mass, Pulsatile Mass, Splenomegaly Labs: CBC, BMP 05/06/20 07:20 05/06/20 07:20 INR, PTT INR 1.13 (0.83-1.09) H 04/29/20 20:05 Problem List - Problems (1) SBO (small bowel obstruction) Assessment/Plan: s/p explore lap, plan discussed with Dr Bello schultz post Sx Advance diet as per surgery correct electrolytes obtain Cdiff for diarhea encourage PO hydration protonix change to PO as pt has no IV access. encourage ambulation incentive spirometry Code(s): K56.609 - UNSP INTESTNL OBST, UNSP TO PARTIAL VERSUS COMPLETE OBST Code(s): K56.609 - UNSP INTESTNL OBST, UNSP TO PARTIAL VERSUS COMPLETE OBST
--- NOTE | 2020-05-06 14:04 | PN ---
Teaching Attending Note Name of Resident: Zelalem Rangel ATTENDING PHYSICIAN STATEMENT I saw and evaluated the patient. I reviewed the resident's note and discussed the case with the resident. I agree with the resident's findings and plan as documented. SUBJECTIVE: Seen and examined at bedside. Patient had diarrhea overnight, difficult night. Has increased bloating today. Diet increased to regular by surgical team OBJECTIVE Last Vital Signs Temp Pulse Resp BP Pulse Ox 98.2 F 99 H 20 134/75 94 L 05/06/20 06:00 05/06/20 06:00 05/06/20 06:00 05/06/20 06:00 05/06/20 06:00 PE: GEN: NAD HEENT: NC/AT PEARLL RESP: CTAB CARDS: RRR, -MRG ABD: soft, nt/nd +BS EXT: No swelling/Edema Neuro: Non-focal, A&OX3 Labs/Imaging: reviewed ASSESSMENT/PLAN 69-year-old female with a history of MS, sarcoidosis, hypertension, hyperlipidemia recent diagnostic colonoscopy on 04/23/2020 presented with small b owel obstruction and mesenteric edema. #Small bowel obstruction PO Day #5. Passed gas 05/05 AM -switch to regular diet -DC clinimex -NGT removed Pain control #Diarrhea -after long period of SBO -no indication for cdiff as WBC normal and better explained by resolving postoperative illeus #hypkalemia/hypophosphatemia -aggressively replete #Urinary obstruction Patient has failed trial of void Urology consulted: -repeat TOV today
--- NOTE | 2020-05-06 18:10 | PN ---
Physical Exam: SUBJECTIVE: Patient seen and examined at bedside. Has passed stool. Denies abdominal pain. Reported diarrhea overnight. OBJECTIVE: Vital Signs Period Temp Pulse Resp BP Sys/Christopher Pulse Ox Last 24 Hr 98.1 F-99 F 84-99 10-20 103-134/59-75 94-100 GENERAL: No acute distress HEAD: Normal with no signs of trauma. EYES: EOMI Sclera Clear ENT: MMM NECK: Trachea midline, full range of motion, supple. LUNGS: CTAB. No wheezing rhonchi or rales HEART: RRR S1S2 No MRG ABDOMEN: NDNT, BS + EXTREMITIES: No CCE Laboratory Results - last 24 hr 05/06/20 05/06/20 07:20 07:20 WBC 5.5 RBC 3.15 L Hgb 9.6 L Hct 28.1 L MCV 89.4 MCH 30.5 MCHC 34.1 RDW 14.1 Plt Count 264 MPV 7.9 Sodium 138 Potassium 3.3 L Chloride 104 Carbon Dioxide 25 Anion Gap 8 BUN 15.1 Creatinine 0.4 L Est GFR (CKD-EPI)AfAm 122.31 Est GFR (CKD-EPI)NonAf 105.53 Random Glucose 81 Calcium 8.8 Phosphorus 3.1 Magnesium 2.0 Total Bilirubin 0.6 AST 44 H ALT 53 Alkaline Phosphatase 216 H Total Protein 5.9 L Albumin 2.8 L Active Medications Generic Name Dose Route Start Last Admin Trade Name Freq PRN Reason Stop Dose Admin Acetaminophen 650 mg 05/06/20 09:36 Tylenol - PO Q4H PRN PAIN LEVEL 1-5 Eucalyptus/Menthol/Phenol/Sorbitol 1 each 04/30/20 17:02 Cepastat Lozenge - MM Q4H PRN SORE THROAT Amino Acids 1,000 mls @ 84 mls/hr 04/30/20 23:45 05/06/20 12:09 Clinimix - IV Not Given Q12H ADELINE Multivitamins/Minerals/Vitamin C 1 tab 05/06/20 18:15 Tab-A-Vit - PO DAILY ADELINE Pantoprazole Sodium 40 mg 05/07/20 10:00 Protonix - PO DAILY ADELINE Phenol/Menthol 1 spray 04/30/20 17:02 Chloraseptic - MM Q6HPO PRN SORE THROAT ASSESSMENT/PLAN: 69F w/ PMHx MS, sarcoidosis, HTN, HLD, recent diagnostic colonoscopy on 04/23/2020 presented with SBO and mesenteric edema. #Small bowel obstruction -Now POD#6 s/p ExLap with reduction internal hernia-Dr Rhoda COBIAN removed Surgery on board -GI on board -Analgesia -Clinimix discontinued -Diet advanced #HTN/HLD; Hold home meds, Resume when BP is above goal #Urinary retention Patient has failed trial of void. Dr Arora on board. Recs appreciated -repeat TOV #Sarcoidosis; No acute issues. #FEN -No Standing fluids -Replete Lytes PRN -Soft Diet #Prophylaxis DVT: SCDs Dispo -cont to monitor on med-surg Visit type - Emergency Visit Emergency Visit: Yes ED Registration Date: 04/25/20 Care time: The patient presented to the Emergency Department on the above date and was hospitalized for further evaluation of their emergent condition. - New Patient This patient is new to me today: No - Critical Care Critical Care patient: No - Discharge Referral Referred to [facility] Med P.C.: No - Medication Review Med list reviewed for High Risk Meds patients 65 and older: Yes ATTENDING PHYSICIAN STATEMENT I saw and evaluated the patient. I reviewed the resident's note and discussed the case with the resident. I agree with the resident's findings and plan as documented. SUBJECTIVE: OBJECTIVE: ASSESSMENT AND PLAN:
[2020-05-06] MEDS: MULTIVITAMINS (DAILY MVI) TABLET (FP) PO SCH (20:13)
[2020-05-06] MEDS: ACETAMINOPHEN 325 MG TABLET (FP) PO PRN (23:10)
[2020-05-07] MEDS ORDERED: MELATONIN 5 MG TABLETS PO ONE (01:33)
[2020-05-07 08:23] LABS: RBC 2.88 M/mm3 (3.60-5.2); WHITE BLOOD COUNT 5.3 K/mm3 (4.0-10.0)
[2020-05-07 08:24] LABS: HEMATOCRIT 25.5 % (32.4-45.2); HEMOGLOBIN 8.5 GM/dL (10.7-15.3); MCH 29.6 pg (25.7-33.7); MCHC 33.5 g/dl (32.0-36.0); MEAN CELL VOLUME 88.4 fl (80-96); MEAN PLT VOLUME 7.8 fl (7.5-11.1); PLATELET COUNT 257 K/MM3 (134-434); RDW 14.6 % (11.6-15.6)
[2020-05-07 09:02] LABS: BLOOD UREA NITROGEN 15.8 mg/dL (7-18); CALCIUM 8.4 mg/dL (8.5-10.1); CREATININE 0.4 mg/dL (0.55-1.3); MAGNESIUM 1.8 mg/dL (1.8-2.4); PHOSPHOROUS 3.4 mg/dL (2.5-4.9); POTASSIUM 3.4 mmol/L (3.5-5.1)
--- NOTE | 2020-05-07 10:41 | PN.GI ---
GI Progress Note Subjective: Seen and examined at bedside. Patient reports increased bloating today. Denies diarrhea. Tolerating diet. - Objective Vital Signs: Vital Signs Temperature 98 F 05/07/20 06:00 Pulse Rate 88 05/07/20 06:00 Respiratory Rate 18 05/07/20 06:00 Blood Pressure 109/53 L 05/07/20 06:00 O2 Sat by Pulse Oximetry (%) 92 L 05/07/20 06:00 Constitutional: Well Nourished, No Distress, Calm Eyes: Yes: WNL, Conjunctiva Clear HENT: Yes: WNL, Atraumatic, Normocephalic Neck: Yes: WNL, Supple, Trachea Midline Cardiovascular: Yes: WNL, Regular Rate and Rhythm Respiratory: Yes: WNL, Regular, CTA Bilaterally Gastrointestinal Inspection: Yes: WNL ...Auscultate: Yes: Normoactive Bowel Sounds ...Palpate: Yes: Soft, Tenderness (incision site). No: Firm/Rigid, Guarding, Hepatomegaly, Mass, Pulsatile Mass, Splenomegaly Labs: CBC, BMP 05/07/20 07:14 05/07/20 07:14 INR, PTT INR 1.13 (0.83-1.09) H 04/29/20 20:05 Problem List - Problems (1) SBO (small bowel obstruction) Assessment/Plan: s/p explore lap, plan discussed with Dr Bello schultz post Sx correct electrolytes Cdiff for diarhea- pending encourage PO hydration maintain on PPI start simethicone 80mg QID start Flagyl 250mg TID encourage ambulation incentive spirometry Code(s): K56.609 - UNSP INTESTNL OBST, UNSP TO PARTIAL VERSUS COMPLETE OBST
[2020-05-07] MEDS: MULTIVITAMINS (DAILY MVI) TABLET (FP) PO SCH (11:43)
[2020-05-07] MEDS: PANTOPRAZOLE 40 MG TABLET PO SCH (11:43)
[2020-05-07] MEDS: AMINO ACIDS 4.25%/D5W 1,000 ML IV SCH (11:59)
--- NOTE | 2020-05-07 13:00 | PN ---
Progress Note (short form) - Note Progress Note: Surgery POD#7 laparotomy and repair of internal hernia. Patient seen and examined on AM rounds. Pt states that she has had multiple BMs and is tolerating regular diet. Pt was put on NC this am because she felt short of breath. Pt complains of mild abd pain with moving. Last Vital Signs Temp Pulse Resp BP Pulse Ox 98 F 88 18 106/58 L 96 05/07/20 06:00 05/07/20 10:00 05/07/20 10:00 05/07/20 10:00 05/07/20 10:00 CBC, BMP 05/07/20 07:14 05/07/20 07:14 PE: A&Ox3, NAD Unlabored resp on RA NGT secure and in place-put out 400cc yesterday. ABD: ND with mild ttp throughout, clay in situ with surrounding tissue intact and no evidence of tracking erythema, edema or evidence of collection or d/c. B/L LE compartments soft, supple and non-tender Problem List - Problems (1) SBO (small bowel obstruction) Assessment/Plan: POD#7 pt appears to be doing well from a surgical standpoint, tolerating PO and having BMs -pt cleared from surgery standpoint for discharge. Pt should follow up with Dr. Duong next week for staple removal. Evaluation and plan discussed with Dr Duong
[2020-05-07] MEDS: SIMETHICONE 80 MG TAB.CHEW (FP) PO SCH ×3 (13:44→21:23)
[2020-05-07] MEDS: metroNIDAZOLE 250 MG TABLET PO SCH ×2 (13:44→21:22)
--- NOTE | 2020-05-07 13:52 | PN ---
Teaching Attending Note Name of Resident: Zelalem Rangel ATTENDING PHYSICIAN STATEMENT I saw and evaluated the patient. I reviewed the resident's note and discussed the case with the resident. I agree with the resident's findings and plan as documented. SUBJECTIVE: Seen and examined at bedside. Diarrhea improved. C. difficile negative. Jenifer nt reports shortness of breath was placed on oxygen overnight. Started on simethicone and metronidazole by GI OBJECTIVE Last Vital Signs Temp Pulse Resp BP Pulse Ox 98 F 88 18 106/58 L 96 05/07/20 06:00 05/07/20 10:00 05/07/20 10:00 05/07/20 10:00 05/07/20 10:00 PE: GEN: NAD HEENT: NC/AT PEARLL RESP: CTAB CARDS: RRR, -MRG ABD: soft, nt/nd +BS EXT: No swelling/Edema Neuro: Non-focal, A&OX3 Labs/Imaging: reviewed ASSESSMENT/PLAN 69-year-old female with a history of MS, sarcoidosis, hypertension, hyperlipidemia recent diagnostic colonoscopy on 04/23/2020 presented with small bowel obstruction and mesenteric edema. #Small bowel obstruction PO Day #6. -having abd distention -simethicone and flagyl started by GI? #Diarrhea:improved -cdiff negative #hypkalemia/hypophosphatemia: repleted #Urinary obstruction Patient has failed trial of void Urology consulted: -repeat TOV today
[2020-05-07] MEDS: LIPASE/PROTEASE/AMYLASE 36,000 UNIT CAPSULE PO SCH (18:32)
--- NOTE | 2020-05-07 20:39 | PN ---
Physical Exam: SUBJECTIVE: Patient seen and examined at bedside. Endorses some shortness of breath overnight. OBJECTIVE: Vital Signs Period Temp Pulse Resp BP Sys/Christopher Pulse Ox Last 24 Hr 98 F-98.9 F 86-93 18-18 101-118/53-65 82-100 GENERAL: NAD HEAD: AT/NC EYES: EOMI Sclera Clear ENT: MMM NECK: Trachea midline, full range of motion, supple. LUNGS: CTAB. No wheezing rhonchi or rales HEART: RRR S1S2 No MRG ABDOMEN: NDNT, BS + EXTREMITIES: No CCE Laboratory Results - last 24 hr 05/07/20 05/07/20 07:14 07:14 WBC 5.3 RBC 2.88 L Hgb 8.5 L Hct 25.5 L MCV 88.4 MCH 29.6 MCHC 33.5 RDW 14.6 Plt Count 257 MPV 7.8 Sodium 139 Potassium 3.4 L Chloride 106 Carbon Dioxide 26 Anion Gap 6 L BUN 15.8 Creatinine 0.4 L Est GFR (CKD-EPI)AfAm 122.31 Est GFR (CKD-EPI)NonAf 105.53 Random Glucose 86 Calcium 8.4 L Phosphorus 3.4 Magnesium 1.8 Active Medications Generic Name Dose Route Start Last Admin Trade Name Freq PRN Reason Stop Dose Admin Acetaminophen 650 mg 05/06/20 09:36 05/06/20 23:10 Tylenol - PO 650 mg Q4H PRN Administration PAIN LEVEL 1-5 Eucalyptus/Menthol/Phenol/Sorbitol 1 each 04/30/20 17:02 Cepastat Lozenge - MM Q4H PRN SORE THROAT Amino Acids 1,000 mls @ 84 mls/hr 04/30/20 23:45 05/07/20 11:59 Clinimix - IV Not Given Q12H ADELINE Metronidazole 250 mg 05/07/20 14:00 05/07/20 13:44 Flagyl - PO 250 mg TID ADELINE Administration Multivitamins/Minerals/Vitamin C 1 tab 05/06/20 18:15 05/07/20 11:43 Tab-A-Vit - PO 1 tab DAILY ADELINE Administration Pancrelipase 1 cap 05/07/20 17:30 05/07/20 18:[address] 36,000 Units Capsule PO 1 cap TIDCM ADELINE Administration Pantoprazole Sodium 40 mg 05/07/20 10:00 05/07/20 11:43 Protonix - PO 40 mg DAILY ADELINE Administration Phenol/Menthol 1 spray 04/30/20 17:02 Chloraseptic - MM Q6HPO PRN SORE THROAT Simethicone 80 mg 05/07/20 14:00 05/07/20 17:32 Mylicon - PO 80 mg QID ADELINE Administration ASSESSMENT/PLAN: 69F w/ PMHx MS, sarcoidosis, HTN, HLD, recent diagnostic colonoscopy on 04/23/2020 presented with SBO and mesenteric edema. #Small bowel obstruction -Now POD#7 s/p ExLap with reduction internal hernia-Dr Duong NGElvis removed Surgery on board -GI on board ----> Started Flagyl for possible small intestinal bacterial overgrowth . Also Creon 40720 U TID with meals. -Analgesia -Clinimix discontinued -Diet advanced #HTN/HLD; Hold home meds, Resume when BP is above goal #Urinary retention Patient has failed trial of void. Dr Arora on board. Recs appreciated -repeat TOV #FEN -No Standing fluids -Replete Lytes PRN -Soft Diet #Prophylaxis DVT: SCDs Dispo -cont to monitor on med-surg Visit type - Emergency Visit Emergency Visit: Yes ED Registration Date: 04/25/20 Care time: The patient presented to the Emergency Department on the above date and was hospitalized for further evaluation of their emergent condition. - New Patient This patient is new to me today: No - Critical Care Critical Care patient: No - Discharge Referral Referred to [facility] No - Medication Review Med list reviewed for High Risk Meds patients 65 and older: Yes ATTENDING PHYSICIAN STATEMENT I saw and evaluated the patient. I reviewed the resident's note and discussed the case with the resident. I agree with the resident's findings and plan as documented. SUBJECTIVE: OBJECTIVE: ASSESSMENT AND PLAN:
[2020-05-07] MEDS ORDERED: PT OWN MED DRAWER 7, Y5N ONE (21:15)
[2020-05-07] MEDS: ACETAMINOPHEN 325 MG TABLET (FP) PO PRN (23:55)
[2020-05-08] MEDS: ACETAMINOPHEN 325 MG TABLET (FP) PO PRN (05:35)
[2020-05-08] MEDS: metroNIDAZOLE 250 MG TABLET PO SCH ×2 (05:35→13:12)
[2020-05-08 08:39] LABS: HEMATOCRIT 24.2 % (32.4-45.2); HEMOGLOBIN 8.3 GM/dL (10.7-15.3); MCH 30.5 pg (25.7-33.7); MCHC 34.4 g/dl (32.0-36.0); MEAN CELL VOLUME 88.6 fl (80-96); MEAN PLT VOLUME 7.8 fl (7.5-11.1); PLATELET COUNT 248 K/MM3 (134-434); RBC 2.73 M/mm3 (3.60-5.2); RDW 14.3 % (11.6-15.6); WHITE BLOOD COUNT 4.2 K/mm3 (4.0-10.0)
[2020-05-08 09:02] LABS: BLOOD UREA NITROGEN 13.2 mg/dL (7-18); CREATININE 0.5 mg/dL (0.55-1.3); MAGNESIUM 1.9 mg/dL (1.8-2.4); PHOSPHOROUS 3.2 mg/dL (2.5-4.9); POTASSIUM 3.7 mmol/L (3.5-5.1)
[2020-05-08] MEDS: PANTOPRAZOLE 40 MG TABLET PO SCH (09:50)
[2020-05-08] MEDS: SIMETHICONE 80 MG TAB.CHEW (FP) PO SCH ×2 (09:50→13:13)
[2020-05-08] MEDS: LIPASE/PROTEASE/AMYLASE 36,000 UNIT CAPSULE PO SCH ×2 (09:50→13:13)
[2020-05-08] MEDS: MULTIVITAMINS (DAILY MVI) TABLET (FP) PO SCH (09:50)
[2020-05-08] MEDS ORDERED: IRON SUCROSE INJECTION 200 MG in SODIUM CHLORIDE 90 ML IVPB ONE (11:15)
--- NOTE | 2020-05-08 13:19 | PN ---
Teaching Attending Note Name of Resident: Zelalem Rangel ATTENDING PHYSICIAN STATEMENT I saw and evaluated the patient. I reviewed the resident's note and discussed the case with the resident. I agree with the resident's findings and plan as documented. SUBJECTIVE: Seen and examined at bedside. Tolerating p.o., passing stool and urine and sta ble on room air. Reports abdominal discomfort due to distention. Cleared by surgery for discharge. Hemoglobin noted to be downtrending patient found to be mildly iron deficient, probably due to blood loss from surgery and repeated blood draws. Patient given 200 mg IV iron. Patient is medically cleared for discharge and can follow-up with surgery and PCP next week for suture removal and repeat labs OBJECTIVE Last Vital Signs Temp Pulse Resp BP Pulse Ox 98.6 F 88 18 94/56 L 95 05/08/20 05:39 05/08/20 10:00 05/08/20 10:00 05/08/20 10:00 05/08/20 10:00 PE: GEN: NAD HEENT: NC/AT [facility] RESP: CTAB CARDS: RRR, -MRG ABD: soft, nt/nd +BS EXT: No swelling/Edema Neuro: Non-focal, A&OX3 Labs/Imaging: reviewed ASSESSMENT/PLAN 69-year-old female with a history of MS, sarcoidosis, hypertension, hyperlipidemia recent diagnostic colonoscopy on 04/23/2020 presented with small bowel obstruction and mesenteric edema. Patient ended up having laparotomy for small bowel obstruction and had extended postoperative course due to long- lasting postoperative ileus. Patient had some bloating after resumption of bowel movements per GI potentially concerning for small bacterial overgrowth. Patient will be discharged on 1 week of Flagyl 250 mg 3 times daily, pantoprazole for 2 weeks, Creon for 2 weeks, and PRN simethicone. She will follow-up with surgery next week for staple removal and GI within the next 2 weeks for further management of her bowel obstruction. Patient noted to have mild iron deficiency anemia likely caused by postoperative blood loss and daily lab draws. Patient was given 200 mg of IV iron and should have a repeat CBC in 1 week
--- NOTE | 2020-05-08 14:27 | DS ---
Physical Exam: SUBJECTIVE: Patient seen and examined at bedside. Endorse abdominal discomfort due to distention. Cleared by surgery for discharge. OBJECTIVE: Vital Signs Period Temp Pulse Resp BP Sys/Christopher Pulse Ox Last 24 Hr 98.2 F-98.7 F 87-92 16-18 94-111/44-60 95-100 PHYSICAL EXAM GENERAL: No acute distress HEAD: AT/NC EYES: EOMI Sclera Clear ENT: MMM LUNGS: CTAB. No wheezing rhonchi or rales HEART: RRR S1S2 No MRG ABDOMEN: NDNT, BS + EXTREMITIES: No CCE LABS Laboratory Results - last 24 hr 05/06/20 05/08/20 05/08/20 14:15 06:58 06:58 WBC 4.2 RBC 2.73 L Hgb 8.3 L Hct 24.2 L MCV 88.6 MCH 30.5 MCHC 34.4 RDW 14.3 Plt Count 248 MPV 7.8 Retic Count Sodium 138 Potassium 3.7 Chloride 104 Carbon Dioxide 29 Anion Gap 5 L BUN 13.2 Creatinine 0.5 L Est GFR (CKD-EPI)AfAm 113.65 Est GFR (CKD-EPI)NonAf 98.06 Random Glucose 92 Calcium 9.0 Phosphorus 3.2 Magnesium 1.9 Iron 42 L TIBC 254 Iron Saturation 16 L Unsaturated IBC 212 Ferritin 301.9 COVID-19 (JULIA) Not detected 05/08/20 06:58 WBC RBC Hgb Hct MCV MCH MCHC RDW Plt Count MPV Retic Count 1.89 H Sodium Potassium Chloride Carbon Dioxide Anion Gap BUN Creatinine Est GFR (CKD-EPI)AfAm Est GFR (CKD-EPI)NonAf Random Glucose Calcium Phosphorus Magnesium Iron TIBC Iron Saturation Unsaturated IBC Ferritin COVID-19 (JULIA) HOSPITAL COURSE: Date of Admission:04/25/20 Date of Discharge: 05/08/20 Discharge Summary Problems reviewed: Yes Reason For Visit: ABD/PAIN/ALL QUADRANTS/SMALL BOWEL OBSTRUCTION Current Active Problems SBO (small bowel obstruction) (Acute) Condition: Improved - Instructions Diet, Activity, Other Instructions: You presented to the hospital due to abdominal pain. You were found to have an obstruction in your small intestines. You underwent surgery for this. Please take the following medications: -Flagyl 250 mg THREE times per day for 6 more days. your next dose is tonight (05/08/2020) and then 3 times per day after tonight. -Creon 87292 Units THREE times a day with meals. -Simethicone as needed for bloating -Pantoprazole 40 mg Daily Please STOP taking your Irbesartan (blood pressure medication) and Aldactone as your blood pressure has been on the low end. Please resume these medications once your primary care doctor assesses you in 1 week and decides whether to restart them. Please follow up with Dr Monsalve in 2 weeks. Please consume a low fiber lactose free diet. You will need to have a blood test performed in 1 week to check your red blood cell count (CBC). Please follow up with your primary care doctor for this. Dr. Duong Discharge Instructions Dear STEFANIE FATIMA, Post Operative Instructions Physical activity Resume your normal everyday activity as tolerated no heavy lifting or exercise until seen by your surgeon. You may walk unlimited amounts of and climb stairs. You may resume driving the car when you feel safe and comfortable behind the wheel an no longer taking narcotics. Wound care You may shower but do not submerge the incisions. Do not apply lotion or ointments to incisions. The clay will be removed by your surgeon at your follow up visit. Diet There are no dietary restrictions. Eat healthy, low-fiber foods. Drink 6 to 8 glasses of liquid each day. This will assist in keeping your bowels are regular. Pain management You may take Tylenol or acetaminophen. Any pain prescription medication ordered should be taken as prescribed for moderate to severe pain. Call Dr. Duong for any of the following: Severe pain not relieved by medication Fever of 101 or higher Excessive bleeding or drainage on dressing Inability to urinate If you experience any chest pain or shortness of breath please seek emergency treatment Call the office at [phone] for a post operative appointment in 7 - 10 days. Tylenol cbc next week Referrals: Lucian Duong MD [Staff Physician] - 1 Week Conor Monsalve MD [Staff Physician] - 2 Weeks Disposition: [facility]/HOME HEALTH CARE - Home Medications Comprehensive Discharge Medication List: Ambulatory Orders Alendronate Sodium [Binosto] 70 mg PO DAILY 11/16/14 Clopidogrel Bisulfate [Plavix -] 75 mg PO DAILY 11/16/14 Pramipexole Di-HCl [Mirapex] 0.125 mg PO BID 11/16/14 Simvastatin [Zocor -] 20 mg PO DAILY 11/16/14 Ondansetron [Zofran *Odt*] 4 mg SL TID PRN 04/25/20 Lipase/Protease/Amylase [Haley Dias 36,000 Units Capsule] 1 cap PO TIDCM #42 capsule. 05/08/20 Miscellaneous Medical Supply [Outpatient Order] 1 each ASDIR #1 misc 05/08/20 Pantoprazole Sodium [Protonix -] 40 mg PO DAILY #14 tablet.ec 05/08/20 metroNIDAZOLE [Flagyl -] 250 mg PO TID #19 tablet 05/08/20 - Discharge Referral Referred to [facility] Med P.C.: No ATTENDING PHYSICIAN STATEMENT I saw and evaluated the patient. I reviewed the resident's note and discussed the case with the resident. I agree with the resident's findings and plan as documented. SUBJECTIVE: OBJECTIVE: ASSESSMENT AND PLAN:
[2020-05-08 15:14] VITALS: BP 117/65; PULSE 92; TEMP 98
== END 2020-05-08 17:30 | disposition home health service (06) | DRG 357 ==
LOC: JER 18:29 → JERBED 21:38 → J8W 04-26 20:44 → J5S 05-04 18:23
PROVIDERS: ADMIT Internal Medicine; ATTEND Internal Medicine
PROC: 0DQV0ZZ Repair Mesentery, Open Approach (ICD-10-PCS; 2020-04-30)
PROC: 0JNC0ZZ Release Pelvic Region Subcutaneous Tissue and Fascia, Open Approach (ICD-10-PCS; 2020-04-30)
PROC: 0D9670Z Drainage of Stomach with Drainage Device, Via Natural or Artificial Opening (ICD-10-PCS; principal; 2020-04-30 12:30)
DX: K56.609 Unspecified intestinal obstruction, unspecified as to partial versus complete obstruction (principal); J98.11 Atelectasis; K91.30 Postprocedural intestinal obstruction, unspecified as to partial versus complete; E78.5 Hyperlipidemia, unspecified; G35 Multiple sclerosis; E83.52 Hypercalcemia; I10 Essential (primary) hypertension; N13.9 Obstructive and reflux uropathy, unspecified; E87.5 Hyperkalemia; E83.39 Other disorders of phosphorus metabolism; D86.9 Sarcoidosis, unspecified; I25.10 Atherosclerotic heart disease of native coronary artery without angina pectoris; D64.9 Anemia, unspecified; D72.829 Elevated white blood cell count, unspecified; K40.90 Unilateral inguinal hernia, without obstruction or gangrene, not specified as recurrent; K46.9 Unspecified abdominal hernia without obstruction or gangrene; K80.20 Calculus of gallbladder without cholecystitis without obstruction; E83.42 Hypomagnesemia; Y83.8 Other surgical procedures as the cause of abnormal reaction of the patient, or of later complication, without mention of misadventure at the time of the procedure; D50.0 Iron deficiency anemia secondary to blood loss (chronic)
CPT/HCPCS: 36415; 71045-TC-FY; 74019-TC-FY; 74176-TC; 80048; 80053; 81003; 82550; 82728; 82962; 83540; 83550; 83605; 83735; 84100; 84484; 85025; 85027; 85045; 85610; 85730; 86850; 86900; 86901; 86922; 87086; 87324; 87449; 93005; 93010; 94010; 94760; 97116-GP; 97161-GP; 99285-25; J0131; J1756; U0003

== ENCOUNTER 2022-03-09 12:08 | Observation (INO) | payer OTHER ==
[2022-03-09 12:56] VITALS: BMI 23.3
[2022-03-09 14:40] LABS: BASO % 0.4 % (0-2.0); EOS % 0.7 % (0-4.5); HEMATOCRIT 32.2 % (32.4-45.2); HEMOGLOBIN 10.8 GM/dL (10.7-15.3); LYMPH % 8.4 % (8-40); MCH 30.2 pg (25.7-33.7); MCHC 33.5 g/dl (32.0-36.0); MEAN CELL VOLUME 90.4 fl (80-96); MEAN PLT VOLUME 8.4 fl (7.5-11.1); MONO % 14.3 % (3.8-10.2); NEUT % 76.2 % (42.8-82.8); PLATELET COUNT 222 10^3/uL (134-434); RBC 3.56 M/mm3 (3.60-5.2); RDW 15.1 % (11.6-15.6); WHITE BLOOD COUNT 3.9 K/mm3 (4.0-10.0)
[2022-03-09 14:49] LABS: INR 1.08 (0.83-1.09); PROTHROMBIN TIME (PATIENT) 12.4 SEC (9.7-13.0)
[2022-03-09 15:06] LABS: CHLORIDE 103 mmol/L (98-107); SODIUM 136 mmol/L (136-145)
[2022-03-09 15:09] LABS: ALBUMIN 3.7 g/dl (3.4-5.0); ANION GAP 9 MMOL/L (8-16); BLOOD UREA NITROGEN 9.8 mg/dL (7-18); CO2 25 mmol/L (21-32); GLUCOSE,RANDOM 76 mg/dL (74-106)
[2022-03-09 15:11] LABS: BILIRUBIN,DIRECT 0.1 mg/dL (0.0-0.2)
[2022-03-09 15:12] LABS: CREATININE 0.7 mg/dL (0.55-1.3); SGOT/AST 79 U/L (15-37); SGPT/ALT 59 U/L (13-61)
[2022-03-09 15:13] LABS: TOT PROT 7.5 g/dl (6.4-8.2)
[2022-03-09 15:14] LABS: BILIRUBIN,TOTAL 0.7 mg/dL (0.2-1)
[2022-03-09 15:15] LABS: ALK PHOS 78 U/L (45-117)
[2022-03-09 15:16] LABS: LDH 524 U/L (84-246)
[2022-03-09] MEDS ORDERED: BEBTELOVIMAB (EUA) 175 MG/2 ML VIAL IVPUSH ONE ×2 (17:43→17:59)
[2022-03-09 19:05] VITALS: BP 132/75; PULSE 102; RESP 19; TEMP 98.2
== END 2022-03-09 20:59 | disposition home or self-care (01) ==
LOC: JER 12:08 → UNDOADMOB 16:20 → INTOOBSV 16:20 → JERBED 16:20
PROVIDERS: ADMIT Internal Medicine; ATTEND Internal Medicine
PROC: 3E033GC Introduction of Other Therapeutic Substance into Peripheral Vein, Percutaneous Approach (ICD-10-PCS; principal; 2022-03-09)
DX: U07.1 COVID-19 (principal); D86.9 Sarcoidosis, unspecified; E78.00 Pure hypercholesterolemia, unspecified; I10 Essential (primary) hypertension; Z86.73 Personal history of transient ischemic attack (TIA), and cerebral infarction without residual deficits; R79.89 Other specified abnormal findings of blood chemistry; M81.0 Age-related osteoporosis without current pathological fracture; G35 Multiple sclerosis
CPT/HCPCS: 36415; 71045-TC-FY; 71250-TC; 80053; 82248; 82728; 83615; 85025; 85610; 85730; 86140; 87040; 87804; 93005; 93010; 96374; 99285-25; C9803-CS; G0378; M0222; Q0222; U0003; U0005

== ENCOUNTER 2022-09-08 12:35 | Emergency (ER) | payer OTHER ==
[2022-09-08 12:42] VITALS: BP 130/72; PULSE 108; RESP 18; TEMP 98.3; BMI 25.4
[2022-09-08] MEDS ORDERED: ACETAMINOPHEN 500 MG TABLET (FP) PO ONE (13:15)
[2022-09-08] MEDS ORDERED: ACETAMINOPHEN 500 MG TABLET (FP) ONE (13:19)
== END 2022-09-08 15:39 | disposition home or self-care (01) ==
LOC: JERFT 12:35 → JER 12:35 → JERFT 15:39
DX: M25.551 Pain in right hip (principal); M25.511 Pain in right shoulder; W19.XXXA Unspecified fall, initial encounter
CPT/HCPCS: 72100-TC-FY; 72170-TC-FY; 73030-TC-RT-FY; 73060-TC-RT-FY; 73502-TC-RT-FY; 99284-25

== ENCOUNTER 2023-12-16 13:40 | Inpatient (IN) | payer OTHER ==
[2023-12-16] MEDS ORDERED: ACETAMINOPHEN INJECTION 100 ML IVPB ONE (14:35)
[2023-12-16] MEDS: ACETAMINOPHEN 1000 MG/100 ML BAG IVPB ONE (15:08)
[2023-12-16] MEDS ORDERED: KETOROLAC TROMETHAMINE 15 MG/ML VIAL ONE (16:07)
[2023-12-16] MEDS ORDERED: HYDROmorphone HCl 2 MG/ML VIAL ONE (16:07)
[2023-12-16 16:09] LABS: BASO % 0.3 % (0-2.0); EOS % 2.6 % (0-4.5); HEMATOCRIT 32.2 % (32.4-45.2); HEMOGLOBIN 10.7 GM/dL (10.7-15.3); MCH 29.5 pg (25.7-33.7); MCHC 33.1 g/dl (32.0-36.0); MEAN CELL VOLUME 89.2 fl (80-96); MEAN PLT VOLUME 7.3 fl (7.5-11.1); MONO % 13.6 % (3.8-10.2); NEUT % 71.5 % (42.8-82.8); PLATELET COUNT 264 10^3/uL (134-434); RBC 3.61 M/mm3 (3.60-5.2); RDW 13.8 % (11.6-15.6); WHITE BLOOD COUNT 4.7 K/mm3 (4.0-10.0)
[2023-12-16 16:29] LABS: POTASSIUM 3.7 mmol/L (3.5-5.1)
[2023-12-16 16:31] LABS: CALCIUM 10.3 mg/dL (8.5-10.1)
[2023-12-16 16:32] LABS: ALBUMIN 3.5 g/dl (3.4-5.0); BLOOD UREA NITROGEN 27.2 mg/dL (7-18)
[2023-12-16 16:35] LABS: CREATININE 0.8 mg/dL (0.55-1.3)
[2023-12-16 16:36] LABS: BILIRUBIN,TOTAL 0.5 mg/dL (0.2-1); TOT PROT 7.1 g/dl (6.4-8.2)
[2023-12-16] MEDS: HYDROmorphone HCl 2 MG/ML VIAL IVPUSH ONE (16:44)
[2023-12-16] MEDS: KETOROLAC TROMETHAMINE 15 MG/ML VIAL IVPUSH ONE (16:45)
[2023-12-16] MEDS: ACETAMINOPHEN 1000 MG/100 ML BAG IVPB PRN (22:54)
[2023-12-17 02:39] VITALS: BMI 22.1
[2023-12-17] MEDS: ENOXAPARIN NA (PORCINE) 40 MG/0.4 ML DISP.SYRIN SQ SCH (10:34)
[2023-12-17] MEDS: GABAPENTIN 300 MG CAPSULE PO SCH (11:45)
[2023-12-17] MEDS: SACUBITRIL/VALSARTAN 24 MG-26 MG TABLET PO SCH (11:45)
[2023-12-17 16:58] LABS: POTASSIUM 4.2 mmol/L (3.5-5.1)
[2023-12-17 17:00] LABS: CALCIUM 9.2 mg/dL (8.5-10.1)
[2023-12-17 17:01] LABS: BLOOD UREA NITROGEN 21.4 mg/dL (7-18)
[2023-12-17 17:04] LABS: CREATININE 0.7 mg/dL (0.55-1.3)
[2023-12-17 17:05] LABS: TOT PROT 5.8 g/dl (6.4-8.2)
[2023-12-17 17:06] LABS: BILIRUBIN,TOTAL 0.4 mg/dL (0.2-1)
[2023-12-17 17:07] LABS: ALBUMIN 2.8 g/dl (3.4-5.0)
[2023-12-18 10:21] LABS: POTASSIUM 4.4 mmol/L (3.5-5.1)
[2023-12-18 10:23] LABS: ALBUMIN 3.2 g/dl (3.4-5.0); BLOOD UREA NITROGEN 14.3 mg/dL (7-18); CALCIUM 9.6 mg/dL (8.5-10.1)
[2023-12-18 10:27] LABS: CREATININE 0.7 mg/dL (0.55-1.3)
[2023-12-18 10:28] LABS: BILIRUBIN,TOTAL 0.4 mg/dL (0.2-1); TOT PROT 6.5 g/dl (6.4-8.2)
[2023-12-18] MEDS: ACETAMINOPHEN 325 MG TABLET (FP) PO SCH (13:16)
[2023-12-18] MEDS: prednisoLONE ACETATE 1% OPHTH SUSP 5 ML BOTTLE OU SCH (18:19)
[2023-12-18] MEDS: ATORVASTATIN CA 10 MG TABLET (FP) PO SCH (21:08)
[2023-12-19] MEDS: BENZOCAINE/MENTH/CETYLPYRD CL 1 EACH LOZENGE MM PRN (04:23)
[2023-12-19 08:52] LABS: POTASSIUM 4.4 mmol/L (3.5-5.1)
[2023-12-19 09:00] LABS: ALBUMIN 2.9 g/dl (3.4-5.0); BLOOD UREA NITROGEN 19.2 mg/dL (7-18); CALCIUM 9.1 mg/dL (8.5-10.1)
[2023-12-19 09:04] LABS: CREATININE 0.7 mg/dL (0.55-1.3)
[2023-12-19 09:05] LABS: BILIRUBIN,TOTAL 0.4 mg/dL (0.2-1); TOT PROT 5.8 g/dl (6.4-8.2)
[2023-12-19] MEDS: PATIENT'S OWN MEDICATION (NON-FORMULARY) (Meloxicam [Meloxicam] 15 MG Tablet) PO SCH (10:31)
[2023-12-19] MEDS: ASPIRIN 81 MG CHEWABLE TABLETS PO SCH (10:35)
[2023-12-19] MEDS: ACETAMINOPHEN 500 MG TABLET (FP) PO SCH (11:16)
[2023-12-19] MEDS: oxyCODONE HCL 5 MG TABLET PO PRN (14:06)
[2023-12-19] MEDS: GABAPENTIN 300 MG CAPSULE PO SCH (14:32)
[2023-12-19] MEDS: NAPROXEN 375 MG TABLET PO SCH (14:32)
[2023-12-19] MEDS ORDERED: morphine SULFATE IMMEDIATE RELEASE 30 MG TAB PO ONE (16:37)
[2023-12-19] MEDS: morphine SULFATE 10 MG/5 ML UNIT-DOSE CUP PO ONE ×2 (17:52→18:08)
[2023-12-19] MEDS: LIDOCAINE 4% PATCH TP SCH (21:25)
[2023-12-20 08:05] LABS: HEMATOCRIT 29.8 % (32.4-45.2); MCHC 33.5 g/dl (32.0-36.0); MEAN CELL VOLUME 89.5 fl (80-96); MEAN PLT VOLUME 8.2 fl (7.5-11.1); PLATELET COUNT 234 10^3/uL (134-434); RBC 3.33 M/mm3 (3.60-5.2); RDW 13.8 % (11.6-15.6)
[2023-12-20 08:21] LABS: POTASSIUM 4.5 mmol/L (3.5-5.1)
[2023-12-20 08:22] LABS: CALCIUM 9.3 mg/dL (8.5-10.1)
[2023-12-20 08:26] LABS: CREATININE 0.7 mg/dL (0.55-1.3)
[2023-12-20] MEDS: LIDOCAINE PATCH REMOVAL MC SCH (09:29)
[2023-12-20] MEDS: ALPRAZolam 1 MG TABLET PO PRN (12:20)
[2023-12-21 07:43] LABS: HEMATOCRIT 27.7 % (32.4-45.2); HEMOGLOBIN 9.3 GM/dL (10.7-15.3); MCH 30.2 pg (25.7-33.7); MCHC 33.6 g/dl (32.0-36.0); MEAN CELL VOLUME 89.9 fl (80-96); MEAN PLT VOLUME 8.1 fl (7.5-11.1); PLATELET COUNT 244 10^3/uL (134-434); RBC 3.09 M/mm3 (3.60-5.2); RDW 14.3 % (11.6-15.6)
[2023-12-21 07:56] LABS: POTASSIUM 4.5 mmol/L (3.5-5.1)
[2023-12-21 07:57] LABS: CALCIUM 8.7 mg/dL (8.5-10.1)
[2023-12-21 07:58] LABS: BLOOD UREA NITROGEN 26.5 mg/dL (7-18)
[2023-12-21 08:01] LABS: CREATININE 0.8 mg/dL (0.55-1.3)
[2023-12-21] MEDS: CYCLOPENTOLATE HCL 1% OPHTH SOLN 2 ML BOTTLE OU SCH (17:10)
[2023-12-22] MEDS: FAMOTIDINE 20 MG TABLET PO ONE (00:33)
[2023-12-22] MEDS: PANTOPRAZOLE 40 MG TABLET PO ONE (00:34)
[2023-12-24] MEDS ORDERED: INSULIN ASPART SLIDING SCALE (NOVOLOG) 1 VIAL SQ ONE (06:54)
[2023-12-24 09:09] LABS: BASO % 0.2 % (0-2.0); EOS % 2.7 % (0-4.5); HEMATOCRIT 29.3 % (32.4-45.2); HEMOGLOBIN 9.8 GM/dL (10.7-15.3); LYMPH % 8.1 % (8-40); MCH 30.2 pg (25.7-33.7); MCHC 33.4 g/dl (32.0-36.0); MEAN CELL VOLUME 90.4 fl (80-96); MEAN PLT VOLUME 8.5 fl (7.5-11.1); MONO % 11.3 % (3.8-10.2); NEUT % 77.7 % (42.8-82.8); PLATELET COUNT 238 10^3/uL (134-434); RBC 3.23 M/mm3 (3.60-5.2); RDW 14.2 % (11.6-15.6); WHITE BLOOD COUNT 5.5 K/mm3 (4.0-10.0)
[2023-12-24 09:23] LABS: POTASSIUM 4.8 mmol/L (3.5-5.1)
[2023-12-24 09:27] LABS: CALCIUM 9.1 mg/dL (8.5-10.1)
[2023-12-24 09:32] LABS: CREATININE 0.5 mg/dL (0.55-1.3)
[2023-12-26 15:25] VITALS: RESP 18
[2023-12-27] MEDS: MAG HYDROX/AL HYDROX/SIMETH 30 ML UNIT-DOSE CUP PO ONE (00:55)
[2023-12-27 04:24] VITALS: BP 140/65; PULSE 110; TEMP 98.8
== END 2023-12-27 12:56 | disposition short-term general hospital (02) | DRG 552 ==
LOC: JER 13:40 → JERBED 17:45 → J6S 23:35 → OBSVTOIN 12-18 09:48
PROVIDERS: ATTEND Internal Medicine
DX: M48.061 Spinal stenosis, lumbar region without neurogenic claudication (principal); I50.22 Chronic systolic (congestive) heart failure; I42.9 Cardiomyopathy, unspecified; M47.26 Other spondylosis with radiculopathy, lumbar region; I11.0 Hypertensive heart disease with heart failure; G35 Multiple sclerosis; M81.0 Age-related osteoporosis without current pathological fracture; E78.5 Hyperlipidemia, unspecified; E83.52 Hypercalcemia; M54.50 Low back pain, unspecified
CPT/HCPCS: 36415; 70450-TC; 72131-TC; 72148-TC; 72170-TC-FY; 72192-TC; 73502-TC-RT-FY; 80048; 80053; 82306; 82310; 83970; 85025; 85027; 93005; 93010; 97116-GP; 97162-GP; 99285-25; G0378; J0131

== ENCOUNTER → 2024-10-02 | Day surgery (SDC) | payer OTHER | END | disposition home or self-care (01) | LOC: JMAMMO-SUR 12:13 | PROVIDERS: ATTEND Obstetrics & Gynecology | PROC: 0H9U3ZX Drainage of Left Breast, Percutaneous Approach, Diagnostic (ICD-10-PCS; principal; 2024-10-02) | DX: D24.2 Benign neoplasm of left breast (principal) | CPT/HCPCS: 19083; 76942-TC; 77065-TC; 87899; 88305-TC; A4648 ==

== ENCOUNTER 2025-01-02 20:28 | Emergency (ER) | payer OTHER ==
[2025-01-02 20:40] VITALS: BP 129/69; PULSE 96; RESP 18; TEMP 98.1; BMI 21.1
== END 2025-01-02 21:51 | disposition home or self-care (01) ==
LOC: JER 20:28
DX: R05.9 Cough, unspecified (principal); R91.1 Solitary pulmonary nodule
CPT/HCPCS: 99283-25

== ENCOUNTER 2025-02-04 15:09 | Emergency (ER) | payer OTHER ==
[2025-02-04 15:20] VITALS: TEMP 98.5; BMI 21.9
[2025-02-04] MEDS ORDERED: ACETAMINOPHEN INJECTION 100 ML ONE (16:57)
[2025-02-04] MEDS: ACETAMINOPHEN 1000 MG/100 ML BAG IVPB ONE (17:54)
[2025-02-04 18:20] LABS: BASOPHILS # 0.02 x10^3/uL (0.01-0.08); EOSINOPHIL % 2.2 % (0.7-5.8); EOSINOPHILS # 0.07 x10^3/uL (0.04-0.36); HEMATOCRIT 30.9 % (34.1-44.9); HEMOGLOBIN 9.9 g/dL (11.2-15.7); MEAN CELL VOLUME 92.5 fl (79.4-94.8); MEAN PLT VOLUME 10.2 fl (9.4-12.3); MONOCYTE # 0.51 x10^3/uL (0.24-0.86); MONOCYTE % 16.2 % (4.7-12.5); PLATELET COUNT 186 x10^3/uL (182-369); RDW 13.3 % (12.4-16.6)
[2025-02-04 18:26] LABS: INR 1.04 (0.83-1.09); PROTHROMBIN TIME (PATIENT) 11.3 SEC (9.7-13.0)
[2025-02-04 18:29] LABS: ACTIVATED PTT 28.6 SECONDS (25.2-36.5)
[2025-02-04 18:38] LABS: POTASSIUM 3.5 mmol/L (3.5-5.1)
[2025-02-04 18:45] LABS: ALBUMIN 3.6 g/dl (3.4-5.0); CALCIUM 9.7 mg/dL (8.5-10.1)
[2025-02-04 18:46] LABS: BLOOD UREA NITROGEN 13.3 mg/dL (7-18); MAGNESIUM 2.3 mg/dL (1.8-2.4)
[2025-02-04 18:49] LABS: CREATININE 0.6 mg/dL (0.55-1.3)
[2025-02-04 18:51] LABS: BILIRUBIN,TOTAL 0.8 mg/dL (0.2-1); TOT PROT 6.6 g/dl (6.4-8.2)
[2025-02-04 19:34] VITALS: BP 113/67; PULSE 90; RESP 16
[2025-02-04 21:59] LABS: EPI CELLS 34 /uL (0-25.1); HYALINE CASTS 1 /uL (0-3.1); PH,URINE 5.5 (5.0-8.0); URINE APPEARANCE CLEAR; URINE BACTERIA 127 /uL (0-1359); URINE BILIRUBIN NEGATIVE (NEGATIVE); URINE COLOR YELLOW; URINE GLUCOSE (UA) NEGATIVE (NEGATIVE); URINE KETONE TRACE (NEGATIVE); URINE LEUK ESTERASE 1+ (NEGATIVE); URINE NITRITE NEGATIVE (NEGATIVE); URINE PROTEIN NEGATIVE (NEGATIVE); URINE RBC 8 /uL (0-23.9); URINE UROBILINOGEN 0.2 mg/dL (0.2-1.0); URINE WBC 49 /uL (0-25.8)
== END 2025-02-04 23:01 | disposition home or self-care (01) ==
LOC: JER 15:09
PROC: 3E033NZ Introduction of Analgesics, Hypnotics, Sedatives into Peripheral Vein, Percutaneous Approach (ICD-10-PCS; principal; 2025-02-04)
DX: R10.9 Unspecified abdominal pain (principal); M25.511 Pain in right shoulder; G89.29 Other chronic pain
CPT/HCPCS: 0241U-QW; 36415; 71045-TC-FY; 73030-TC-RT-FY; 74177-TC; 80053; 81003; 83690; 83735; 84484; 85025; 85610; 85730; 87086; 93005; 93010; 96374; 99285-25; Q9967

== ENCOUNTER 2025-05-30 17:57 | Inpatient (IN) | payer OTHER ==
[2025-05-30] MEDS ORDERED: ACETAMINOPHEN INJECTION 100 ML ONE (20:20)
[2025-05-30 20:24] LABS: ABSOLUTE IMMATURE GRANULOCYTES 0.01 x10^3/uL (0.0-0.031); BASOPHILS # 0.02 x10^3/uL (0.01-0.08); EOSINOPHIL % 1.9 % (0.7-5.8); EOSINOPHILS # 0.08 x10^3/uL (0.04-0.36); MCHC 31.5 g/dl (32.2-35.5); MEAN CELL VOLUME 95.1 fl (79.4-94.8); MEAN PLT VOLUME 9.7 fl (9.4-12.3); MONOCYTE # 0.64 x10^3/uL (0.24-0.86); MONOCYTE % 15.6 % (4.7-12.5); RDW 13.2 % (12.4-16.6)
[2025-05-30] MEDS: ACETAMINOPHEN 1000 MG/100 ML BAG IVPB ONE (20:24)
[2025-05-30 20:36] LABS: INR 1.05 (0.83-1.09); PROTHROMBIN TIME (PATIENT) 11.4 SEC (9.7-13.0)
[2025-05-30 20:39] LABS: ACTIVATED PTT 27.1 SECONDS (25.2-36.5)
[2025-05-30 21:07] LABS: GLUCOSE,RANDOM 94.0 mg/dL (74-106); TOT PROT 6.4 g/dl (6.4-8.2)
[2025-05-30 21:09] LABS: CO2 25.0 mmol/L (21-32)
[2025-05-30 21:10] LABS: ALK PHOS 71.0 U/L (40-150)
[2025-05-30 21:13] LABS: CREATININE 0.66 mg/dL (0.55-1.3); SGOT/AST 35.0 U/L (5-34); SGPT/ALT 21.0 U/L (0-55)
[2025-05-30 22:28] LABS: HIV INTERPRETATION NEGATIVE (NEGATIVE)
[2025-05-30 22:30] LABS: HCV DIAGNOSTIC IN-HOUSE W/RFLX NON-REACTIVE (NONREACTIVE)
[2025-05-31 02:21] VITALS: BMI 22.1
[2025-05-31] MEDS: ACETAMINOPHEN 325 MG TABLET (FP) PO PRN (08:02)
[2025-05-31 09:09] LABS: ABSOLUTE IMMATURE GRANULOCYTES 0.00 x10^3/uL (0.0-0.031); BASOPHILS # 0.03 x10^3/uL (0.01-0.08); EOSINOPHIL % 5.0 % (0.7-5.8); EOSINOPHILS # 0.13 x10^3/uL (0.04-0.36); MCHC 31.4 g/dl (32.2-35.5); MEAN CELL VOLUME 93.3 fl (79.4-94.8); MEAN PLT VOLUME 10.1 fl (9.4-12.3); MONOCYTE # 0.42 x10^3/uL (0.24-0.86); MONOCYTE % 16.0 % (4.7-12.5); RDW 13.2 % (12.4-16.6)
[2025-05-31] MEDS: SACUBITRIL/VALSARTAN 24 MG-26 MG TABLET PO SCH (09:47)
[2025-05-31] MEDS: PRAMIPEXOLE DIHYDROCHLORIDE 0.5 MG TABLET PO SCH (09:47)
[2025-05-31] MEDS: SPIRONOLACTONE 25 MG TABLET PO SCH (09:47)
[2025-05-31] MEDS: MULTIVITAMINS (DAILY MVI) TABLET (FP) PO SCH (09:48)
[2025-05-31] MEDS: GABAPENTIN 300 MG CAPSULE PO SCH (09:48)
[2025-05-31 10:08] LABS: GLUCOSE,RANDOM 75.0 mg/dL (74-106)
[2025-05-31 10:09] LABS: TOT PROT 5.7 g/dl (6.4-8.2)
[2025-05-31 10:10] LABS: CO2 26.0 mmol/L (21-32)
[2025-05-31 10:11] LABS: ALK PHOS 67.0 U/L (40-150)
[2025-05-31 10:14] LABS: SGOT/AST 27.0 U/L (5-34); SGPT/ALT 19.0 U/L (0-55)
[2025-05-31 10:15] LABS: CREATININE 0.62 mg/dL (0.55-1.3)
[2025-05-31] MEDS ORDERED: LIDOCAINE 4% PATCH TP SCH (10:45)
[2025-05-31] MEDS: LIDOCAINE 4% PATCH TP SCH ×2 (11:40→12:44)
[2025-05-31] MEDS: CHOLECALCIFEROL (VIT D3) 5000 UNITS (125 MCG) CAP PO SCH (11:52)
[2025-05-31] MEDS: PATIENT'S OWN MEDICATION (NON-FORMULARY) (Cholecalciferol (Vitamin D3) [Vitamin D3] 1,250 PO SCH (11:54)
[2025-05-31 14:32] LABS: URINE APPEARANCE TURBID; URINE BILIRUBIN NEGATIVE (NEGATIVE); URINE COLOR YELLOW; URINE GLUCOSE (UA) NEGATIVE (NEGATIVE); URINE KETONE NEGATIVE (NEGATIVE); URINE PROTEIN TRACE (NEGATIVE); URINE UROBILINOGEN 0.2 mg/dL (0.2-1.0)
[2025-05-31 14:33] LABS: URINE LEUK ESTERASE 1+ (NEGATIVE); URINE NITRITE NEGATIVE (NEGATIVE)
[2025-05-31] MEDS: ATORVASTATIN CA 10 MG TABLET (FP) PO SCH (21:33)
[2025-05-31] MEDS: LIDOCAINE PATCH REMOVAL MC SCH ×2 (21:36)
[2025-05-31] MEDS ORDERED: LIDOCAINE PATCH REMOVAL MC SCH (22:00)
[2025-06-01] MEDS: ENOXAPARIN NA (PORCINE) 40 MG/0.4 ML DISP.SYRIN SQ SCH (16:13)
[2025-06-02] MEDS: LIDOCAINE 5% TOPICAL PATCH TP SCH (17:30)
[2025-06-02] MEDS: LIDOCAINE PATCH REMOVAL MC SCH (22:08)
[2025-06-03] MEDS: POLYETHYLENE GLYCOL (HEALTHYLAX) 3350 17 GM PACKET PO ONE (13:45)
[2025-06-03] MEDS: [UNRECOGNIZED DRUG - OTHER] PO SCH (14:42)
[2025-06-03] MEDS: TERIFLUNOMIDE 14 MG PO SCH (14:42)
[2025-06-03] MEDS: MAG HYDROX/AL HYDROX/SIMETH 30 ML UNIT-DOSE CUP PO ONE (21:28)
[2025-06-04 07:38] LABS: ABSOLUTE IMMATURE GRANULOCYTES 0.00 x10^3/uL (0.0-0.031); BASOPHILS # 0.03 x10^3/uL (0.01-0.08); EOSINOPHIL % 4.2 % (0.7-5.8); EOSINOPHILS # 0.13 x10^3/uL (0.04-0.36); MCHC 31.8 g/dl (32.2-35.5); MEAN CELL VOLUME 93.5 fl (79.4-94.8); MEAN PLT VOLUME 10.1 fl (9.4-12.3); MONOCYTE # 0.46 x10^3/uL (0.24-0.86); MONOCYTE % 14.8 % (4.7-12.5); RDW 13.4 % (12.4-16.6)
[2025-06-04 08:11] LABS: GLUCOSE,RANDOM 94.0 mg/dL (74-106)
[2025-06-04 08:12] LABS: TOT PROT 5.5 g/dl (6.4-8.2)
[2025-06-04 08:13] LABS: CO2 25.0 mmol/L (21-32)
[2025-06-04 08:14] LABS: ALK PHOS 70.0 U/L (40-150)
[2025-06-04 08:17] LABS: SGOT/AST 39.0 U/L (5-34); SGPT/ALT 33.0 U/L (0-55)
[2025-06-04 08:18] LABS: CREATININE 0.53 mg/dL (0.55-1.3)
[2025-06-04] MEDS: guaiFENesin 200 MG/10 ML 10 ML UNIT-DOSE CUPS PO ONE (22:09)
[2025-06-05 14:34] VITALS: BP 95/73; PULSE 106; RESP 20; TEMP 97.7
== END 2025-06-05 14:57 | DRG 59 ==
LOC: JER 17:57 → JERBED 22:05 → OBSVTOIN 05-31 00:36 → J8W 05-31 01:14
PROVIDERS: ADMIT Hospitalist; ATTEND Nurse Practitioner Family
DX: G35.D Multiple sclerosis, unspecified (principal); E44.0 Moderate protein-calorie malnutrition; I50.42 Chronic combined systolic (congestive) and diastolic (congestive) heart failure; M79.604 Pain in right leg; I11.0 Hypertensive heart disease with heart failure; D63.8 Anemia in other chronic diseases classified elsewhere; E78.5 Hyperlipidemia, unspecified; R29.6 Repeated falls; Z68.23 Body mass index [BMI] 23.0-23.9, adult; M41.9 Scoliosis, unspecified; D86.9 Sarcoidosis, unspecified; M48.00 Spinal stenosis, site unspecified
CPT/HCPCS: 36415; 71046-TC-FY; 73521-TC-FY; 73552-TC-RT-FY; 73560-TC-RT-FY; 73590-TC-RT-FY; 73610-TC-RT-FY; 73630-TC-RT-FY; 80053; 81003; 83735; 84100; 85025; 85610; 85730; 86803; 86850; 86900; 86901; 87389; 87637-QW; 93005; 93010; 93970-TC; 97116-GP; 97162-GP; 99285-25; G0378